=== PATIENT | female | born 1960 | race Caucasian/White ===

== ENCOUNTER 2024-01-23 10:56 | Outpatient (OUT) | payer MEDICARE, SELFPAY ==
--- NOTE | 2024-01-23 11:05 | ECG_ITS ---
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
--- NOTE | 2024-01-23 11:47 | P.GSHP_ITS ---
History of Present Illness History of Present Illness Chief complaint: left kidney stone Narrative: Patient presents for preadmission testing. Please see HPI from Dr. Smith dated January 20, 2024. Review of Systems ROS Narrative Please see ROS from Dr. Smith dated January 20, 2024. [facility] Medical History (Updated 01/23/24 @ 11:23 by Paulina Crowe NP) Back pain ?M54.9 - Dorsalgia, unspecified (ICD-10) Arthritis ?M19.90 - Unspecified osteoarthritis, unspecified site (ICD-10) Depression ?F32.A - Depression, unspecified (ICD-10) COVID-19 ?U07.1 - COVID-19 (ICD-10) Sleep apnea ?G47.30 - Sleep apnea, unspecified (ICD-10) Pneumonia ?J18.9 - Pneumonia, unspecified organism (ICD-10) Migraine ?G43.909 - Migraine, unspecified, not intractable, without status migrainosus (ICD-10) S/P extracorporeal shock wave therapy ?Z98.890 - Other specified postprocedural states (ICD-10) S/P extracorporeal shock wave therapy ?Z98.890 - Other specified postprocedural states (ICD-10) Kidney stones ?N20.0 - Calculus of kidney (ICD-10) Cataract ?H26.9 - Unspecified cataract (ICD-10) GERD (gastroesophageal reflux disease) ?K21.9 - Gastro-esophageal reflux disease without esophagitis (ICD-10) Elevated blood pressure reading in office without diagnosis of hypertension ?R03.0 - Elevated blood-pressure reading, without diagnosis of hypertension (ICD-10) Postoperative nausea and vomiting ?R11.2 - Nausea with vomiting, unspecified (ICD-10) ?Z98.890 - Other specified postprocedural states (ICD-10) Surgical History (Updated 01/23/24 @ 11:23 by Paulina Crowe NP) H/O hand surgery ?Z98.890 - Other specified postprocedural states (ICD-10) History of cholecystectomy ?Z90.49 - Acquired absence of other specified parts of digestive tract (ICD- 10) History of dilation and curettage ?Z98.890 - Other specified postprocedural states (ICD-10) History of dilation and curettage ?Z98.890 - Other specified postprocedural states (ICD-10) History of colonoscopy ?Z98.890 - Other specified postprocedural states (ICD-10) History of carpal tunnel release ?Z98.890 - Other specified postprocedural states (ICD-10) History of carpal tunnel release ?Z98.890 - Other specified postprocedural states (ICD-10) History of section ?Z98.891 - History of uterine scar from previous surgery (ICD-10) History of section ?Z98.891 - History of uterine scar from previous surgery (ICD-10) History of appendectomy ?Z90.49 - Acquired absence of other specified parts of digestive tract (ICD- 10) History of hysterectomy ?Z90.710 - Acquired absence of both cervix and uterus (ICD-10) Family History (Updated 01/23/24 @ 11:23 by Paulina Crowe NP) Other Family history of colon cancer Family history of hypertension Family history of prostate cancer Family history of stroke Social History (Updated 01/23/24 @ 11:16 by Paulina Crowe NP) Within the past year, how often did you have a drink containing alcohol: never Score interpretation: A score less than 3 is consistent with normal alcohol consumption. Smoking status: Never smoker Non-prescribed substance use: denies use Highest level of school completed/degree received: high school graduate Meds Home Medications and Allergies Home Medications ?Medication ?Instructions ?Recorded ?Confirmed ?Type sertraline 100 mg tablet 100 mg PO DAILY 01/23/24 01/23/24 History tamsulosin 0.4 mg capsule 0.4 mg PO Q24H 01/23/24 01/23/24 History Allergies Allergy/AdvReac Type Severity Reaction Status Date / Time No Known Drug Allergies Allergy Verified 01/23/24 11:14 Exam Narrative Exam Narrative: Constitutional: Awake, alert, comfortable, well-appearing, nontoxic, interactive, vital signs as charted Head: Normocephalic, atraumatic Neck: Supple, normal appearance, normal range of motion, no meningeal signs, no lymphadenopathy Respiratory: No respiratory distress, breath sounds clear Cardiovascular: Regular rate and rhythm, strong and regular heart tones Abdomen: Nontender, normal bowel sounds, soft, no CVA tenderness Musculoskeletal: Normal gait, no swelling or edema Skin: No rashes or induration, no lesions, only visible skin inspected Neuro: No neurological deficits, normal sensation Psychiatric: Oriented ?3, flat affect Assessment and Plan Assessment and Plan (1) Kidney stones: Plan Cystoscopy, left ureteroscopy, laser lithotripsy, left stent placement scheduled with Dr. Smith February 05, 2024. The patient admits to dyspnea when climbing stairs but denies chest pain. She states she has never been treated for hypertension but has had an elevated blood pressure reading recently since her kidney stone episode. She states her PCP is aware of the blood pressure and has elected to monitor the situation. The patient had an abnormal preliminary EKG today in preadmission testing which was reported to Dr. Smith's office.
[2024-01-23 12:54] LABS: Basophils Absolute Auto 0.1 10^3/uL (0.0-0.1); Basophils Percent Auto 0.6 % (0.2-2.0); Eosinophils Absolute Auto 0.5 10^3/uL (0.0-0.7); Eosinophils Percent Auto 5.5 % (0.9-7.0); Hematocrit 42.2 % (36.0-48.0); Hemoglobin 13.7 g/dL (12.0-16.0); Immature Granulocytes Abs Auto 0.02 10^3/uL (0.00-0.03); Immature Granulocytes Pct Auto 0.2 % (0.0-0.5); Lymphocytes Absolute Auto 2.9 10^3/uL (1.2-3.8); Lymphocytes Percent Auto 33.9 % (20.5-60.0); Mean Corpuscular HGB Conc 32.5 g/dL (29.9-35.2); Mean Corpuscular Hemoglobin 28.5 pg (26.7-34.0); Mean Corpuscular Volume 87.9 fL (81.0-99.0); Mean Platelet Volume 9.8 fL (9.5-13.5); Monocytes Absolute Auto 0.6 10^3/uL (0.3-0.8); Monocytes Percent Auto 6.8 % (1.7-12.0); Neutrophils Absolute Auto 4.6 10^3/uL (1.4-6.5); Platelet Count 309 10^3/uL (150-450); Red Cell Distribution Width 13.2 % (11.0-15.0); White Blood Count 8.7 10^3/uL (4.0-11.0)
[2024-01-23 13:03] LABS: Partial Thromboplastin Time 29.2 sec (22.3-36.2); Prothrombin Time 9.8 sec (9.0-11.6)
[2024-01-23 13:16] LABS: Anion Gap 7.3; BUN Creatinine Ratio 17.3; Calcium 9.7 mg/dL (8.5-10.1); Carbon Dioxide 30.7 mmol/L (21.0-32.0); Chloride 105 mmol/L (98-107); Estimated GFR (African America >60 (>=60); Estimated GFR (Non-African Ame 53 (>=60); Glucose 112 mg/dL (74-106); INR <0.93; Sodium 139 mmol/L (136-145)
== END 2024-01-23 10:57 | disposition home or self-care (01) ==
LOC: PST 11:00
PROVIDERS: PCP Family Medicine; Visit Provider Urology
DX: Z01.810 Encounter for preprocedural cardiovascular examination (principal); Z01.812 Encounter for preprocedural laboratory examination; Z01.818 Encounter for other preprocedural examination; N20.0 Calculus of kidney
CPT/HCPCS: 80048; 85025; 85610; 85730; 93005; G0463

== ENCOUNTER 2024-03-06 14:07 | Outpatient (OUT) | payer MEDICARE, SELFPAY ==
--- OUTSIDE RECORDS SUMMARY | 2024-03-06 14:13 | XMS_ITS | CCD ---
Author Organization [facility] Care Team Providers Care Production Painter Name Role Phone Soraya Hammer Primary Care Physician [phone] KAITLIN, DR MACIAS Admitting Unavailable MADRIGAL, DR MACIAS Attending Unavailable MISC, DR DIMAS Primary Care Unavailable MADRIGAL, DR MACIAS Consulting Unavailable ZIEBER, DR OUMOU Jose Consulting Unavailable AGUBOSIM, BELEM Consulting Unavailable DORKOSKIE, SORAYA Consulting Unavailable MADRIGAL, DR MACIAS Admitting Unavailable MADRIGAL, DR MACIAS Attending Unavailable MADRIGAL, DR MACIAS Consulting Unavailable WEST, DR REI Bernstein Consulting Unavailable VALDEZ, LUCHO Consulting Unavailable MCCORNACK, OUMOU Consulting Unavailable MADRIGAL, DR MACIAS Admitting Unavailable MADRIGAL, DR MACIAS Attending Unavailable MADRIGAL, DR MACIAS Admitting Unavailable MADRIGAL, DR MACIAS Attending Unavailable MADRIGAL, DR MACIAS Admitting Unavailable MADRIGAL, DR MACIAS Attending Unavailable REQUEST, DR TRONCOSO LISTED Primary Care Unavaila ble MADRIGAL, DR MACIAS Consulting Unavailable MADRIGAL, DR MACIAS Admitting Unavailable MADRIGAL, DR MACIAS Attending Unavailable MISC, DR DIMAS Primary Care Unavailable MADRIGAL, DR MACIAS Consulting Unavailable Self, Referral Attending Provider Unavailable FRED Smith Primary Care Provider FRED Smith Referring Provider [phone] CORA BRANHAM Primary Care Physician [phone] Marty Vargas Primary Care Physician Self, Referral Attending Provider Unavailable DO Marty Vargas Primary Care Provider Marty Vargas Primary Care Unavailable Self, Referral Attending Unavailable Self, Referral Admitting Unavailable Marlin Smith Attending Unavailable Marlin Smith Admitting Unavailable Marlin Smith Attending Unavailable Marlin Smith Admitting Unavailable Marlin Smith Attending Unavailable Parag Toscano Attending Unavailable Marlin Smith Attending Unavailable Sam, Marty Arndt Attending Unavailable MD Greg Soni Consulting Unavailable Link, Marty Arndt Admitting Unavailable Link, Marty Arndt Attending Unavailable Link, Marty Arndt Referring Unavailable Greg Soni Consulting Unavailable Greg Soni Consulting Unavailable Link, Marty Arndt Attending Unavailable LIZCORA COX Attending Unavailable Link, Marty Arndt Attending Unavailable Link, Marty Arndt Attending Unavailable Link, Marty Arndt Attending Unavailable ClarisaminYoung wiley Attending Unavaila ble Young Vasquez Referring Unavaila ble Gilberto MADRIGAL Attending Unavailable Bret, Nany A Referring Unavailable Bret, Nany A Admitting Unavailable Bret, Nany A Attending Unavailable Bret, Nany A Referring Unavailable LIZ, CORA A Admitting Unavailable LIZ, CORA A Attending Unavailable LIZ, CORA A Admitting Unavailable LIZ, CORA A Attending Unavailable Parag Toscano Attending Unavailable STEFANY BECKHAM Attending Unavailable Miguel Ag Attending Unavailable LIZ, CORA A Referring Unavailable Bret, Nany A Attending Unavailable Link, Marty Arndt Attending Unavailable Allergies Allergy Classification Reported Allergen(s) Allergy Type Date of Onset Reaction(s) Facility (20 sources) Adhesive Tape; Translations: [Tape] Drug allergy Blister [facility] (2 sources) Adhesive agent Drug allergy (disorder) [facility] (3 sources) Hypoallergenic paper tape; Translations: [Hypoallergenic paper tape] Propensity to adverse reactions (disorder) [facility] Repository Medications Current Medications Medication Drug Class(es) Dates Sig (Normalized) Sig (Original) acetaminophen 325 mg / HYDROcodone bitartrate 5 mg oral tablet (3 sources) Opioid Agonist Start: 10-20-2021 take 1 tablet by mouth every eight hours Mcintire 325 mg-5 mg oral tablet 1 tab(s), Oral, q8hr, 15 tab(s), Refill(s) 0, every 8 hours PRN for pain, [facility], 158, cm, 10/20/21 9:52:00 EDT, Height/Length Dosing, 94.9, kg, 10/20/21 9:52:00 EDT, Weight Dosing Start Date: 10/20/21 Status: Ordered acetaminophen 325 mg / oxyCODONE hydrochloride 5 mg oral tablet (1 source) Opioid Agonist Start: 12-27-2023 End: 12-30-2023 Percocet 5 mg-325 mg oral tablet 1 tab(s), Oral, q6hr as needed for pain for 3 day(s), 15 tab(s), Refill(s) 0, [facility], 159, cm, 12/27/23 10:55:00 EDT, Height/Length Dosing, 84, kg, 12/27/23 10:55:00 EDT, Weight Dosing Start Date: 12/27/23 Stop Date: 12/30/23 Status: Ordered amoxicillin 500 mg oral capsule (1 source) Penicillin-class Antibacterial Start: 08-14-2023 take 1 capsule by mouth every twelve hours amoxicillin 500 mg Cap 500 mg = 1 cap(s), Oral, q12hr, # 20 cap(s), Refills(s) 0, Pharmacy: [facility], 158, cm, 08/14/23 9:13:00 EDT, Height/Length Dosing, 87.5, kg, 08/14/23 9:13:00 EDT, Weight Dosing Start Date: 08/14/23 Status: Ordered amoxicillin 875 mg / clavulanate 125 mg oral tablet (3 sources) Penicillin-class Antibacterial Start: 02-13-2023 End: 02-23-2023 Augmentin 875 mg-125 mg Tab 1 tab(s), Oral, BID for 10 day(s), 20 tab(s), Refill(s) 0, [facility], 158, cm, 02/13/23 14:30:00 EDT, Height/Length Dosing, 86.1, kg, 02/13/23 14:30:00 EDT, Weight Dosing Start Date: 02/13/23 Stop Date: 02/23/23 Status: Ordered azithromycin 250 mg oral tablet (1 source) Macrolide Antimicrobial Start: 02-15-2022 End: 02-20-2022 Zithromax 250 mg Tab = 1 packet(s), Oral, As Directed, as directed on package labeling, X 5 day(s), # 6 tab(s), Refills(s) 0, Pharmacy: [facility], 158, cm, 02/15/22 16:53:00 EDT, Height/Length Dosing, 94.3, kg, 02/15/22 16:53:00 EDT, Weight Dosing Start Date: 02/15/22 Stop Date: 02/20/22 Status: Ordered brompheniramine maleate 0.4 mg/ml / dextromethorphan hydrobromide 2 mg/ml / pseudoephedrine hydrochloride 6 mg/ml oral solution (4 sources) alpha-Adrenergic Agonist, Uncompetitive H-unxlfx-W-aspartate Receptor Antagonist, Sigma-1 Agonist Start: 02-15-2022 take 10 mL by mouth four times daily for cough and congestion Bromfed DM oral syrup 10 mL, Oral, QID for cough and congestion, 200 mL, Refill(s) 0, [facility], 158, cm, 02/15/22 16:53:00 EDT, Height/Length Dosing, 94.3, kg, 02/15/22 16:53:00 EDT, Weight Dosing Start Date: 02/15/22 Status: Ordered cephalexin 500 mg oral capsule (2 sources) Cephalosporin Antibacterial Start: 10-18-2021 End: 10-25-2021 take 1 capsule by mouth every six hours Keflex 500 mg Cap 500 mg = 1 cap(s), Oral, q6hr, X 7 day(s), # 28 cap(s), Refills(s) 0, Pharmacy: [facility], 158, cm, 10/18/21 17:33:00 EDT, Height/Length Dosing, 82, kg, 10/18/21 17:33:00 EDT, Weight Dosing Start Date: 10/18/21 Stop Date: 10/25/21 Status: Ordered Clobetasol (10 sources) Corticosteroid Start: 11-10-2021 clobetasol topical 0.05% cream 1 rebeka, Topical, BID, 45 gram, Refill(s) 1, [facility], 158, cm, 11/10/21 11:48:00 EDT, Height/Length Dosing, 92.4, kg, 11/10/21 11:48:00 EDT, Weight Dosing Start Date: 11/10/21 Status: Ordered Start: 10-07-2020 clobetasol top ical 0.05% cream 1 rebeka, Topical, BID, 45 gram, Refill(s) 1, [facility], 157.2, cm, 03/31/20 5:29:00 EST, Height/Length Dosing, 80.2, kg, 03/31/20 5:29:00 EST, Weight Dosing Start Date: 10/07/20 Status: Ordered doxepin hydrochloride 10 mg oral capsule (5 sources) Tricyclic Antidepressant Start: 03-30-2020 take 2 capsules by mouth once daily at bedtime doxepin 10 mg Cap 20 mg = 2 cap(s), Oral, Once a day (at bedtime), Insomnia Start Date: 03/30/20 Status: Ordered Fish Oils (11 sources) Start: 04-16-2023 Fish Oil Refill(s) 0 Start Date: 04/16/23 Status: Ordered hyoscyamine sulfate 0.125 mg oral tablet (1 source) Start: 07-04-2023 take 1 tablet by mouth four times daily Levsin 0.125 mg SL Tab 0.125 mg = 1 tab(s), Oral, QID, # 40 tab(s), Refills(s) 0, Pharmacy: [facility], 158, cm, 07/04/23 9:24:00 EST, Height/Length Dosing, 87, kg, 07/04/23 9:24:00 EST, Weight Dosing Start Date: 07/04/23 Status: Ordered linaclotide 0.072 mg oral capsule (1 source) Guanylate Cyclase-C Agonist Start: 07-04-2023 take 1 capsule by mouth once daily Linzess 72 mcg oral capsule 72 mcg = 1 cap(s), Oral, Daily, # 30 cap(s), Refills(s) 3, Pharmacy: [facility], 158, cm, 07/04/23 9:24:00 EST, Height/Length Dosing, 87, kg, 07/04/23 9:24:00 EST, Weight Dosing Start Date: 07/04/23 Status: Ordered naproxen 500 mg delayed release oral tablet (19 sources) Nonsteroidal Anti-inflammatory Drug Start: 06-26-2021 take 1 tablet by mouth twice daily naproxen 500 mg oral enteric coated tablet 500 mg = 1 tab(s), Oral, BID, # 28 tab(s), Refills(s) 0, Pharmacy: [facility], 158, cm, 10/18/21 17:33:00 EDT, Height/Length Dosing, 82, kg, 10/18/21 17:33:00 EDT, Weight Dosing Start Date: 10/18/21 Status: Ordered Miralax (20 sources) Osmotic Laxative Start: 04-16-2023 MiraLax Refill(s) 0 Start Date: 04/16/23 Status: Ordered Start: 03-03-2020 take 1 g by mouth once daily M iraLax gm, Oral, Daily, Refill(s) 0 Start Date: 03/03/20 Status: Ordered rOPINIRole 0.5 mg oral tablet (10 sources) Nonergot Dopamine Agonist Start: 09-20-2015 take 0.5 mg by mouth once daily ropinirole 0.5 mg, Oral, Daily, Refills(s) 0, Spasm Start Date: 09/20/15 Status: Ordered sertraline 100 mg oral tablet (20 sources) Serotonin Reuptake Inhibitor Start: 08-02-2023 sertraline 100 mg Tab 50 mg = 0.5 tab(s), Oral, Daily, # 90 tab(s), Refills(s) 1, Pharmacy: [facility], 158, cm, 07/04/23 9:24:00 EST, Height/Length Dosing, 87, kg, 07/04/23 9:24:00 EST, Weight Dosing Start Date: 08/02/23 Status: Ordered Start: 08-02-2023 take 1 tablet by [facility] once daily sertraline 100 mg Tab 100 mg = 1 tab(s), Oral, Daily, # 90 tab(s), Refills(s) 1, Pharmacy: [facility], 158, cm, 07/04/23 9:24:00 EST, Height/Length Dosing, 87, kg, 07/04/23 9:24:00 EST, Weight Dosing Start Date: 08/02/23 Status: Ordered Start: 04-16-2023 sertraline 100 mg Tab Refills(s) 0 Start Date: 04/16/23 Status: Ordered Start: 11-10-2021 take 1 tablet by radha th once daily Zoloft 100 mg Tab 100 mg = 1 tab(s), Oral, Daily, # 90 tab(s), Refills(s) 3, Pharmacy: [facility], 158, cm, 11/10/21 11:48:00 EDT, Height/Length Dosing, 92.4, kg, 11/10/21 11:48:00 EDT, Weight Dosing Start Date: 11/10/21 Status: Ordered Start: 10-07-2020 take 1 tablet by [facility] once daily Zoloft 100 mg Tab 100 mg = 1 tab(s), Oral, Daily, # 90 tab(s), Refills(s) 3, Pharmacy: [facility], 157.2, cm, 03/31/20 5:29:00 EST, Height/Length Dosing, 80.2, kg, 03/31/20 5:29:00 EST, Weight Dosing Start Date: 10/07/20 Status: Ordered tamsulosin hydrochloride 0.4 mg oral capsule (18 sources) alpha-Adrenergic Ashley Start: 01-20-2024 take 1 capsule by mouth once daily Flomax 0.4 mg Cap 0.4 mg = 1 cap(s), Oral, Daily, # 30 cap(s), Refills(s) 1, Pharmacy: [facility], 159, cm, 01/20/24 13:18:00 EDT, Height/Length Dosing, 84, kg, 01/20/24 13:18:00 EDT, Weight Dosing Start Date: 01/20/24 Status: Ordered Start: 12-27-2023 take 1 capsule by [facility] once daily Flomax 0.4 mg Cap 0.4 mg = 1 cap(s), Oral, Daily, # 10 cap(s), Refills(s) 0, Pharmacy: [facility], 159, cm, 12/27/23 10:55:00 EDT, Height/Length Dosing, 84, kg, 12/27/23 10:55:00 EDT, Weight Dosing Start Date: 12/27/23 Status: Ordered Start: 10-18-2021 End: 10-22-2021 take 1 capsule by mouth once daily tamsulosin 0.4 mg Cap 0.4 mg = 1 cap(s), Oral, Daily, # 30 cap(s), Refills(s) 0, Pharmacy: [facility], 158, cm, 10/20/21 9:52:00 EDT, Height/Length Dosing, 94.9, kg, 10/20/21 9:52:00 EDT, Weight Dosing Start Date: 10/20/21 Status: Ordered Zofran ODT 4 mg Tab-Dis (8 sources) Start: 12-27-2023 take 1 tablet by mouth three times daily Zofran ODT 4 mg Tab-Dis 4 mg = 1 tab(s), Oral, TID, # 15 tab(s), Refills(s) 0, Pharmacy: [facility], 159, cm, 12/27/23 10:55:00 EDT, Height/Length Dosing, 84, kg, 12/27/23 10:55:00 EDT, Weight Dosing Start Date: 12/27/23 Status: Ordered Start: 06-26-2021 take 1 tablet by radha th every eight hours as needed for nausea Zofran ODT 4 mg Tab-Dis 4 mg = 1 tab(s), Oral, q8hr, PRN Nausea/Vomiting, # 20 tab(s), Refills(s) 0, Pharmacy: [facility], 157.5, cm, 06/26/21 2:38:00 EST, Height/Length Dosing, 85, kg, 06/26/21 2:38:00 EST, Weight Dosing Start Date: 06/26/21 Status: Ordered Completed/Discontinued Medications Medication Drug Class(es) Dates Sig (Normalized) Sig (Original) polyethylene glycol 3350 621183 mg / potassium chloride 1480 mg / sodium bicarbonate 5720 mg / sodium chloride 53353 mg powder for oral solution (3 sources) Osmotic Laxative Start: 04-16-2023 NuLYTELY Mills oral powder for reconstitution See Instructions, 1 EA, Refill(s) 0, Prior to colonoscopy., [facility], 160, cm, 04/16/23 8:45:00 EST, Height/Length Dosing, 85.9, kg, 04/16/23 8:45:00 EST, Weight Dosing Start Date: 04/16/23 Status: Ordered Problems Active Problems Problem Classification Problem Date Documented Da te Episodic/Chronic Abdominal pain (20 sources) Abdominal pain; Translations: [Unspecified abdominal pain] Onset: 10-18-2021 Episodic Bacterial infection; unspecified site (2 sources) Bacterial infectious disease; Translations: [Other specified bacterial agents as the cause of diseases classified elsewhere] Onset: 02-13-2023 Episodic Biliary tract disease (20 sources) Gallstone 07-10-2013 Episodic Calculus of urinary tract (20 sources) Kidney stone; Translations: [Calculus of kidney] Onset: 10-18-2021 07-05-2021 Episodic Diabetes mellitus without complication (20 sources) Impaired fasting glycemia; Translations: [Impaired fasting glucose] Onset: 02-25-2023 02-04-2020 Episodic Disorders of lipid metabolism (20 sources) Hyperlipidemia; Translations: [Hyperlipidemia, unspecified] Onset: 11-09-2021 02-04-2020 Chronic Diverticulosis and diverticulitis (20 sources) Diverticulitis 09-23-2017 Chronic Essential hypertension (1 source) Essential hypertension; Translations: [Essential (primary) hypertension] Onset: 08-09-2023 Chronic Genitourinary symptoms and ill-defined conditions (20 sources) Stress incontinence (female) (male); Translations: [Genuine stress incontinence] Onset: 11-01-2021 Chronic Genitourinary symptoms and ill-defined conditions (20 sources) Microscopic hematuria; Translations: [Other microscopic hematuria] Onset: 10-20-2021 Episodic Inflammatory diseases of female pelvic organs (20 sources) Vaginitis 02-04-2020 Episodic Mood disorders (20 sources) Chronic depression; Translations: [Major depressive disorder] Onset: 11-09-2021 09-14-2019 Chronic Nausea and vomiting (1 source) Nausea; Translations: [Nausea] Onset: 10-18-2021 Episodic Osteoarthritis (20 sources) Arthritis; Translations: [Unspecified osteoarthritis, unspecified site] Onset: 11-09-2021 07-05-2021 Chronic Other and unspecified benign neoplasm (17 sources) History of polyp of colon; Translations: [Personal history of colonic polyps] Onset: 04-16-2023 Episodic Other circulatory disease (3 sources) Elevated blood-pressure reading without diagnosis of hypertension; Translations: [Elevated blood-pressure reading, without diagnosis of hypertension] Onset: 02-13-2023 Episodic Other circulatory disease (20 sources) Elevated blood pressure 01-31-2023 Episodic Other connective tissue disease (20 sources) Achilles tendinitis 01-31-2023 Episodic Other connective tissue disease (11 sources) Heel pain 01-31-2023 Episodic Other diseases of kidney and ureters (6 sources) Obstruction of pelviureteric junction 01-20-2024 Episodic Other ear and sense organ disorders (1 source) Impacted cerumen; Translations: [Impacted cerumen, unspecified ear] Onset: 02-17-2023 Episodic Other ear and sense organ disorders (1 source) Impacted cerumen in right ear; Translations: [Impacted cerumen, right ear] Onset: 02-25-2023 Episodic Other gastrointestinal disorders (1 source) Constipation by outlet obstruction; Translations: [Outlet dysfunction constipation] Onset: 07-04-2023 Episodic Other hereditary and degenerative nervous system conditions (20 sources) Restless legs 02-04-2020 Chronic Other hereditary and degenerative nervous system conditions (1 source) Restless legs syndrome; Translations: [RESTLESS LEGS SYNDROME] Onset: 07-24-2021 Chronic Other nervous system disorders (20 sources) Carpal tunnel syndrome 02-01-2012 Chronic Other non-traumatic joint disorders (20 sources) Pain in wrist 09-14-2019 Episodic Other nutritional; endocrine; and metabolic disorders (20 sources) Body mass index 30+ - obesity 02-04-2020 Chronic Other nutritional; endocrine; and metabolic disorders (10 sources) Simple obesity 2020 Chronic Other nutritional; endocrine; and metabolic disorders (1 source) Obesity, unspecified; Translations: [OBESITY UNSPECIFIED] Onset: 11-09-2021 Chronic Other nutritional; endocrine; and metabolic disorders (1 source) Body mass index (BMI) 35.0-35.9, adult; Translations: [BODY MASS INDEX BMI 35.0-35.9 ADULT] Onset: 11-09-2021 Chronic Other nutritional; endocrine; and metabolic disorders (1 source) Body mass index (BMI) 38.0-38.9, adult; Translations: [BODY MASS INDEX BMI 38.0-38.9 ADULT] Onset: 07-24-2021 Chronic Other nutritional; endocrine; and metabolic disorders (3 sources) Obese class I; Translations: [Body mass index (BMI) 34.0-34.9, adult] Onset: 02-13-2023 Chronic Other nutritional; endocrine; and metabolic disorders (20 sources) Obesity; Translations: [Obesity, unspecified] Onset: 01-30-2024 01-31-2023 Chronic Other nutritional; endocrine; and metabolic disorders (1 source) Metabolic disease; Translations: [Other specified metabolic disorders] Onset: 07-04-2023 Chronic Other nutritional; endocrine; and metabolic disorders (3 sources) Obese class II; Translations: [Body mass index (BMI) 35.0-35.9, adult] Onset: 08-14-2023 Chronic Other nutritional; endocrine; and metabolic disorders (20 sources) Abnormal weight gain 02-04-2020 Episodic Other nutritional; endocrine; and metabolic disorders (2 sources) Abnormal weight loss; Translations: [Abnormal weight loss] Onset: 04-16-2023 Episodic Other nutritional; endocrine; and metabolic disorders (6 sources) Weight loss 04-16-2023 Episodic Other screening for suspected conditions (not mental disorders or infectious disease) (2 sources) Encounter for screening mammogram for malignant neoplasm of breast; Translations: [Electrocardiogram abnormal] Onset: 01-03-2024 Episodic Other skin disorders (12 sources) Dystrophia unguium; Translations: [Nail dystrophy] Onset: 08-09-2023 Episodic Other upper respiratory infections (17 sources) Acute upper respiratory infection; Translations: [Acute upper respiratory infection, unspecified] Onset: 02-15-2022 Episodic Otitis media and related conditions (16 sources) Otitis media; Translations: [Otitis media, unspecified, right ear] Onset: 02-15-2022 Episodic Residual codes; unclassified (20 sources) Obstructive sleep apnea of adult 02-04-2020 Chronic Residual codes; unclassified (1 source) Obstructive sleep apnea (adult) (pediatric); Translations: [OBSTRUCTIVE SLEEP APNEA] Onset: 11-09-2021 Chronic Residual codes; unclassified (1 source) Sleep apnea, unspecified; Translations: [SLEEP APNEA UNSPECIFIED] Onset: 11-09-2021 Chronic Residual codes; unclassified (1 source) Obstructive sleep apnea syndrome; Translations: [Obstructive sleep apnea (adult) (pediatric)] Onset: 01-30-2024 Chronic Residual codes; unclassified (2 sources) Family history of malignant neoplasm of digestive organ; Translations: [Family history of malignant neoplasm of digestive organs] Onset: 04-16-2023 Episodic Residual codes; unclassified (15 sources) Family history of cancer of colon 04-16-2023 Episodic Residual codes; unclassified (1 source) Acquired absence of organ; Translations: [Acquired absence of other specified parts of digestive tract] Onset: 07-04-2023 Episodic Residual codes; unclassified (1 source) Pelvic organ finding; Translations: [Acquired absence of both cervix and uterus] Onset: 07-04-2023 Episodic Residual codes; unclassified (3 sources) Patient encounter status; Translations: [Other specified health status] Onset: 08-09-2023 Episodic Unclassified (1 source) CONTACT W/AND (SUSP) EXPOS COVID-19; Translations: [CONTACT W/AND (SUSP) EXPOS COVID-19] Onset: 07-19-2021 Past or Other Problems Problem Classification Problem Date Documented Da te Episodic/Chronic Unclassified (20 sources) Patient encounter status 02-04-2020 Unclassified (1 source) Obese class I; Translations: [Obesity, class 1] Onset: 02-18-2024 Results Test Name Value Interpretation Reference Range Facil ity Ambulatory Visit Summaryon 1 Ambulatory Visit Summary Ambulatory Visit Summary SHEA PROCTOR :1960 Visit Date:02/18/2024 Ambulatory Visit Instructions Your Diagnosis Encounter for initial annual wellness visit (AWV) in Medicare patient MDD (major depressive disorder), recurrent episode, mild Kidney stones Adult BMI 34.0-34.9 kg/sq m Class 1 obesity due to excess calories in adult Your Care Team Attending Physician Marty Lozoya DO Primary Care Physician - Marty Vargas DO This Is Your Medications List polyethylene glycol 3350 (MiraLax) sertraline (sertraline 100 mg Tab) tamsulosin (Flomax 0.4 mg Cap) Procedures Performed Exercise stress ECG test (02/03/2024), Release of tendon (04/13/2020), Abdominal hysterectomy, Appendectomy, C SECTION X2, Carpal tunnel release, Colonoscopy, D&C - Dilatation and curettage, Laparoscopic cholecystectomy. Discharge Vitals Heart Rate (Peripheral) 94 Respiratory Rate 16 Blood Pressure 118/70 Height 158 cm Height 62 in Weight 85 kg Weight 187 lb BMI 34.05 What to do next Scheduled Follow-Up Appointments Saturday 11:00 AM EDT Where: [facility] [address] [place] [address]- Medications What How Much When Instructions Unchanged polyethylene glycol 3350 (MiraLax) Unchanged sertraline (sertraline 100 mg Tab) 0.5 Tablets By Mouth Every day Unchanged tamsulosin (Flomax 0.4 mg Cap) 1 Capsules By Mouth Every day Allergies Tape (Blister) Problems Ongoing - Any problem that you are currently receiving treatment for. Arthritis CTS - Carpal tunnel syndrome Dystrophic nail Elevated blood pressure reading Family history of colon cancer History of colon polyps History of nephrolithiasis Hyperlipidemia Impaired fasting glucose Kidney stones MDD (major depressive disorder), recurrent episode, mild Obesity Obstruction of left ureteropelvic junction (UPJ) due to stone Obstructive sleep apnea, adult Restless leg syndrome Stress incontinence Historical - Any problem that you are no longer receiving treatment for. Abnormal weight gain Achilles tendonitis Acute bacterial sinusitis Adult BMI 33.0-33.9 kg/sq m Adult BMI 35.0-35.9 kg/sq m BMI 35.0-35.9,adult Chronic depression Diverticulitis Flank pain Gallstones Screening for diabetes mellitus Screening, lipid Vaginitis Patient Survey You may receive a survey via text or e-mail asking about your office visit. Please share your experience with us by completing your survey. We appreciate your feedback and thank you for choosing us for your care. Education Materials Preventive Care 65 Years and Older, Female Preventive care refers to lifestyle choices and visits with your health care provider that can promote health and wellness. Preventive care visits are also called wellness exams. What can I expect for my preventive care visit? Counseling Your health care provider may ask you questions about your: ??? Medical history, including: ? Past medical problems. ? Family medical history. ? and menstrual history. ? History of falls. ??? Current health, including: ? Memory and ability to understand (cognition). ? Emotional well-being. ? Home life and relationship well-being. ? Sexual activity and sexual health. ??? Lifestyle, including: ? Alcohol, nicotine or tobacco, and drug use. ? Access to firearms. ? Diet, exercise, and sleep habits. ? Work and work environment. ? Sunscreen use. ? Safety issues such as seatbelt and bike helmet use. Physical exam Your health care provider will check your: ??? Height and weight. These may be used to calculate your BMI (body mass index). BMI is a measurement that tells if you are at a healthy weight. ??? Waist circumference. This measures the distance around your waistline. This measurement also tells if you are at a healthy weight and may help predict your risk of certain diseases, such as type 2 diabetes and high blood pressure. ??? Heart rate and blood pressure. ??? Body temperature. ??? Skin for abnormal spots. What immunizations do I need? Vaccines are usually given at various ages, according to a schedule. Your health care provider will recommend vaccines for you based on your age, medical history, and lifestyle or other factors, such as travel or where you work. What tests do I need? Screening Your health care provider may recommend screening tests for certain conditions. This may include: ??? Lipid and cholesterol levels. ??? Hepatitis C test. ??? Hepatitis B test. ??? HIV (human immunodeficiency virus) test. ??? STI (sexually transmitted infection) testing, if you are at risk. ??? Lung cancer screening. ??? Colorectal cancer screening. ??? Diabetes screening. This is done by checking your blood sugar (glucose) after you have not e (more content not included)... Normal [facility] Family Medicine Office/Clini c Noteon 02-20-2024 Family Medicine Office/Clinic Note Family Medicine Office/Clinic Note Chief Complaint Initial AWV History of Present Illness I was in the office and available for consultation and to provide direct supervision at the time of this visit. I have provided supervision of the care team and have reviewed this chart and office note and agree with the plan of care. Review of Systems PHQ Score Initial Depression Screen Score: 0 SCORE Physical Exam Vitals & Measurements HR: 94(Peripheral) RR: 16 BP: 118/70 SpO2: 95% HT: 158 cm HT: 62 in WT: 85 kg WT: 187 lb BMI: 34.05 Assessment/Plan 1. Encounter for initial annual wellness visit (AWV) in Medicare patient (Z00.00: Encounter for general adult medical examination without abnormal findings) The patient was given a customized and personalized print out of all the current AHRQ USPSTF???s recommendations for preventative services and all current CDC recommended immunizations, relevant risk recommendations and the following patient brochures were given. Reviewed What can I expect during my Medicare preventative care visit CDC-Falls Prevention and home safety screening reviewed. Patient denies any falls in last 12 months, voices no worry about falling, exhibits no problems with sitting and standing. Pt voices understanding with keeping walk way area free of clutter to prevent tripping and/or falling. Porter Advance Directives reviewed, printed packet given to pt. Pt to bring completed copy back to place on file in chart. Patient denies any problems with ADL???s and Instrumental ADL???s. Cognitive screening completed with memory and clock face drawing. No decline noted. Immunization Record reviewed with the patient. Discussed Flu vaccine with educational handout and availability. Pt declined the Flu vaccine today. COVID vaccines have been administered, immunization record is up to date. Allergies and medications reviewed and up to date. Patient denies concerns with taking medication as prescribed, reviewed OTC medications with patient with medication list up to date. Blood tests were reviewed: Discussed what tests need to be updated. Colonoscopy up to date, due for repeat 2028 DEXA scan and Mammogram were ordered. Reviewed concerns with bladder control over past 6 months with no concerns. Reviewed pain symptoms with patient: Reviewed all outside providers that patient follows. Last visit summary notes available in chart and/or have been requested. Follow up scheduled as directed. AWV has been scheduled 02/23/2025 Medicare provides yearly screening for alcohol and depression concerns. This is completed during our Medicare wellness visit for those who do not have a current diagnosis of depression or concerns with alcohol use. I spent a total of 15 minutes on this date of service which included preparing to see the patient, face to face patient care, completing clinical documentation, obtaining and/or reviewing separately obtained history, counseling and educating the patient with handouts. Explanations were provided with reviewing questionnaires. AUDIT risk assessment screening completed, risk score (0) with patient denying concerns with use. Completed PHQ-2 risk assessment for depression with risk score (0), negative findings. Patient has been reminded to notify the provider if there would be a change or concerns with symptoms with fear, unable to sleep, worrying too much or feeling down and/or sad with lost of interest with daily activities. Will continue to monitor with screening yearly during Medicare wellness visits. 2. MDD (major depressive disorder), recurrent episode, mild (F33.0: Major depressive disorder, recurrent, mild) Patient taking Sertraline daily, voices medication is effective. Follows up with PCP with medication management and symptom control. PHQ-9 risk assessment completed with negative findings. Total risk score is 02. Patient denies any suicidal ideations at this time. Reviewed additional signs/symptoms to monitor for and report to provider. 3. Kidney stones (N20.0: Calculus of kidney) Pt is currently seeing Urology and taking Tamsulosin daily as directed. Pt is waiting for Urology to call her back for Lithotripsy treament. Pt to follow up with Urology and PCP as directed. 4. Adult BMI 34.0-34.9 kg/sq m (Z68.34: Body mass index [BMI] 34.0-34.9, adult) The standard range for ages 18 and older is >=18.5 and < 25 kg/m2. Your BMI of 34.05 today was above this range, this falls in the obese category and there are medical benefits to weight loss. BMI monitoring is helpful with identifying a weight problem that may be related to a medical condition, or may increase the risk for medical problems. Your BMI and weight management will be followed at subsequent visits with your provider and monitored for progress. GOAL: promoting healthier lifestyle with diet changes in order to reach a healthy weight. 5. Class 1 obesity due to excess calories in adult (E66.811: Obesity, class 1) A combination of diet and exercise can hel (more content not included)... Normal [facility] Comment on above: Result Comment: Elec tronically Signed By: Marty Vargas DO\.br\Date and Time Signed: 02/20/24 10:46 EDT\.br\Electronically Co-Signed By: Maynor Kelly LPN\.br\Date and Time Co-Signed: 02/18/24 15:29 EDT Ambulatory Visit Summaryon 1 Ambulatory Visit Summary Ambulatory Visit Summary SHEA PROCTOR :1960 Visit Date:02/18/2024 Ambulatory Visit Instructions Your Care Team Attending Physician - Marty Vargas DO Primary Care Physician - Marty Vargas DO This Is Your Medications List polyethylene glycol 3350 (MiraLax) sertraline (sertraline 100 mg Tab) tamsulosin (Flomax 0.4 mg Cap) Procedures Performed Exercise stress ECG test (02/03/2024), Release of tendon (04/13/2020), Abdominal hysterectomy, Appendectomy, C SECTION X2, Carpal tunnel release, Colonoscopy, D&C - Dilatation and curettage, Laparoscopic cholecystectomy. Discharge Vitals Heart Rate (Peripheral) 94 Respiratory Rate 16 Blood Pressure 118/70 Height 158 cm Height 62 in Weight 85 kg Weight 187 lb BMI 34.05 What to do next Scheduled Follow-Up Appointments Saturday 11:00 AM EDT Where: [facility] [place] [address] [address] [place] [id number]- Medications What How Much When Instructions Unchanged polyethylene glycol 3350 (MiraLax) Unchanged sertraline (sertraline 100 mg Tab) 0.5 Tablets By Mouth Every day Unchanged tamsulosin (Flomax 0.4 mg Cap) 1 Capsules By Mouth Every day Allergies Tape (Blister) Problems Ongoing - Any problem that you are currently receiving treatment for. Arthritis CTS - Carpal tunnel syndrome Dystrophic nail Elevated blood pressure reading Family history of colon cancer History of colon polyps History of nephrolithiasis Hyperlipidemia Impaired fasting glucose Kidney stones MDD (major depressive disorder), recurrent episode, mild Obesity Obstruction of left ureteropelvic junction (UPJ) due to stone Obstructive sleep apnea, adult Restless leg syndrome Stress incontinence Historical - Any problem that you are no longer receiving treatment for. Abnormal weight gain Achilles tendonitis Acute bacterial sinusitis Adult BMI 33.0-33.9 kg/sq m Adult BMI 35.0-35.9 kg/sq m BMI 35.0-35.9,adult Chronic depression Diverticulitis Flank pain Gallstones Screening for diabetes mellitus Screening, lipid Vaginitis Patient Survey You may receive a survey via text or e-mail asking about your office visit. Please share your experience with us by completing your survey. We appreciate your feedback and thank you for choosing us for your care. Normal [facility] Ambulatory Visit Summaryon 1 Ambulatory Visit Summary Ambulatory Visit Summary SHEA PROCTOR :1960 Visit Date:01/30/2024 Ambulatory Visit Instructions Your Diagnosis Preprocedural examination Abnormal EKG Obstructive sleep apnea, adult Obesity Hyperlipidemia Impaired fasting glucose BMI 35.0-35.9,adult Non-smoker Your Care Team Attending Physician - Marty Vargas DO Primary Care Physician - Marty Vargas DO This Is Your Medications List polyethylene glycol 3350 (MiraLax) sertraline (sertraline 100 mg Tab) tamsulosin (Flomax 0.4 mg Cap) Procedures Performed Release of tendon (04/13/2020), Abdominal hysterectomy, Appendectomy, C SECTION X2, Carpal tunnel release, Colonoscopy, D&C - Dilatation and curettage, Laparoscopic cholecystectomy. Discharge Vitals Heart Rate (Peripheral) 70 Blood Pressure 138/84 Height 158 cm Height 62 in Weight 87.5 kg Weight 192.5 lb BMI 35.05 What to do next Scheduled Follow-Up Appointments Saturday 11:00 AM EDT Where: [place] [address] [place] [address]- You Need to Complete the Following ECG Stress Exercise, 01/30/24, Routine, Order for future visit, Transport Mode: Ambulatory, Reason: Abnormal EKG, Abnormal EKG, pp_set_radiology_sub specialty, Not Required, [facility] Medications What How Much When Instructions Unchanged polyethylene glycol 3350 (MiraLax) Unchanged sertraline (sertraline 100 mg Tab) 0.5 Tablets By Mouth Every day Unchanged tamsulosin (Flomax 0.4 mg Cap) 1 Capsules By Mouth Every day Medications and Immunizations Administered Not Given influenza virus vaccine, inactivated, Parent Or Guardian Refuses Allergies Tape (Blister) Problems Ongoing - Any problem that you are currently receiving treatment for. Arthritis CTS - Carpal tunnel syndrome Dystrophic nail Elevated blood pressure reading Family history of colon cancer History of colon polyps History of nephrolithiasis Hyperlipidemia Impaired fasting glucose Kidney stones MDD (major depressive disorder), recurrent episode, mild Obesity Obstruction of left ureteropelvic junction (UPJ) due to stone Obstructive sleep apnea, adult Restless leg syndrome Stress incontinence Historical - Any problem that you are no longer receiving treatment for. Abnormal weight gain Achilles tendonitis Acute bacterial sinusitis Adult BMI 33.0-33.9 kg/sq m Adult BMI 35.0-35.9 kg/sq m BMI 35.0-35.9,adult Chronic depression Diverticulitis Flank pain Gallstones Screening for diabetes mellitus Screening, lipid Vaginitis Patient Survey You may receive a survey via text or e-mail asking about your office visit. Please share your experience with us by completing your survey. We appreciate your feedback and thank you for choosing us for your care. Fiorella Garcia [facility] Medicine Office/Clini c Noteon 01-30-2024 Family Medicine Office/Clinic Note Family Medicine Office/Clinic Note Chief Complaint Surgical Clearance HPI Staff Patient here for Surgical Clearance Surgery: Cysto/Lt Ureteroscopy/Laser Lithotripsy/Stent Placement Date: 02/05/24 Provider: Dr. Smith Labs: 12/27/23 EK01/23/24, patient is needing surgical clearance from results, form printed and handed to provider. - Patient would like form faxed and to have a copy. Lynnette: per pt 01/08/23, NOMS Dexa: due [place]: 06/18/23, repeat in 5 years Flu: declines AMW: scheduled 02/18/24 History of Present Illness Patient presents today for preprocedural evaluation. Patient states that they are having a cystoscopy with ureteroscopy procedure done by Dr. Smith, and the surgeon wishes to have preprocedural evaluation prior to this. Patient has a cardiac history that shows elevated BP readings as well as HLD. She has known DIANA. Home readings in the past have confirmed she is not baseline hypertensive, she continues to monitor her BP as we have discussed previously. She has no reported history of NE, CVA, DVT, or PE. She is on no anticoagulating agents. Patient has a pulmonary history that shows known history of DIANA above. She has no history of asthma, smoking, or congenital lung anomalies. She has no significant family pulmonary history. Patient's anesthesia history shows that no prior reactions to anesthesia. Patient's metabolic history shows that history of calcium oxylate nephrolithiasis. She has known DIANA as above. Presurgical testing showed hypertension noted above in cardiac history. Patient had noted shortness of breath as per pulmonary history above. Patient had an abnormal EKG that they wished to have evaluated as well. Labs were not concerning other than for impaired fasting glucose. Review of Systems PHQ Score Initial Depression Screen Score: 0 SCORE ROS - Provider Constitutional: no fever, no chills Skin: no rash, no lesions, yes dystrophic nail ENMT: no ear pain, no sore throat, no congestion, no hoarseness. Respiratory: no shortness of breath, no cough, no wheezing. Cardiovascular: no chest pain, no palpitations, no edema. Gastrointestinal: no nausea, no vomiting, no diarrhea, Musculoskeletal: no back pain, no trauma. Neurologic: no headache, no dizziness, no numbness, no weakness. Psychiatric: no sleeping problems, no irritability, yes mood swings/depression. Physical Exam Vitals & Measurements HR: 70(Peripheral) BP: 138/84 SpO2: 99% HT: 62 in HT: 158 cm WT: 87.5 kg WT: 192.5 lb BMI: 35.05 General: Well developed, well nourished, in no acute distress Head: Normocephalic/atraum atic Eyes: Pupils equal, round, and reactive to light. Sclerae normal, and extraocular movements intact Lungs: Normal respiratory effort and clear to auscultation Cardio: Regular rate and rhythm, normal S1 and S2, no murmur, no rub Musculoskeletal: No deformity or scoliosis noted. Normal range of motion. Joints normal. No erythema, edema, effusion, or ecchymosis Extremity: No clubbing, cyanosis, edema, or deformity, with normal ROM in both upper and lower bilateral extremities Neurologic: Grossly normal Skin: No rash, petechiae, suspicious lesions, dysmorphic nail of the left thumb, no sign of onychomycosis or paronychia Mental Status: Alert and oriented x3. Normal mood and affect Assessment/Plan 1. Preprocedural examination (Z01.818: Encounter for other preprocedural examination) Due to the anomalies seen in the EKG, namely the evidence of incomplete RBBB as well as the evidence of prior old NE in the inferolateral leads, I would recommend a stress test prior to proceeding with surgery planned by Dr. Smith. Will order for her today, will let urology know to reschedule her procedure. 2. Abnormal EKG (R94.31: Abnormal electrocardiogram [ECG] [EKG]) iRBBB with QRS widening and inversion of T waves in leads V1/V2, as well as pronounced R waves in inferolateral leads are concerning for old NE in these leads. Recommend stress test, order today as above. Ordered: ECG Stress Exercise 3. Obstructive sleep apnea, adult (G47.33: Obstructive sleep apnea (adult) (pediatric)) Patient continues to use CPAP nightly, and continues to gain benefit from use. Recommended patient continue with nightly use to retain benefit. Recommend patient continue to receive all supplies necessary for patient's good functioning and maintenance of CPAP machine. 4. Obesity (E66.9: Obesity, unspecified) The standard range for ages 18 and older is >=18.5 and < 25 kg/m2. Your BMI today was above this range, this falls in the overweight to obese category and there are medical benefits to weight loss. We can offer counselling, referral, and/or medical support in addressing this problem. Your BMI and weight management will be followed at subsequent visits. 5. Hyperlipidemia (E78.5: Hyperlipidemia, unspecified) Due for lab recheck, discussed today. Not directly contributory to surgical risk. 6. Impaired fasting glucose (R73.01: Impaired f (more content not included)... Normal [facility] Comment on above: Result Comment: Elec tronically Signed By: Marty Vargas DO.br\Date and Time Signed: 01/30/24 12:23 EDT Calculus Analysison 01-29-20 24 Calcium oxalate dihydrate Infrared spectroscopy (Stone) [Mass fraction] 20 % Invalid Interpretation Code [facility] Comment on above: Performed By: #### 1 [id number] #### [facility] [address] [facility] [place] [address] Calcium oxalate monohydrate (Stone) [Mass fraction] 80 % Invalid Interpretation Code [facility] Comment on above: Performed By: #### 1 [id number] #### [facility] [address] [place] [address] Color (Stone) Brown Invalid Interpretation Code [facility] Comment on above: Performed By: #### 1 [id number] #### [facility] [address] [place] [address] Composition Comment Invalid Interpretation Code [facility] Comment on above: Result Comment: Perc entage (Represents the % composition) Performed By: #### 1 [id number] #### [facility] [address] [place] [address] Disclaimer: Comment Invalid Interpretation Code [facility] Comment on above: Result Comment: This test was developed and its performance characteristics determined by [facility]. It has not been cleared or approved by the Food and Drug Administration. Performed at: [address] [id number] PhD Ida Bernstein Performed By: #### 1 [id number] #### [facility] [address] [place] [address] Laboratory comment Lee (Report) Comment Invalid Interpretation Code [facility] Comment on above: Result Comment: Phys magdielan questions regarding Calculi Analysis [facility] at: [phone]. Performed By: #### 1 [id number] #### [facility] [address] [place] [id number] Please Note: Comment Invalid Interpretation Code [facility] Comment on above: Result Comment: Calc nestor report will follow via computer, mail or check embosser delivery. Performed By: #### 1 [id number] #### [facility] [address] [place] [address] Size (Stone) [Entitic vol] 2x2 Invalid Interpretation Code [facility] Comment on above: Result Comment: Mult iple pieces received. Dimensions of the largest piece reported. Performed By: #### 1 [id number] #### [facility] [address] [place] [address] Specimen source subject Nom Kidney Invalid Interpretation Code [facility] Comment on above: Performed By: #### 1 [id number] #### [facility] [address] [place] [address] Stone Photo Comment Invalid Interpretation Code [facility] Comment on above: Result Comment: Phot ograph will follow under a separate cover Performed By: #### 1 [id number] #### [facility] [address] [place] [address] Weight (Stone) 20 mg Invalid Interpretation Code [facility] Comment on above: Performed By: #### 1 [id number] #### [facility] [address] [place] [address] XR Abdomen 1 Viewon 01-21-20 24 XR Abdomen 1 View Exam Date/Time: 01/17/2024 12:06 EDT Reason for Exam: kidney stone;Kidney stone Report IMPRESSION: 6 MM LEFT RENAL CALCULUS. EXAMINATION: XR Abdomen 1 View HISTORY: Kidney stones TECHNIQUE: Frontal view of the abdomen and pelvis COMPARISON: CT 12/27/2023 FINDINGS: A 6 mm calcification projects over the inferior pole of the left kidney. No calcifications identified over the right renal shadow or expected course of the left ureter. Pelvic phleboliths are again identified. Nonobstructive bowel gas pattern. No evidence of free air. No acute osseous abnormality. Ordering Provider: Marlin Smith FINAL REPORT Dictated: 01/21/2024 3:05 pm Terry Khan DO Signed (Electronic Signature): 01/21/2024 3:05 pm Signed by: Terry Khan DO Transcribed by: EBEN Technologist: FARHEEN Technical Comments Radiation Dose: Ka,r in mGy = na DAP = na Normal [facility] Ambulatory Visit Summaryon 0 01-20-2024 Ambulatory Visit Summary Ambulatory Visit Summary SHEA PROCTOR :1960 Visit Date:01/20/2024 Ambulatory Visit Instructions Your Diagnosis Obstruction of left ureteropelvic junction (UPJ) due to stone Kidney stones Your Care Team Attending Physician - Marlin Smith MD Primary Care Physician - Marty Vargas DO This Is Your Medications List tamsulosin (Flomax 0.4 mg Cap) Contact prescribing physician if questions or concerns omega-3 polyunsaturated fatty acids (Fish Oil) ondansetron (Zofran ODT 4 mg Tab-Dis) polyethylene glycol 3350 (MiraLax) sertraline (sertraline 100 mg Tab) Procedures Performed Release of tendon (04/13/2020), Abdominal hysterectomy, Appendectomy, C SECTION X2, Carpal tunnel release, Colonoscopy, D&C - Dilatation and curettage, Laparoscopic cholecystectomy. Discharge Vitals Heart Rate (Peripheral) 90 Respiratory Rate 19 Blood Pressure 151/88 Height 159 cm Height 63 in Weight 84 kg Weight 184.8 lb BMI 33.23 What to do next Scheduled Follow-Up Appointments Saturday 11:00 AM EDT Where: [facility] [address] [place] [address]- You Need to Schedule the Following Appointments Follow Up with Luis DOLL, Marlin Ellison, MINNIE, [facility] When: Where: [phone] Follow Up with Marlin Smith MD, URL, [facility] When: Where: Medications What How Much When Instructions Unchanged tamsulosin (Flomax 0.4 mg Cap) 1 Capsules By Mouth Every day Pickup at [facility] Unchanged omega-3 polyunsaturated fatty acids (Fish Oil) Contact prescribing physician if questions or concerns Unchanged ondansetron (Zofran ODT 4 mg Tab-Dis) 1 Tablets By Mouth 3 times a day Contact prescribing physician if questions or concerns Unchanged polyethylene glycol 3350 (MiraLax) Contact prescribing physician if questions or concerns Unchanged sertraline (sertraline 100 mg Tab) 0.5 Tablets By Mouth Every day Contact prescribing physician if questions or concerns Pharmacy Information [facility]: [address] [place], [place] [id number] [phone] Allergies Tape (Blister) Problems Ongoing - Any problem that you are currently receiving treatment for. Arthritis CTS - Carpal tunnel syndrome Dystrophic nail Elevated blood pressure reading Family history of colon cancer History of colon polyps History of nephrolithiasis Hyperlipidemia Impaired fasting glucose Kidney stones MDD (major depressive disorder), recurrent episode, mild Obesity Obstruction of left ureteropelvic junction (UPJ) due to stone Obstructive sleep apnea, adult Restless leg syndrome Stress incontinence Historical - Any problem that you are no longer receiving treatment for. Abnormal weight gain Achilles tendonitis Acute bacterial sinusitis Adult BMI 33.0-33.9 kg/sq m Adult BMI 35.0-35.9 kg/sq m BMI 35.0-35.9,adult Chronic depression Diverticulitis Flank pain Gallstones Screening for diabetes mellitus Screening, lipid Vaginitis Patient Survey You may receive a survey via text or e-mail asking about your office visit. Please share your experience with us by completing your survey. We appreciate your feedback and thank you for choosing us for your care. Education Materials Kidney Stones Kidney stones are rock-like masses that form inside of the kidneys. Kidneys are organs that make pee (urine). A kidney stone may move into other parts of the urinary tract, including: ? The tubes that connect the kidneys to the bladder (ureters). ? The bladder. ? The tube that carries urine out of the body (urethra). Kidney stones can cause very bad pain and can block the flow of pee. The stone usually leaves your body through your pee. A doctor may need to take out the stone. What are the causes? Kidney stones may be caused by: ? Too much calcium in the body. This may be caused by too much parathyroid hormone in the blood. ? Uric acid crystals in the bladder. The body makes uric acid when you eat certain foods. ? Narrowing of one or both of the ureters. ? A kidney blockage that you were born with. ? Past surgery on the kidney or the ureters. What increases the risk? You are more likely to develop this condition if: ? You have had a kidney stone in the past. ? Other people in your family have had kidney stones. ? You do not drink enough water. ? You eat a diet that is high in protein, salt (sodium), or sugar. ? You are very overweight (obese). What are the signs or symptoms? Symptoms of a kidney stone may include: ? Pain in the side of the belly, right below the ribs. Pain usually spreads to the groin. ? Needing to pee often or right away. ? Pain when peeing. ? Blood in your pee. ? Feeling like you may vomit (nauseous). ? Vomiting. ? Fever and chills. How is this treated? Treatment depends on the size, (more content not included)... Normal [facility] Urology Office/Clinic Noteon 01-20-2024 Urology Office/Clinic Note Urology Office/Clinic Note Chief Complaint ER F/U HPI Staff 64 yo female here for [facility] ER f/up. Last seen by Alphonse Alas 06/14/22. Previous dx: kidney stone. CT AP w con 05/07/23 [facility] - 5 mm calculus LLP. No hydro. KUB 01/17/24 Pt presented to [facility] ER 12/27/[address] AP wo con 12/27/23. Labs ~Cr 0.9, eGFR 71 UA ~RBC >75 Dysuria: no Incomplete bladder emptying: no Hematuria: no Frequency: 1-2 hours Urgency: mild Nocturia: 2x's Stream: good stream Post void dripping: no Wearing pads/ Depends: no Urge incontinence: rarely Stress incontinence: occasionally Incontinence without Sensory Awareness: no Abdominal pain: yes Flank pain: no History of Present Illness Tests Reviewed: Reviewed UA, external records: CT, Labs, UA, ER records I have reviewed the previous health record information and history for this patient from Alphonse Alas, ER Notes I have reviewed and verified the staff HPI to be accurate for this encounter. There have been no associated fever, chills, flank pain, or blood in the urine. Denies any urinary infections since last encounter. Review of Systems PHQ Score Initial Depression Screen Score: 0 SCORE ROS - Provider Constitutional: denies weight loss, denies hot flashes. Eyes: denies eye problems. Gastrointestinal: denies nausea, denies vomiting. Cardiovascular: denies chest pain or angina. Integumentary: no dryness Musculoskeletal: denies musculoskeletal symptoms. ENMT: denies otolaryngeal symptoms. Respiratory: no shortness of breath. Heme/Lymph: denies easy bleeding tendency, denies easy bruising tendency. Psychiatric: no confusion, no anxiety. Genitourinary: See HPI. Physical Exam Vitals & Measurements HR: 90(Peripheral) RR: 19 BP: 151/88 HT: 63 in HT: 159 cm WT: 84 kg WT: 184.8 lb BMI: 33.23 General Appearance: alert , no acute distress, well nourished, well developed female. Genitourinary: bladder nonpalpable, moderate flank pain. Assessment/Plan 64 yo female with history of stones previously treated by Dr. Madrigal here for recent ER visit 5 mm L UPJ stone 1. Obstruction of left ureteropelvic junction (UPJ) due to stone (N20.1: Calculus of ureter) CT AP wo con 12/27/23 - mild-mod L pelvocaliectasis with 1.3 mm calculus lower pole, 5 mm calculus at left UPJ. Labs ~Cr 0.9, eGFR 71 UA ~RBC >75 KUB 01/17/24 [place] [facility] [place], on review stone still present Discussed management options including medical expulsive therapy x 4-6 week vs intervention including extracorporeal shockwave lithotripsy vs ureteroscopy with laser lithotripsy/stone basket extraction possible stent. Risks/benefits of each were discussed including but not limited to: MET- renal damage, pain or infection; ESWL- bleeding, hematoma, pain, infection, inability to break up the stone, ureteral obstruction, cardiac arrhythmias, damage to surrounding structures and need for additional procedures; ureteroscopy - bleeding, pain, infection, damage to surrounding structures, ureteral perforation, stricture, inability to treat the stone and need for additional procedures. If a stent is placed, pt understands this is not permanent and needs to be removed or exchanged within 3 months to prevent encrustation, infection, permanent renal damage and need for more invasive procedures. -Pt elected to proceed with scheduling Left ureteroscopy, Laser Litho/stone extraction, stent placement. The procedural risks, benefits, details, and treatment alternatives have been discussed with the patient. These include bleeding, infection, inability to break or retrieve all of the stone, injury to the ureter (the tube which connects the kidney to the bladder), injury to the kidney scarring of the ureter, and need for repeat procedures, among others. Full informed consent has been obtained. Will order General anesthesia. -Flomax sent to pharmacy today, pt with intermittent LLQ pain -Fluids, bowel regimen due to constipation which can be contributing to pain 2. Kidney stones (N20.0: Calculus of kidney) Patient does have a hx of kidney stones S/P left ESWL 11/09/21 Complaining today of intermittent lower left abdominal pain CT AP w con 05/07/23 [facility] - 5 mm calculus LLP. No hydro. Pt presented to [facility] ER 12/27/[address] AP wo con 12/27/23 - mild-mod L pelvocaliectasis with 1.3 mm calculus lower pole 5 mm calculus at left UPJ. Labs ~Cr 0.9, eGFR 71 UA ~RBC >75 KUB 01/17/24 [place] [facility] [place] stone unchanged from CT scan. We discussed the etiology of kidney stone formation, including genetic predisposition, dietary factors, and different metabolism in patients. We discussed management options moving forward including general dietary modifications, metabolic stone work-up including serum labs and 24-hour urine analysis. -Pt opted for dietary changes including increase fluids Ordered: Urnls Dip Stick Auto w/o Microscopy POC 12651 Urology Procedure Order Orders: tamsulosin, 0.4 (more content not included)... Normal [facility] Comment on above: Result Comment: Elec tronically Signed By: Luis DOLL, Marlin Ellison\.br\Date and Time Signed: 01/20/24 13:54 EDT\.br\Electronically Co-Signed By: Chelle Hester MA\.br\Date and Time Co-Signed: 01/20/24 13:43 EDT MM screening mammo BI w/CADo n 01-03-2024 MM screening mammo BI w/CAD [facility] [place] [address] Mammography Report Signed Patient: Shea Proctor MR#: [id number] : 1960 Acct:[id number] Age/Sex: 63 / F ADM Date: 01/03/24 Loc: [place] Room: Type: [facility] Attending Dr: Referral Self Copies to: Marty Vargas DO SELF,REFERRAL Ordering Provider: SELF,REFERRAL Date of Service: 01/03/24 MM/MM screening mammo BI w/CAD: SCREENING CLINICAL DATA: Screening for malignancy. SCREENING MAMMOGRAM - FULL FIELD DIGITAL WITH TOMOSYNTHESIS AND CAD COMPARISON:Mammogram s dating back to 2019 Tomosynthesis craniocaudal and mediolateral oblique views of both breasts were obtained using low- dose digital technique. This examination was reviewed with the aid of CAD. FINDINGS: The breast tissue is composed of scattered fibroglandular densities. There are no dominant masses, typically malignant calcifications or architectural distortion. There has been no significant interval change. MM/MM screening mammo BI w/CAD IMPRESSION: NO MAMMOGRAPHIC EVIDENCE OF MALIGNANCY. ROUTINE FOLLOW-UP IS RECOMMENDED IN ONE YEAR. RESULT CODE: 1 Negative DENSITY CODE: 2 (approximately 25-50% glandular) FOLLOW UP: 1YR The false-negative rate of mammography is approximately 10-percent. Management of a palpable abnormality must be based on clinical grounds. Patient was entered into a reminder system with a target due date for the next mammogram. Impression dictated by: Dusty Stacy Jr., D.OTrevor01/03/2024 3:03 PM Dictation Location: DW01 Transcribed By: ISA 01/03/24 1503 Dictated By: Dusty Stacy Jr, DO 01/03/24 1502 Signed By: 01/03/24 1503 Normal [facility] ED Note-Physicianon 12-28-19 ED Note-Physician ED Note-Physician Basic Information Time Seen: Silas PEARLSharif 12/27/2023 11:06 Chief Complaint L flank pain with frequency. hx kidney stones. denies hematuria. denies N/V, fevers. c/o chills. History of Present Illness 63-year-old female comes into the ED for evaluation of flank pain. She awoke with left-sided flank pain today. She has a history of kidney stones and is concerned for the same. She had some nausea but no vomiting. No fever or chills. No difficulty urinating or hematuria. Pain does radiate around to the left side of her abdomen. No prior treatments. Review of Systems A 10 point review of systems is negative except as noted above. Medical and Surgical History: Reviewed and noted Social history: Lives at home Tobacco: Denies Physical Exam Vitals & Measurements T: 36.6 ?C(Oral) HR: 75(Monitored) RR: 17 BP: 138/77 SpO2: 96% HT: 159 cm WT: 84 kg BMI: 33.23 Nurses notes and vital signs reviewed and patient is not hypoxic. General: Patient appears uncomfortable Skin: Warm, dry. Head: Atraumatic. Neck: No JVD. Eye: Normal conjunctiva. Ears, Nose, Mouth, and Throat: Moist mucous membranes. Cardiovascular: Strong distal pulses. Chest wall: Respiratory: Respirations are nonlabored. Back: Normal range of motion. Left CVA tenderness Musculoskeletal: Normal ROM with no gross deformity. Gastrointestinal: Soft and nontender Urological: Neurological: Awake and alert. No focal deficits. Follows commands. Psychiatric: Cooperative. Medical Decision Making Patient comes in for left flank tenderness with a history of kidney stones. Laboratory studies are reviewed and noted. No leukocytosis, renal function is preserved. Urinalysis does show hematuria without infection. CT scan reviewed by the radiologist. There is a 5 mm calculus. Results are discussed with patient. She feels much improved after IV fluids and pain medications. She is discharged home Percocet, Flomax, Zofran, provided with a urine strainer and given urology follow-up. Patient was encouraged to return to the ED if symptoms worsen or change. Assessment/Plan Kidney stones (N20.0: Calculus of kidney) Ordered: acetaminophen-oxycod one, 1 tab(s), Oral, q6hr as needed for pain for 3 day(s), 15 tab(s), Refill(s) 0, [facility], 159, cm, 12/27/23 10:55:00 EDT, Height/Length Dosing, 84, kg, 12/27/23 10:55:00 EDT, Weight Dosing Orders: morphine, 4 mg = 1 mL, Injection, IV Push, Once, Stop date 12/27/23 11:16:00 EDT, STAT, Start date 12/27/23 11:16:00 EDT, 12/27/23 11:16:00 EDT ondansetron, 4 mg = 2 mL, Injection, IV Push, Once, Stop date 12/27/23 11:16:00 EDT, STAT, Start date 12/27/23 11:16:00 EDT, 12/27/23 11:16:00 EDT ondansetron, 4 mg = 1 tab(s), Oral, TID, # 15 tab(s), Refills(s) 0, Pharmacy: [facility], 159, cm, 12/27/23 10:55:00 EDT, Height/Length Dosing, 84, kg, 12/27/23 10:55:00 EDT, Weight Dosing Sodium Chloride 0.9% intravenous solution, 1,000 mL, Soln-IV, IV, Once, Stop date 12/27/23 11:16:00 EDT, STAT, Start date 12/27/23 11:16:00 EDT, Infuse over 61, minute(s) tamsulosin, 0.4 mg = 1 cap(s), Oral, Daily, # 10 cap(s), Refills(s) 0, Pharmacy: [facility], 159, cm, 12/27/23 10:55:00 EDT, Height/Length Dosing, 84, kg, 12/27/23 10:55:00 EDT, Weight Dosing CT Abdomen/Pelvis w/o Contrast Urine Strainer to go Medications Administered Given morphine 4 mg/mL Inj, 4 mg, IV Push NS 1000 ml Bolus, 1000 mL, IV ondansetron 4 mg/2 mL Inj, 4 mg, IV Push Disposition Plan Patient Discharge Condition Disposition: Discharged home Condition: Improved and stable Counseled: Patient and/or family were counseled to workup, results, treatment plan and follow-up recommendations Discharge Prescription List Prescriptions Flomax 0.4 mg Cap, 0.4 mg= 1 cap(s), Oral, Daily Percocet 5 mg-325 mg oral tablet, 1 tab(s), Oral, q6hr, PRN Zofran ODT 4 mg Tab-Dis, 4 mg= 1 tab(s), Oral, TID Follow-up With When Contact Information Sohail RICHEY In 3 days 12/30/[address] [place] [phone] Business (1) Additional Instructions: Patient Education Kidney Stones Attestation I performed a substantive part of the MDM during the patient?s E/M visit. I personally made or approved the documented management plan and acknowledge its risk of complications. (Independent Interpretation) My (EKG/X-Ray/US/CT) interpretation as above. (Discussion) Management/test interpretation discussed with APC. This report was transcribed using voice recognition software. Every effort was made to ensure accuracy, however, inadvertently computerized can line examiner mistakes may be present. Appropriate healthcare PPE was used in evaluating this patient. Problem List/Past Medical History Ongoing Arthritis CTS - Carpal tunnel syndrome Dystrophic nail Elevated blood pressure reading Family history of colon cancer History of colon polyps History of nephrolithiasis (more content not included)... Normal [facility] Comment on above: Result Comment: Elec tronically Signed By: Sharif Rosen PA-C\.br\Date and Time Signed: 12/27/23 15:21 EDT\.br\Electronically Co-Signed By: Parag Toscano M.D.\.br\Date and Time Co-Signed: 12/28/23 07:15 EDT CHEMISTRYOrdered By: SYSTEM SYSTEM on 12-27-2023 Albumin [Mass/Vol] 4.3 g/dL Normal 3.3 - 5.0 gm/dL R emisol Chem Albumin/Globulin [Mass ratio] 1.5 {ratio} Normal 1.1 - 2.2 Remisol Chem ALP [Catalytic activity/Vol] 90 [iU]/d Normal 21 - 98 Int._Unit/L Remisol Chem ALT No additional P-5'-P [Catalytic activity/Vol] 17 [iU]/d Normal 6 - 46 Int._Unit/L Remisol Chem Anion gap [Moles/Vol] 12 mmol/L Normal 6 - 16 mEq/L Remisol Chem AST [Catalytic activity/Vol] 17 [iU]/d Normal 5 - 43 Int._Unit/L Remisol Chem Bilirubin [Mass/Vol] 0.4 mg/dL Normal 0.0 - 1.1 mg/dL Remisol Chem Bilirubin.direct [Mass/Vol] 0.1 mg/dL Normal 0.0 - 0.4 mg/dL Remisol Chem Bilirubin.indirect [Mass or moles/Vol] 0.3 mg/dL Normal 0.1 - 0.9 mg/dL Remisol Chem Calcium [Mass/Vol] 9.4 mg/dL Normal 8.9 - 11.1 mg/dL Remisol Chem Chloride [Moles/Vol] 105 mmol/L Normal 101 - 111 mmol/ L Remisol Chem CO2 [Moles/Vol] 28 mmol/L Normal 21 - 31 mmol/L Remis ol Chem Creatinine [Mass/Vol] 0.9 mg/dL Normal 0.5 - 1.3 mg/dL Remisol Chem eGFR 71 mL/min/1.73 m2 Normal >=59mL/min /1.73 m2 Remisol Chem Globulin (S) [Mass/Vol] 2.9 g/dL Normal 1.4 - 4.0 gm/dL Remisol Chem Glucose [Mass/Vol] 117 mg/dL Normal 55 - 199 mg/dL Re misol Chem Lipase [Catalytic activity/Vol] 11 U/L Low 13 - 58 unit/L Remisol Chem Potassium [Moles/Vol] 4.5 mmol/L Normal 3.5 - 5.3 mmol/L Remisol Chem Protein [Mass/Vol] 7.2 g/dL Normal 6.0 - 7.8 gm/dL R emisol Chem Sodium [Moles/Vol] 140 mmol/L Normal 135 - 145 mmol/L Remisol Chem Urea nitrogen [Mass/Vol] 13 mg/dL Normal 5 - 21 mg/dL Remisol Chem Urea nitrogen/Creatinine [Mass ratio] 14 mg/mg Normal 10 - 20 Remisol Chem ED Clinical Summaryon 08-30- 2024 ED Clinical Summary ED Clinical Summary [address] [address] ED Clinical Summary Person Information Name: SHEA PROCTOR/[facility]_Patricio Age: 63 Years : 1960 Sex: Female Language: Marshallese PCP: Marty Vargas DO Marital Status: Phone: [phone] Visit Id: Visit Reason: Chills; Flank pain; POSS KIDNEY STONE / FLANK/BACK PAIN Speciality: Acuity: 3 Enc Type: Emergency Med Service: Emergency Arrival: 12/27/2023 10:44:01 Discharge: 12/27/2023 14:16:37 LOS: 000 03:32 Checkin: 12/27/2023 10:44:01 Checkout: 12/27/2023 14:16:37 Dispo Type: Home (Routine DC) EVENTS: Event Name Event Status Request Date/Time Start Date/Time Complete Date/Time Arrive Complete 12/27/2023 10:44:01 12/27/2023 10:44:01 12/27/2023 10:44:01 Document Home Meds Request 12/27/2023 10:44:01 Triage Complete 12/27/2023 10:44:01 12/27/2023 10:55:16 12/27/2023 10:55:16 Registration Complete 12/27/2023 10:46:34 12/27/2023 10:46:34 12/27/2023 10:46:34 Reg Complete Request 12/27/2023 10:46:34 Reg Bed Request Complete 12/27/2023 10:46:34 12/27/2023 10:46:34 12/27/2023 10:46:34 Pending Labs Complete 12/27/2023 10:56:05 12/27/2023 11:14:32 12/27/2023 12:14:12 Lab Complete 12/27/2023 10:56:05 12/27/2023 12:14:12 Bed Assign Complete 12/27/2023 11:04:16 12/27/2023 11:04:16 12/27/2023 11:04:16 Dr Exam Complete 12/27/2023 11:04:16 12/27/2023 11:06:35 12/27/2023 11:06:35 RN Exam Complete 12/27/2023 11:04:16 12/27/2023 11:37:40 12/27/2023 11:37:40 Registration Request 12/27/2023 11:06:35 Dr Exam Complete 12/27/2023 11:08:27 12/27/2023 11:08:27 12/27/2023 11:08:27 CT Complete 12/27/2023 11:16:50 12/27/2023 11:40:10 12/27/2023 11:54:31 Meds Admin Complete 12/27/2023 11:16:50 12/27/2023 11:31:49 Pending Labs Complete 12/27/2023 11:45:58 12/27/2023 11:45:58 12/27/2023 12:14:12 Lab Complete 12/27/2023 11:45:58 12/27/2023 11:45:58 12/27/2023 12:14:12 Discharge Complete 12/27/2023 13:29:18 12/27/2023 14:16:44 12/27/2023 14:16:44 Patient Care Complete 12/27/2023 13:32:34 12/27/2023 13:52:35 Transfer Complete 12/27/2023 14:16:44 12/27/2023 14:16:44 12/27/2023 14:16:44 ADDRESS: [facility] [phone] PHYS DOC NOTES: MEDICAL INFORMATION: Prescriptions Given: New Medications [facility], [address] [place] [place], [place] [phone], [phone] acetaminophen-oxycod one (Percocet 5 mg-325 mg oral tablet) 1 Tablets By Mouth every 6 hours as needed as needed for pain for 3 Days. Refills: 0. ondansetron (Zofran ODT 4 mg Tab-Dis) 1 Tablets By Mouth 3 times a day. Refills: 0. tamsulosin (Flomax 0.4 mg Cap) 1 Capsules By Mouth every day. Refills: 0. Medications to Continue with No Changes Other Medications omega-3 polyunsaturated fatty acids (Fish Oil) polyethylene glycol 3350 (MiraLax) sertraline (sertraline 100 mg Tab) 0.5 Tablets By Mouth every day. Refills: 1. PATIENT EDUCATION INFORMATION: Instructions: Kidney Stones Follow up: With: Address: When: [address], [address], [address] [address] Business (1) In 3 days 12/30/2023 DIAGNOSIS: Kidney stones Normal [facility] ED Patient Summaryon 024 ED Patient Summary ED Patient Summary [address] [address] Patient Discharge Instructions Person Information Name: SHEA PROCTOR Age: 63 Years Arrival Date: 12/27/2023 10:44:01 Discharge Diagnosis: Kidney stones Primary Care Physician: Marty Vargas DO Provider Information Primary Provider: Parag Toscano M.D. Advanced Shrimp Picker:Sharif Rosen PA-C The exam and treatment you received in the Emergency Department were for an urgent problem and are not intended as complete care. It is important that you follow up with a doctor, nurse practitioner, or physician?s hotel assistant manager for ongoing care. If your symptoms become worse or you do not improve as expected and you are unable to reach your usual health care provider, you should return to the Emergency Department. We are available 24 hours a day. SHEA PROCTOR has been given the following list of patient education materials, prescriptions and follow-up instructions: Follow-up Instructions: With: Address: When: [address] [employer] [employer], [address], [address] [address] [employer] (1) In 3 days 12/30/2023 In the event that this physician does not participate in your insurance network, please consult with your insurance company to find a nearby participating provider. Patient Education Materials: Kidney Stones A MESSAGE TO ALL PATIENTS REGARDING OPIOIDS PRESCRIPTION OPIOIDS: WHAT YOU NEED TO KNOW Prescription opioids can be used to help relieve bqkrrbkx-ha-vuuguc pain and are often prescribed following a surgery or injury, or for certain health conditions. These medications can be an important part of the treatment but also come with serious risks. It is important to work with your healthcare provider to make sure you are getting the safest, most effective care. WHAT ARE THE RISKS AND SIDE EFFECTS OF OPIOID USE? Prescription opioids carry serious risks of addiction and overdose, especially with prolonged use. An opioid overdose, often marked by slowed breathing, can cause sudden . The use of prescription opioids can have a number of side effects as well, even when taken as directed: ? Tolerance?meaning you might need to take more of the medication for the same pain relief ? Physical dependence?meaning you have symptoms of withdrawal when a medication is stopped ? Increased sensitivity to pain ? Constipation ? Nausea, vomiting, and dry mouth ? Sleepiness and dizziness ? Confusion ? Depression ? Low levels of testosterone that can result in lower sex drive, energy, and strength ? Itching and sweating RISKS ARE GREATER WITH: ? History of drug misuse, substance use disorder, or overdose ? Mental health conditions (such as depression or anxiety) ? Sleep apnea ? Older age (65 years and older) ? Avoid alcohol while taking prescription opioids. Also, unless specifically advised by your health care provider, medications to avoid include: ? Benzodiazepines (such as Xanax or Valium) ? Muscle relaxants (such as Soma or Flexeril) ? Hypnotics (such as Ambien or Lunesta) ? Other prescription opioids KNOW YOUR OPTIONS Talk to your health care provider about ways to manage your pain that don?t involve prescription opioids. Some of these options may actually work better and have fewer risks and side effects. Options may include: ? Pain relievers such as acetaminophen, ibuprofen, and naproxen ? Some medication that are also used for depression or seizures ? Physical therapy and exercise ? Cognitive behavioral therapy, a psychological, goal-directed approach, in which patients learn how to modify physical, behavioral, and emotional triggers of pain and stress. IF YOU ARE PRESCRIBED OPIOIDS FOR PAIN: ? Never take opioids in greater amounts or more often than prescribed. ? Follow up with your primary health care provider. o Work together to create a plan on how to manage your pain. o Talk about ways to help manage your pain that don?t involve prescription opioids. o Talk about any and all concerns and side effects. ? Help prevent misuse and abuse o Never sell or share prescription opioids. o Never use another person?s prescription opioids. ? Store prescription opioids in a secure place and out of reach of others (this may include visitors, children, friends, and family). ? Safely dispose of unused prescription opioids: Find your community drug take-back program or your pharmacy mail-back program, or flush them down the toilet, following guidance from the Food and Drug Administration (www.fda.gov/Drugs/R esourcesForYou). ? Visit www.cdc.gov/drugover dose to learn about the risks of opioids abuse and overdose. ? If you believe you may be struggling with addiction, tell your health aged or disabled care worker and ask for guidance or call [facility]S National Helpline at 1-80 (more content not included)... Normal [facility] HEMATOLOGYOrdered By: SYSTEM SYSTEM on 12-27-2023 Basophils/100 WBC (Bld) 0.4 % Normal 0.0 - 2.0 % Remisol Heme Basophils/Leukocytes Auto (Bld) [Pure # fraction] 0.0 E9/L Normal 0.0 - 0.2 E9/L Remisol Heme Eosinophils (Bld) [#/Vol] 0.5 E9/L Normal 0.0 - 0.5 E9/L Remisol Heme Eosinophils/100 WBC (Bld) 5.2 % Normal 0.0 - 8.0 % Remisol Heme Erythrocyte distribution width (RBC) [Ratio] 14.4 % High 10.9 - 14.2 % Remisol Heme Hematocrit (Bld) [Volume fraction] 41.1 % Normal 34.0 - 46.0 % Remisol Heme Hemoglobin (Bld) [Mass/Vol] 13.6 g/dL Normal 12.0 - 16.0 gm/dL Remisol Heme Lymphocytes (Bld) [#/Vol] 3.2 E9/L Normal 1.0 - 4.0 E9/L Remisol Heme Lymphocytes/100 WBC (Bld) 33.7 % Normal 14.0 - 50.0 % Remisol Heme MCH (RBC) [Entitic mass] 28.5 pg Normal 27.0 - 34.0 pg Remisol Heme MCHC (RBC) [Mass/Vol] 33.0 g/dL Normal 31.4 - 36.0 gm/dL Remisol Heme MCV (RBC) [Entitic vol] 86.3 fL Normal 80.0 - 100.0 fL Remisol Heme Monocytes (Bld) [#/Vol] 0.7 E9/L Normal 0.2 - 1.0 E9/L Remisol Heme Monocytes/100 WBC (Bld) 7.2 % Normal 4.0 - 14.0 % Remisol Heme Neutrophils (Bld) [#/Vol] 5.1 E9/L Normal 2.0 - 7.5 E9/L Remisol Heme Neutrophils/100 WBC (Bld) 53.5 % Normal 36.0 - 75.0 % Remisol Heme Platelet mean volume (Bld) [Entitic vol] 7.7 fL Normal 6.4 - 10.8 fL Remisol Heme Platelets (Bld) [#/Vol] 313.0 E9/L Normal 150.0 - 500.0 E9/L Remisol Heme RBC (Bld) [#/Vol] 4.8 E12/L Normal 4.3 - 5.9 E12/L Re misol Heme WBC corrected for nucl RBC Auto (Bld) [#/Vol] 9.5 E9/L Normal 4.0 - 11.0 E9/L Remisol Heme URINALYSISOrdered By: SYSTEM SYSTEM on 12-27-2023 Bacteria Auto Ql (U) Trace /HPF Normal Trace/HPF [facility] UA Auto SS Bilirubin Ql (U) Negative Normal Negativemg/dL [facility] UA Auto SS Clarity (U) Clear (12/27/23 10:58 AM) Normal Clear [facility] UA Auto SS Color (U) Light-Yellow 1 (12/27/23 10:58 AM) Normal Yellow [facility] UA Auto SS Comment on above: Interpretive Data: M icroscopic readings are only performed on those samples that meet specific criteria set forth by [facility]. Epithelial cells.squamous Auto (Urine sed) [#/Area] 0-2 graded/HPF Invalid Interpretation Code [facility] UA Auto SS Glucose Ql (U) Negative Normal Negativemg/dL [facility] Auto SS Hemoglobin Auto test strip (U) [Mass/Vol] 3+ mg/dL Invalid Interpretation Code Negativemg/dL [facility]A Auto SS Ketones Auto test strip Ql (U) Negative Normal Negativemg/dL [facility] UA Auto SS Leukocyte esterase Auto test strip Ql (U) Negative Normal NegativeLeu/uL [facility] UA Auto SS Mucus Auto Ql (U) Trace graded/LPF Normal Negati vegraded/LP F [facility] Auto SS Nitrite Auto test strip Ql (U) Negative Normal Negativemg/dL [facility] UA Auto SS pH (U) 6.0 *NA* (12/27/23 10:58 AM) Invalid Interpretation Code 5.0 - 9.0 [facility] UA Auto SS Protein Ql (U) Trace mg/dL Invalid Interpretation Code Negativemg/dL [facility] UA Auto SS RBC Ql (U) >75 graded/HPF Invalid Interpretation Code 0-3graded/HPF [facility] UA Auto SS Specific gravity (U) [Rel density] 1.016 *NA* (12/27/23 10:58 AM) Invalid Interpretation Code 1.005 - 1.030 [facility] UA Auto SS Urobilinogen (U) [Mass/Vol] Negative Normal Negativemg/dL [facility] UA Auto SS WBC Auto (Urine sed) [#/Area] 0-5 graded/HPF Normal 0-5graded/HPF [facility] UA Auto SS URINALYSISOrdered By: Kristi Dean on 12-27-2023 UA Spec Desc Clean Catch (12/27/23 10:58 AM) Normal [facility] UA Auto SS eGFRon 12-27-2023 eGFR 71 mL/min/1.73 m2 Normal >=59 [facility] Comment on above: Order Comment: Order added by Discern Expert. Performed By: #### [id number] #### [facility] [address] [place] [address] Ambulatory Visit Summaryon 0 09-10-2023 Ambulatory Visit Summary SHEA PROCTOR :1960 Visit Date:09/10/2023 Ambulatory Visit Instructions Your Diagnosis MDD (major depressive disorder), recurrent episode, mild Elevated blood pressure reading BMI 35.0-35.9,adult Non-smoker Your Care Team Attending Physician - Marty Vargas DO Primary Care Physician - Marty Vargas DO This Is Your Medications List omega-3 polyunsaturated fatty acids (Fish Oil) polyethylene glycol 3350 (MiraLax) sertraline (sertraline 100 mg Tab) Procedures Performed Release of tendon (04/13/2020), Abdominal hysterectomy, Appendectomy, C SECTION X2, Carpal tunnel release, Colonoscopy, D&C - Dilatation and curettage, Laparoscopic cholecystectomy. Discharge Vitals Heart Rate (Peripheral) 68 Blood Pressure 132/86 Height 158 cm Height 62 in Weight 87.6 kg Weight 192.72 lb BMI 35.09 What to do next Scheduled Follow-Up Appointments Saturday 11:40 AM EDT With: Marty Vargas DO Where: [facility] [address] [place] [address]-\.br\ You Need to Schedule the Following Appointments\.br\ Follow Up with Marty Vargas DO, TABITHA When: Within 4 weeks\.br\ Comments:\.br\ 4 WEEKS FOLLOWUP\.br\ Where:\.br\ [address]\.br\ [place] [address]-\.br\ \.br\ Medications\.br\ What How Much When Instructions\.br\ Unchanged omega-3 polyunsaturated fatty acids (Fish Oil)\.br\ Unchanged polyethylene glycol 3350 (MiraLax)\.br\ Unchanged sertraline (sertraline 100 mg Tab) 0.5 Tablets By Mouth Every day\.br\ Medications and Immunizations Administered\.br\ Not Given\.br\ influenza virus vaccine, inactivated, Postpone due to refusal\.br\ Allergies\.br\ Tape (Blister)\.br\ Problems\.br\ Ongoing - Any problem that you are currently receiving treatment for.\.br\ Arthritis\.br\ CTS - Carpal tunnel syndrome\.br\ Dystrophic nail\.br\ Elevated blood pressure reading\.br\ Family history of colon cancer\.br\ History of colon polyps\.br\ History of nephrolithiasis\. br\ Hyperlipidemia\.b r\ Impaired fasting glucose\.br\ MDD (major depressive disorder), recurrent episode, mild\.br\ Obesity\.br\ Obstructive sleep apnea, adult\.br\ Restless leg syndrome\.br\ Stress incontinence\.br\ Historical - Any problem that you are no longer receiving treatment for.\.br\ Abnormal weight gain\.br\ Achilles tendonitis\.br\ Acute bacterial sinusitis\.br\ Adult BMI 33.0-33.9 kg/sq m\.br\ Adult BMI 35.0-35.9 kg/sq m\.br\ BMI 35.0-35.9,adult\. br\ Chronic depression\.br\ Diverticulitis\.b r\ Flank pain\.br\ Gallstones\.br\ Screening for diabetes mellitus\.br\ Screening, lipid\.br\ Vaginitis\.br\ Patient Survey\.br\ You may receive a survey via text or e-mail asking about your office visit. Please share your experience with us by completing your survey. We appreciate your feedback and thank you for choosing us for your care.\.br\ \.br\ [facility] Family Medicine Office/Clini c Noteon 09-10-2023 Family Medicine Office/Clinic Note Chief Complaint 4 week f/u HPI Staff Patient here for 4 week f/u Follow up for Mental Status: At last visit patient inquired about trialing off medication. Sertraline decreased from 100mg to 50mg. Patient notes she is not sure how she is doing. She is having trouble with concentration, she forgot to shut her car off and how to turn the water off. Her appetite has increased as well. noting you've been saying so weird stuff . Suicidal thoughts-Not at this time Most recent SHOAIB: 7 Most recent PHQ9: 4 Follow up for Hyperlipidemia - At last visit noted to recheck lipid panel in 8 weeks, please order. Chol: 279 mg/dL High (02/25/23 08:11:00) HDL: 78 mg/dL (02/25/23 08:11:00) LDL Direct: 187 mg/dL High (02/25/23 08:11:00) Tri mg/dL (02/25/23 08:11:00) VLDL: 28 mg/dL (02/25/23 08:11:00) - Patient is borderline hypertensive. At last visit provider suggested keeping a bp log and bring it to today's appointment. Completed as directed, handed log to provider. Lynnette: 01/08/23 per pt NOMs Dexa: DUE [place]: 06/18/23, due in 2028 Flu: declines AMW: 02/18/24 History of Present Illness Patient presents today for medication followup on changes from last visit. - Reduced sertraline to 50mg after discussion with patient. - Increased fish oil supplement to 2g daily. - Recommended BP logs be done, should bring in today. Today, patient states that she has been talking abnormally to her family. She has been wandering in conversation and has been forgetting basic actions at home. She is unsure if this is related to the reduction in the Zoloft, but began around that time she did reduce the medication. She has BP logs today, and is taking the fish oil supplement 2g daily now. Review of Systems PHQ Score Initial Depression Screen Score: 1 SCORE ROS - Provider Constitutional: no fever, no chills Skin: no rash, no lesions, yes dystrophic nail ENMT: no ear pain, no sore throat, no congestion, no hoarseness. Respiratory: no shortness of breath, no cough, no wheezing. Cardiovascular: no chest pain, no palpitations, no edema. Gastrointestinal: no nausea, no vomiting, no diarrhea, Musculoskeletal: no back pain, no trauma. Neurologic: no headache, no dizziness, no numbness, no weakness. Psychiatric: no sleeping problems, no irritability, yes mood swings/depression. Physical Exam Vitals & Measurements HR: 68(Peripheral) BP: 132/86 SpO2: 98% HT: 62 in HT: 158 cm WT: 87.6 kg WT: 192.72 lb BMI: 35.09 General: Well developed, well nourished, in no acute distress Head: Normocephalic/atraum atic Eyes: Pupils equal, round, and reactive to light. Sclerae normal, and extraocular movements intact Lungs: Normal respiratory effort and clear to auscultation Cardio: Regular rate and rhythm, normal S1 and S2, no murmur, no rub Musculoskeletal: No deformity or scoliosis noted. Normal range of motion. Joints normal. No erythema, edema, effusion, or ecchymosis Extremity: No clubbing, cyanosis, edema, or deformity, with normal ROM in both upper and lower bilateral extremities Neurologic: Grossly normal Skin: No rash, petechiae, suspicious lesions, dysmorphic nail of the left thumb, no sign of onychomycosis or paronychia Mental Status: Alert and oriented x3. Normal mood and affect Assessment/Plan 1. MDD (major depressive disorder), recurrent episode, mild (F33.0: Major depressive disorder, recurrent, mild) Patient has had significant personality and speech changes since reduction in Zoloft. While she has a family history of dementia, this is the most likely variable. As such, I recommended we resume back to 100mg to take this variable out of the evaluation. We will recheck her in 3 weeks, and if this change remains, we will consider further evaluation of personality change. Patient to call with any changes or concerns. 2. Elevated blood pressure reading (R03.0: Elevated blood-pressure reading, without diagnosis of hypertension) BP is controlled on logs, no changes in management. 3. BMI 35.0-35.9,adult (Z68.35: Body mass index [BMI] 35.0-35.9, adult) The standard range for ages 18 and older is >=18.5 and < 25 kg/m2. Your BMI today was above this range, this falls in the overweight to obese category and there are medical benefits to weight loss. We can offer counselling, referral, and/or medical support in addressing this problem. Your BMI and weight management will be followed at subsequent visits. Ordered: Body Mass Index (BMI) documented 3008F Current tobacco non-user 1036F Depression Screening Negative 3352F Influenza immunization status assessed 1030F Most recent diastolic blood pressure 80-89 mm Hg 3079F Patient screen for fall risk: no falls in last year or 1 fall with no injury in last year 1101F Systolic BP 130-139 mm Hg (Most Recent) 3075F 4. Non-smoker (Z78.9: Other specified health status) Stable. Orders: sertraline, 50 mg = 0.5 tab(s), Oral, Daily, # 90 tab(s), Refills(s) 1, Pharmacy: [facility] (more content not included)... Normal [facility] Comment on above: Result Comment: Elec tronically Signed By: Marty Vargas DO\.br\Date and Time Signed: 09/10/23 11:26 EDT Ambulatory Visit Summaryon 0 08-14-2023 Ambulatory Visit Summary SHEA PROCTOR :1960 Visit Date:08/14/2023 Ambulatory Visit Instructions Your Diagnosis Acute bacterial sinusitis BMI 35.0-35.9,adult Other specified bacterial agents as the cause of diseases classified elsewhere Your Care Team Attending Physician - BHAVANI PEARL, TACOMA Primary Care Physician - Link DO, Marty C This Is Your Medications List amoxicillin (amoxicillin 500 mg Cap) Contact prescribing physician if questions or concerns omega-3 polyunsaturated fatty acids (Fish Oil) polyethylene glycol 3350 (MiraLax) sertraline (sertraline 100 mg Tab) Procedures Performed Release of tendon (04/13/2020), Abdominal hysterectomy, Appendectomy, C SECTION X2, Carpal tunnel release, Colonoscopy, D&C - Dilatation and curettage, Laparoscopic cholecystectomy. Discharge Vitals Temperature (Oral) 36.4 ?C Heart Rate (Peripheral) 87 Respiratory Rate 16 Blood Pressure 132/86 Height 158 cm Height 62 in Weight 87.5 kg Weight 192.5 lb BMI 35.05 What to do next Scheduled Follow-Up Appointments Saturday 11:15 AM EDT With: KAITLIN DOLL, Gilberto Jose Where: [facility] Invalid Interpretation Code [address] [place] [address]-\.br\ Saturday 11:00 AM EDT \.br\ With:\.br\ Where: [facility] Family Medicine Office/Clini c Noteon 08-14-2023 Family Medicine Office/Clinic Note Chief Complaint Sinus Congestion, Pressure, Left ear pain HPI Staff Patient is here with C/O Sinus Headache, pressure into teeth, sinus drainage yellow in color Started on Saturday Has tried Mucinex with no relief History of Present Illness Reviewed and agree with above documented HPI by biomedical photographer. Portions of this record may have been created with voice recognition artificial intelligence software, specifically Unbound, Augmate and or popchips. Substitutions may have occurred due to the inherent limitations of voice recognition and artificial intelligence software. Patient is a 63-year-old female presented to [facility], for frontal sinus headache, facial pressure, postnasal drip, left ear pain, and a nonproductive cough. Patient states sinus congestion started a little over 2 weeks ago, has been treated self with gdwc-eth-nodaiop Mucinex without any relief, about 3 days ago when she woke up on Saturday she had increased pressure, states that the sinus congestion radiated from the frontal sinuses to maxillary more in the left and right feels like her teeth are falling on the left and sinus pressure in her left ear worsening in the right, but states her hearing is intact. Patient has been eating and drinking, has her sense of taste and smell intact, not concerned about exposure to COVID-19 or influenza. Patient denies any worsening headache, dizziness, visual changes, nausea or vomiting, pharyngitis, productive cough, worsening cough, chest pain, shortness of breath, or weakness. Physical Exam Vitals & Measurements T: 36.4 ?C(Oral) HR: 87(Peripheral) RR: 16 BP: 132/86 SpO2: 96% HT: 62 in HT: 158 cm WT: 87.5 kg WT: 192.5 lb BMI: 35.05 General: Well developed, well nourished, in no acute distress. Patient does peers ill but not septic. No respiratory distress. Patient answers questions appropriately and in complete sentences, and follows commands appropriately. Head: Normocephalic/atraum atic. Positive bilateral frontal and positive bilateral maxillary sinus tenderness and pressure with palpation, left side greater than right side. No facial swelling cellulitis. Eyes: Pupils equal, round, and reactive to light. Conjunctivae and sclerae normal, Ears: Bilateral TMs are bulging, right greater than left, no signs otitis media or otitis externa. Hearing is intact. Nose: No deformity, discharge, inflammation, or lesions Mouth: Mucous membranes moist. Normal oropharynx, and posterior pharynx with erythremia with postnasal drip without lesions, exudates, or enlarged tonsils. No difficulty swallowing. Neck: Neck supple. No masses or palpable cervical nodes. No mastoid tenderness. Lungs: Normal respiratory effort and clear to auscultation throughout, no wheezing, rales, crackles, or decreased breath sounds. Cardio: regular rate and rhythm, no murmur no chest wall tenderness. Abdomen: soft, nondistended, BS normal and active x4. Denies tenderness with palpation. No guarding, rebound, left or right CVA tenderness, suprapubic pressure, or lumbar back pain. Neurologic: Grossly normal Skin: No rashes, ulcerations, or suspicious lesions Lymph Nodes: no lad Mental Status: alert, active Assessment/Plan Patient prefers no swabs at this time. No breathing treatment or chest imaging are indicated at this time. 63-year-old female presented to [facility], for acute bacterial sinusitis, symptoms over 2 weeks ago, ongoing symptoms past 3 days, did appear ill but not septic, no respiratory distress, difficulty swallowing, productive cough, worsening cough, chest pain, shortness of breath, or weakness. 1. Acute bacterial sinusitis (J01.90: Acute sinusitis, unspecified) See above Ordered: amoxicillin, 500 mg = 1 cap(s), Oral, q12hr, # 20 cap(s), Refills(s) 0, Pharmacy: [facility], 158, cm, 08/14/23 9:13:00 EDT, Height/Length Dosing, 87.5, kg, 08/14/23 9:13:00 EDT, Weight Dosing 2. BMI 35.0-35.9,adult (Z68.35: Body mass index [BMI] 35.0-35.9, adult) The standard range for ages 18 and older is >=18.5 and < 25 kg/m2. Your BMI today was above this range, this falls in the overweight to obese category and there are medical benefits to weight loss. We can offer counselling, referral, and/or medical support in addressing this problem. Your BMI and weight management will be followed at subsequent visits. Ordered: amoxicillin, 500 mg = 1 cap(s), Oral, q12hr, # 20 cap(s), Refills(s) 0, Pharmacy: [facility], 158, cm, 08/14/23 9:13:00 EDT, Height/Length Dosing, 87.5, kg, 08/14/23 9:13:00 EDT, Weight Dosing Other specified bacterial agents as the cause of diseases classified elsewhere (B96.89: Other specified bacterial agents as the cause of diseases classified elsewhere) Follow-up With When Contact Information Link Marty CORTES, TABITHA [address] [place] [address]- Additional Instructions: Patient Education BMI for Adults Sinus Infection, Adult, Cwex-bq-Odtc (more content not included)... Normal [facility] Comment on above: Result Comment: Elec tronically Signed By: BHAVANI PEARL, STEFANY\.br\Date and Time Signed: 08/14/23 09:41 EDT Patient Educationon 08-14-19 Patient Education Infectious Disease Sinus Infection, Adult A sinus infection is soreness and swelling (inflammation) of your sinuses. Sinuses are hollow spaces in the bones around your face. They are located: ? Around your eyes. ? In the middle of your forehead. ? Behind your nose. ? In your cheekbones. Your sinuses and nasal passages are lined with a fluid called mucus. Mucus drains out of your sinuses. Swelling can trap mucus in your sinuses. This lets germs (bacteria, virus, or fungus) grow, which leads to infection. Most of the time, this condition is caused by a virus. What are the causes? ? Allergies. ? Asthma. ? Germs. ? Things that block your nose or sinuses. ? Growths in the nose (nasal polyps). ? Chemicals or irritants in the air. ? A fungus. This is rare. What increases the risk? ? Having a weak body defense system (immune system). ? Doing a lot of swimming or diving. ? Using nasal sprays too much. ? Smoking. What are the signs or symptoms? The main symptoms of this condition are pain and a feeling of pressure around the sinuses. Other symptoms include: ? Stuffy nose (congestion). This may make it hard to breathe through your nose. ? Runny nose (drainage). ? Soreness, swelling, and warmth in the sinuses. ? A cough that may get worse at night. ? Being unable to smell and taste. ? Mucus that collects in the throat or the back of the nose (postnasal drip). This may cause a sore throat or bad breath. ? Being very tired (fatigued). ? A fever. How is this diagnosed? ? Your symptoms. ? Your medical history. ? A physical exam. ? Tests to find out if your condition is short-term (acute) or long-term (chronic). Your doctor may: ? Check your nose for growths (polyps). ? Check your sinuses using a tool that has a light on one end (endoscope). ? Check for allergies or germs. ? Do imaging tests, such as an MRI or CT scan. How is this treated? Treatment for this condition depends on the cause and whether it is short-term or long-term. ? If caused by a virus, your symptoms should go away on their own within 10 days. You may be given medicines to relieve symptoms. They include: ? Medicines that shrink swollen tissue in the nose. ? A spray that treats swelling of the nostrils. ? Rinses that help get rid of thick mucus in your nose (nasal saline washes). ? Medicines that treat allergies (antihistamines). ? Rvta-nrx-gprmfqt pain relievers. ? If caused by bacteria, your doctor may wait to see if you will get better without treatment. You may be given antibiotic medicine if you have: ? A very bad infection. ? A weak body defense system. ? If caused by growths in the nose, surgery may be needed. Follow these instructions at home: Medicines ? Take, use, or apply btey-njr-kfhtpep and prescription medicines only as told by your doctor. These may include nasal sprays. ? If you were prescribed an antibiotic medicine, take it as told by your doctor. Do not stop taking it even if you start to feel better. Hydrate and humidify ? Drink enough water to keep your pee (urine) pale yellow. ? Use a cool mist humidifier to keep the humidity level in your home above 50%. ? Breathe in steam for 10?15 minutes, 3?4 times a day, or as told by your doctor. You can do this in the bathroom while a hot shower is running. ? Try not to spend time in cool or dry air. Rest ? Rest as much as you can. ? Sleep with your head raised (elevated). ? Make sure you get enough sleep each night. General instructions ? Put a warm, moist washcloth on your face 3?4 times a day, or as often as told by your doctor. ? Use nasal saline washes as often as told by your doctor. ? Wash your hands often with soap and water. If you cannot use soap and water, use hand pneumatic systems operator. ? Do not smoke. Avoid being around people who are smoking (secondhand smoke). ? Keep all follow-up visits. Contact a doctor if: ? You have a fever. ? Your symptoms get worse. ? Your symptoms do not get better within 10 days. Get help right away if: ? You have a very bad headache. ? You cannot stop vomiting. ? You have very bad pain or swelling around your face or eyes. ? You have trouble seeing. ? You feel confused. ? Your neck is stiff. ? You have trouble breathing. These symptoms may be an emergency. Get help right away. Call 911. ? Do not wait to see if the symptoms will go away. ? Do not drive yourself to the hospital. Summary ? A sinus infection is swelling of your sinuses. Sinuses are hollow spaces in the bones around your face. ? This condition is caused by tissues in your nose that become inflamed or swollen. This traps germs. These can lead to infection. ? If you were prescribed an antibiotic medicine, take it as told by your doctor. Do not stop taking it even if you start to feel better. ? Keep all follow-up visits (more content not included)... Normal [facility] Ambulatory Visit Summaryon 0 08-09-2023 Ambulatory Visit Summary SHEA PROCTOR :1960 Visit Date:08/09/2023 Ambulatory Visit Instructions Your Diagnosis MDD (major depressive disorder), recurrent episode, mild Hyperlipidemia Dystrophic nail Essential hypertension BMI 34.0-34.9,adult Non-smoker Your Care Team Attending Physician - Marty Vargas DO Primary Care Physician - Marty Vargas DO This Is Your Medications List omega-3 polyunsaturated fatty acids (Fish Oil) polyethylene glycol 3350 (MiraLax) sertraline (sertraline 100 mg Tab) Procedures Performed Release of tendon (04/13/2020), Abdominal hysterectomy, Appendectomy, C SECTION X2, Carpal tunnel release, Colonoscopy, D&C - Dilatation and curettage, Laparoscopic cholecystectomy. Discharge Vitals Heart Rate (Peripheral) 62 Blood Pressure 142/88 Height 62 in Height 158 cm Weight 190.96 lb Weight 86.8 kg BMI 34.77 What to do next Scheduled Follow-Up Appointments Saturday 11:15 AM EDT With: Gilberto MADRIGAL MD Where: [facility] Invalid Interpretation Code [address] [place] [address]-\.br\ Saturday 11:00 AM EDT \.br\ With:\.br\ Where: [facility] Ambulatory Visit Summary SHEA PROCTOR :1960 Visit Date:08/09/2023 Ambulatory Visit Instructions Your Diagnosis MDD (major depressive disorder), recurrent episode, mild BMI 34.0-34.9,adult Non-smoker Hyperlipidemia Your Care Team Attending Physician - Marty Vargas DO Primary Care Physician - CORA BRANHAM CNP This Is Your Medications List omega-3 polyunsaturated fatty acids (Fish Oil) polyethylene glycol 3350 (MiraLax) sertraline (sertraline 100 mg Tab) Procedures Performed Release of tendon (04/13/2020), Abdominal hysterectomy, Appendectomy, C SECTION X2, Carpal tunnel release, Colonoscopy, D&C - Dilatation and curettage, Laparoscopic cholecystectomy. Discharge Vitals Heart Rate (Peripheral) 62 Blood Pressure 142/88 Height 62 in Height 158 cm Weight 190.96 lb Weight 86.8 kg BMI 34.77 What to do next Scheduled Follow-Up Appointments Saturday 11:15 AM EDT With: KAITLIN DOLL, Gilberto Jose Where: [facility] Invalid Interpretation Code [address] [place] [address]-\.br\ Saturday 11:00 AM EDT \.br\ With:\.br\ Where: [facility] Office/Clini c Noteon 08-09-2023 Family Medicine Office/Clinic Note Chief Complaint Chronic condition f/u HPI Staff Patient here for chronic condition f/u - New to Me Patient has hx of elevated bp, hyperlipidemia, and impaired fasting glucose. BUN: 18 mg/dL (02/25/23 08:11:00) Calcium Lvl: 9.6 mg/dL (02/25/23 08:11:00) Chloride: 108 mmol/L (02/25/23 08:11:00) CO2: 26 mmol/L (02/25/23 08:11:00) Creatinine: 1 mg/dL (04/19/23 11:52:00) eGFR: >60 (04/19/23 11:52:00) Glucose Lvl: 106 mg/dL (02/25/23 08:11:00) Potassium Lvl: 4.4 mmol/L (02/25/23 08:11:00) Sodium Lvl: 138 mmol/L (02/25/23 08:11:00) Chol: 279 mg/dL High (02/25/23 08:11:00) HDL: 78 mg/dL (02/25/23 08:11:00) LDL Direct: 187 mg/dL High (02/25/23 08:11:00) Tri mg/dL (02/25/23 08:11:00) VLDL: 28 mg/dL (02/25/23 08:11:00) Follow up for Mental Status: Medication adherence- Yes, takes medication as prescribed Medication refill needed: yes Suicidal thoughts-Not at this time Most recent SHOAIB: 5 Most recent PHQ9: 2 - Patient would like Left thumb nail assessed. Last time patient was seen ATB given, no improvement. Lynnette: 01/08/23 per pt NOMs Dexa: DUE [place]: 06/18/23, repeat in 5 year Flu: declines AMW: 02/18/24 History of Present Illness Care History Patient last PCP was: Cora Branham CNP, Dr. Lozano, Soraya Hammer CNP Patient is on Zoloft for >20 years. She states she was put on following the of her son in an accident. She has also had a lot of work stress when she was placed on it. She has reached a good baseline, and wishes to know if she needs to continue the medication today. She is concerned about her blood pressure at home. She has been close to the borderline and this bothers her. She does monitor her BP at home with an arm cuff. 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 She would like to check on this today and see if she has any problems with this nail. Social Patient is a 63-year-old female Patient is currently Patient has no smoking history. Patient has no use of marijuana. Patient has never abused drugs or prescriptions. Patient has social alcohol use without abuse. Preventative Care Last physical - 2022 Last Labs - 2022 Last Pap - aged out Last Mammogram - 11/2021 Last Colonoscopy - 05/2023 - due 2028 Review of Systems PHQ Score Initial Depression Screen Score: 1 SCORE ROS - Provider Constitutional: no fever, no chills Skin: no rash, no lesions, yes dystrophic nail ENMT: no ear pain, no sore throat, no congestion, no hoarseness. Respiratory: no shortness of breath, no cough, no wheezing. Cardiovascular: no chest pain, no palpitations, no edema. Gastrointestinal: no nausea, no vomiting, no diarrhea, Musculoskeletal: no back pain, no trauma. Neurologic: no headache, no dizziness, no numbness, no weakness. Psychiatric: no sleeping problems, no irritability, no mood swings/depression. Physical Exam Vitals & Measurements HR: 62(Peripheral) BP: 142/88 SpO2: 98% HT: 62 in HT: 158 cm WT: 86.8 kg WT: 190.96 lb BMI: 34.77 General: Well developed, well nourished, in no acute distress Head: Normocephalic/atraum atic Eyes: Pupils equal, round, and reactive to light. Sclerae normal, and extraocular movements intact Lungs: Normal respiratory effort and clear to auscultation Cardio: Regular rate and rhythm, normal S1 and S2, no murmur, no rub Musculoskeletal: No deformity or scoliosis noted. Normal range of motion. Joints normal. No erythema, edema, effusion, or ecchymosis Extremity: No clubbing, cyanosis, edema, or deformity, with normal ROM in both upper and lower bilateral extremities Neurologic: Grossly normal Skin: No rash, petechiae, suspicious lesions, dysmorphic nail of the left thumb, no sign of onychomycosis or paronychia Mental Status: Alert and oriented x3. Normal mood and affect Assessment/Plan 1. MDD (major depressive disorder), recurrent episode, mild (F33.0: Major depressive disorder, recurrent, mild) Patient placed on Sertraline >20 years ago, wishes to trial off the medication. This is reasonable, her findings are stable today. Recommended she reduce to 50mg with her 100mg in half. She will return in 4 weeks, and we will reassess her mental status. Consider further taper to removal based on her response to the reduced dose. Patient to call with any concerns. 2. Hyperlipidemia (E78.5: Hyperlipidemia, unspecified) Patient currently taking 1g fish oil for hyperlipidemia supplement, recommended she increase to 2g daily. Recommended we recheck lipids in 8 weeks, and if still elevated, consider Statin as her ASCVD risk is raised. 3. 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 Advised her that this is not likely to change from here, and she can file the nail to a more cosmetic shape. Worst case scenario we could remove the nail if desired, but she does not desire this. Will recheck as needed. 4. Essential hypertension (I10: Essential (primary) hypertension) Patient borderline hyp (more content not included)... Normal [facility] Comment on above: Result Comment: Elec margaretally Signed By: Marty Vargas DO\Date and Time Signed: 08/09/23 13:36 EDT Physician Referralon 024 Physician Referral [id number] #1.00TIFF Normal [facility] Gastroenterology Office/Clin ic Noteon 07-04-2023 Gastroenterology Office/Clinic Note Chief Complaint follow up to colon HPI Staff This is a 63 year old female who presents today for a follow up to Colonoscopy. Last visit w/ Nany Assessment/Plan 1. LLQ pain (R10.32: Left lower quadrant pain) Sharp pain in LLQ- started 2 months ago. Improved with miralax- possibly related to constipation and/or diverticulitis. Previous labs 02/25/2023 revealed normal H&H, normal BUN, normal creatinine, normal LFTs. Ordered CT A/P to evaluate for diverticulitis. Educated to start fiber supplementation daily- metamucil 2 caps daily- separate 2 hours from other medications. 2. Weight loss (R63.4: Abnormal weight loss) Reportedly stopped sleeping pill and medication for RLS and had lost 10-12 pounds unintentionally. Previous colonoscopy 08/2015 revealed hemorrhoids, diverticulosis, tubular adenoma removed from sigmoid colon, ascending colon and rectal biopsy was normal. 3. History of colon polyps (Z86.010: Personal history of colonic polyps) see #2 Ordered Colonoscopy. Denies anticoagulation therapy. 4. Family history of colon cancer (Z80.0: Family history of malignant neoplasm of digestive organs) see #2 Family history of colon cancer: Patient's sister, maternal grandfather, and maternal uncle. Colon 06/18/23 ENDOSCOPIC DIAGNOSIS 1. small internal hemorrhoids 2. moderate sigmoid diverticulosis 3. Normal examined TI repeat colon [address] 05/07/23 IMPRESSION: HEPATIC STEATOSIS. CHOLECYSTECTOMY. NONOBSTRUCTING LEFT LOWER POLE RENAL CALCULUS. History of Present Illness pain in the left lower abd worse since colonoscopy pt not moving bowels not as it was before trying to use coffee and miralax feels gassy straining incomplete evacuation pt tried gas-X hx of 2 sections and hysterectomy several years ago I have reviewed HPI staff note, most recent labs and imaging, more than 30 minutes spent reviewing the chart, during encounter, placing orders and counseling the patient. Review of Systems PHQ Score Initial Depression Screen Score: 0 SCORE All systems reviewed, negative except as mentioned above Physical Exam Vitals & Measurements HR: 84(Peripheral) RR: 16 BP: 137/81 HT: 62 in HT: 158 cm WT: 87 kg WT: 191.4 lb BMI: 34.85 General: alert, no acute distress HEENT: atraumatic normocephalic Cardiovascular: regular rate and rhythm, normal peripheral perfusion Respiratory: Lungs CTA, respirations non labored Extremities: no deformity, no trauma Abdomen: Benign, soft, nontender nondistended Assessment/Plan 1. LLQ pain (R10.32: Left lower quadrant pain) Ordered: hyoscyamine, 0.125 mg = 1 tab(s), Oral, QID, # 40 tab(s), Refills(s) 0, Pharmacy: [facility], 158, cm, 07/04/23 9:24:00 EST, Height/Length Dosing, 87, kg, 07/04/23 9:24:00 EST, Weight Dosing Rectal Manometry (Hospital Procedure) Rectal Manometry (Hospital Procedure) 2. Weight loss (R63.4: Abnormal weight loss) Ordered: hyoscyamine, 0.125 mg = 1 tab(s), Oral, QID, # 40 tab(s), Refills(s) 0, Pharmacy: [facility], 158, cm, 07/04/23 9:24:00 EST, Height/Length Dosing, 87, kg, 07/04/23 9:24:00 EST, Weight Dosing Rectal Manometry (Hospital Procedure) 3. Family history of colon cancer (Z80.0: Family history of malignant neoplasm of digestive organs) Ordered: hyoscyamine, 0.125 mg = 1 tab(s), Oral, QID, # 40 tab(s), Refills(s) 0, Pharmacy: [facility], 158, cm, 07/04/23 9:24:00 EST, Height/Length Dosing, 87, kg, 07/04/23 9:24:00 EST, Weight Dosing 4. History of colon polyps (Z86.010: Personal history of colonic polyps) Ordered: hyoscyamine, 0.125 mg = 1 tab(s), Oral, QID, # 40 tab(s), Refills(s) 0, Pharmacy: [facility], 158, cm, 07/04/23 9:24:00 EST, Height/Length Dosing, 87, kg, 07/04/23 9:24:00 EST, Weight Dosing 5. 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 S/P cholecystectomy (Z90.49: Acquired absence of other specified parts of digestive tract) Ordered: hyoscyamine, 0.125 mg = 1 tab(s), Oral, QID, # 40 tab(s), Refills(s) 0, Pharmacy: [facility], 158, cm, 07/04/23 9:24:00 EST, Height/Length Dosing, 87, kg, 07/04/23 9:24:00 EST, Weight Dosing 7. H/O: hysterectomy (Z90.710: Acquired absence of both cervix and uterus) Ordered: hyoscyamine, 0.125 mg = 1 tab(s), Oral, QID, # 40 tab(s), Refills(s) 0, Pharmacy: [facility], 158, cm, 07/04/23 9:24:00 EST, Height/Length Dosing, 87, kg, 07/04/23 9:24:00 EST, Weight Dosing [facility] External Ambulatory Referral 8. Constipation, outlet dysfunction (K59.02: Outlet dysfunction constipation) Ordered: hyoscyamine, 0.125 mg = 1 tab(s), Oral, QID, # 40 tab(s), Refills(s) 0, Pharmacy: [facility], 158, cm, 07/04/23 9:24:00 EST, Height/ (more content not included)... [facility] Comment on above: Result Comment: Elec giovany Signed By: Ancelmo DOLL, Miguel Hitchcock.annel\Date and Time Signed: 07/04/23 09:58 EST Reminderson 07-02-2023 Reminders - From: Flaco Cisneros To: [facility] - Reminders/Recalls; Sent: 07/02/2023 11:52:49 EST Show up: 05/30/2028 11:52:00 EST Subject: Ambulatory Reminder Due Date/Time: 06/18/2028 11:52:00 EST Reminder/Recall Repeat colonoscopy in 5 years(2028) due to family hx of colon ca [facility] Outside Colonoscopyon 2023 Outside Colonoscopy [id number]#2.00TIFF [facility] Consent for Procedure/Surger yon 05-15-2023 Consent for Procedure/Surgery [id number]# 1.00TIFF [facility] Patient Educationon 05-09-19 24 Patient Education Gastroenterology Obesity, Adult Obesity is the condition of having too much total body fat. Being overweight or obese means that your weight is greater than what is considered healthy for your body size. Obesity is determined by a measurement called BMI (body mass index). BMI is an estimate of body fat and is calculated from height and weight. For adults, a BMI of 30 or higher is considered obese. Obesity can lead to other health concerns and major illnesses, including: ? Stroke. ? Coronary artery disease (CAD). ? Type 2 diabetes. ? Some types of cancer, including cancers of the colon, breast, uterus, and gallbladder. ? High blood pressure (hypertension). ? High cholesterol. ? Gallbladder stones. Obesity can also contribute to: ? Osteoarthritis. ? Sleep apnea. ? Infertility problems. What are the causes? Common causes of this condition include: ? Eating daily meals that are high in calories, sugar, and fat. ? Drinking high amounts of sugar-sweetened beverages, such as soft drinks. ? Being born with genes that may make you more likely to become obese. ? Having a medical condition that causes obesity, including: ? Hypothyroidism. ? Polycystic ovarian syndrome (PCOS). ? Binge-eating disorder. ? Boissevain syndrome. ? Taking certain medicines, such as steroids, antidepressants, and seizure medicines. ? Not being physically active (sedentary lifestyle). ? Not getting enough sleep. What increases the risk? The following factors may make you more likely to develop this condition: ? Having a family history of obesity. ? Living in an area with limited access to: ? [place], recreation centers, or sidewalks. ? Healthy food choices, such as grocery stores and drchrono. What are the signs or symptoms? The main sign of this condition is having too much body fat. How is this diagnosed? This condition is diagnosed based on: ? Your BMI. If you are an adult with a BMI of 30 or higher, you are considered obese. ? Your waist circumference. This measures the distance around your waistline. ? Your skinfold thickness. Your health care provider may gently pinch a fold of your skin and measure it. You may have other tests to check for underlying conditions. How is this treated? Treatment for this condition often includes changing your lifestyle. Treatment may include some or all of the following: ? Dietary changes. This may include developing a healthy meal plan. ? Regular physical activity. This may include activity that causes your heart to beat faster (aerobic exercise) and strength training. Work with your health care provider to design an exercise program that works for you. ? Medicine to help you lose weight if you are unable to lose one pound a week after six weeks of healthy eating and more physical activity. ? Treating conditions that cause the obesity (underlying conditions). ? Surgery. Surgical options may include gastric banding and gastric bypass. Surgery may be done if: ? Other treatments have not helped to improve your condition. ? You have a BMI of 40 or higher. ? You have life-threatening health problems related to obesity. Follow these instructions at home: Eating and drinking ? Follow recommendations from your health care provider about what you eat and drink. Your health care provider may advise you to: ? Limit fast food, sweets, and processed snack foods. ? Choose low-fat options, such as low-fat milk instead of whole milk. ? Eat five or more servings of fruits or vegetables every day. ? Choose healthy foods when you eat out. ? Keep low-fat snacks available. ? Limit sugary drinks, such as soda, fruit juice, sweetened iced tea, and flavored milk. ? Drink enough water to keep your urine pale yellow. ? Do not follow a fad diet. Fad diets can be unhealthy and even dangerous. ? Other healthful choices include: ? Eat at home more often. This gives you more control over what you eat. ? Learn to read food labels. This will help you understand how much food is considered one serving. ? Learn what a healthy serving size is. Physical activity ? Exercise regularly, as told by your health care provider. ? Most adults should get up to 150 minutes of moderate-intensity exercise every week. ? Ask your health care provider what types of exercise are safe for you and how often you should exercise. ? Warm up and stretch before being active. ? Cool down and stretch after being active. ? Rest between periods of activity. Lifestyle ? Work with your health care provider and a dietitian to set a weight-loss goal that is healthy and reasonable for you. ? Limit your screen time. ? Find ways to reward yourself that do not involve food. ? Do not drink alcohol if: ? Your health care provider tells you not to drink. ? You are , may be , or are planning to become . ? If you drink alcohol: ? Limit how much you have to (more content not included)... Normal [facility] CT Abdomen/Pelvis w/ Contras ton 05-08-2023 CT Abdomen/Pelvis w/ Contrast Exam Date/Time: 05/07/2023 12:32 EST Reason for Exam: LLQ pain;Other (please specify) Report IMPRESSION: HEPATIC STEATOSIS. CHOLECYSTECTOMY. NONOBSTRUCTING LEFT LOWER POLE RENAL CALCULUS. CT OF THE ABDOMEN AND PELVIS WITHOUT INTRAVENOUS CONTRAST MEDIUM. History: LLQ pain. Intermittent diarrhea and constipation. Hyperactive bowel sounds. Findings present for one month, getting worse. Technical Factors: CT imaging of the abdomen and pelvis were obtained and formatted as 5 mm contiguous axial images from the domes of the diaphragm to the symphysis pubis. Sagittal and coronal reconstructions were also obtained. Oral contrast medium: Barium sulfate, 900 mL. Intravenous contrast medium: Isovue-300, 100 mL Comparison: CT abdomen pelvis, October 18, 2021. Findings: Lungs: Lung bases are clear. Liver: Normal in size, shape, and diffusely decreased in attenuation. Bile Ducts: Normal in caliber. Gallbladder: Surgically absent. Pancreas: Normal without masses, cysts, ductal dilatation or calcification. Spleen: Normal in size without masses or calcifications. No splenules. Kidneys: Normal in size and enhancement. No hydronephrosis, masses. 5 mm calculus, lower pole left kidney.. Adrenals: Normal. Small bowel: Normal in caliber. Appendix: Not visualized. Colon: Normal in caliber. Peritoneum: No ascites, free air, or fluid collections. Report Vessels: Aorta normal in course and caliber. Portal vein, splenic vein, superior mesenteric vein are patent. Lymph nodes: Retroperitoneal: No enlarged retroperitoneal lymph nodes. Mesenteric: No enlarged mesenteric lymph nodes. Pelvic: No enlarged pelvic lymph nodes. Ureters: Normal in course and caliber. No calcifications. Bladder: Decompressed. Abdominal Wall: 7.5 mm fat-containing periumbilical anterior abdominal wall defect. No diastasis of rectus musculature. No edema or masses. Bones: No bone lesions. No degenerative changes. No post operative changes. All CT scans at this facility use dose modulation, iterative reconstruction, and/or weight based dosing when appropriate to reduce radiation dose to as low as reasonably achievable. Ordering Provider: , FINAL REPORT Dictated: 05/08/2023 3:17 pm Jorge Romero MD Signed (Electronic Signature): 05/08/2023 3:17 pm Signed by: Jorge Romero MD Transcribed by: DP Technologist: SB Technical Comments GFR (mL/min/1/73m2) >60 Contrast: Isovue 300 Contrast amount in ml's: 100 Rectal Contrast Given? No Oral contrast amount in ml's: 900 Normal [facility] Consent for Treatmenton Consent for Treatment [id number] #1.00TIFF Normal [facility] CHEMISTRYOrdered By: SYSTEM SYSTEM on 04-19-2023 Creatinine [Mass/Vol] 1.0 mg/dL Normal 0.5 - 1.3 mg/dL Remisol Chem eGFR mL/min/1.73 m2 Normal >=59mL/min/1. 73 m2 Remisol Chem Consent for Treatmenton 03-30 Consent for Treatment [id number] #1.00TIFF Normal [facility] Creatinineon 04-19-2023 Creatinine [Mass/Vol] 1.0 mg/dL Normal 0.5-1.3 [facility] Comment on above: Performed By: #### 1 [id number] ####[facility] [address] [place] [address] Physician Orderon 04-19-2023 Physician Order [id number] #1.00TIFF Normal [facility] eGFRon 04-19-2023 GFR/1.73 sq M.predicted among non-blacks MDRD (S/P/Bld) [Vol rate/Area] mL/min/{1.73_m2} Normal >=59 [facility] Comment on above: Order Comment: Order added by Discern Expert. Performed By: #### 1 [id number] ####[facility] [address] [place] [address] Ambulatory Visit Summaryon 06-17-2022 Ambulatory Visit Summary SHEA PROCTOR :1960 Visit Date:04/16/2023 Ambulatory Visit Instructions Your Diagnosis LLQ pain Weight loss History of colon polyps Family history of colon cancer Your Care Team Attending Physician - Nany Queen CNP Primary Care Physician - CORA BRANHAM CNP Referring Physician - CORA BRANHAM CNP This Is Your Medications List polyethylene glycol 3350 with electrolytes (NuLYTELY [place] oral powder for reconstitution) Contact prescribing physician if questions or concerns omega-3 polyunsaturated fatty acids (Fish Oil) polyethylene glycol 3350 (MiraLax) sertraline (sertraline 100 mg Tab) Procedures Performed Release of tendon (04/13/2020), Abdominal hysterectomy, Appendectomy, C SECTION X2, Carpal tunnel release, Colonoscopy, D&C - Dilatation and curettage, Laparoscopic cholecystectomy. Discharge Vitals Temperature (Temporal Artery) 36.4 ?C Heart Rate (Peripheral) 77 Blood Pressure 146/88 Height 63 in Height 160 cm Weight 188.98 lb Weight 85.9 kg BMI 33.55 What to do next Scheduled Follow-Up Appointments Saturday 11:00 AM EDT Where: [facility] [place] Normal Weight loss, pp_set_radiology_ subspecialty, Not Required, [facility]\.br\ Medications\.br\ What How Much When Instructions\.br\ New polyethylene glycol 3350 with electrolytes (NuLYTELY [place] oral powder for reconstitution) See instructions Prior to colonoscopy. Pickup at [facility]\.br\ Unchanged omega-3 polyunsaturated fatty acids (Fish Oil) Contact prescribing physician if questions or concerns \.br\ Unchanged polyethylene glycol 3350 (MiraLax) Contact prescribing physician if questions or concerns \.br\ Unchanged sertraline (sertraline 100 mg Tab) Contact prescribing physician if questions or concerns \.br\ Pharmacy Information\.br\ [facility]: [address] [place], [place] [id number] [phone]\.br\ Medications and Immunizations Administered\.br\ Not Given\.br\ influenza virus vaccine, inactivated, Patient Refuses\.br\ Allergies\.br\ Tape (Blister)\.br\ Problems\.br\ Ongoing - Any problem that you are currently receiving treatment for.\.br\ Achilles tendonitis\.br\ Adult BMI 33.0-33.9 kg/sq m\.br\ Arthritis\.br\ CTS - Carpal tunnel syndrome\.br\ Elevated blood pressure reading\.br\ Family history of colon cancer\.br\ Flank pain\.br\ History of colon polyps\.br\ Hyperlipidemia\.b r\ Impaired fasting glucose\.br\ Kidney stone\.br\ LLQ pain\.br\ MDD (major depressive disorder), recurrent episode, mild\.br\ Microscopic hematuria\.br\ Obesity\.br\ Obstructive sleep apnea, adult\.br\ Pain of left heel\.br\ Restless leg syndrome\.br\ Right otitis media\.br\ Right wrist pain\.br\ Stress incontinence\.br\ Ureteral calculus\.br\ Urine stream spraying\.br\ Weight loss\.br\ Historical - Any problem that you are no longer receiving treatment for.\.br\ Abnormal weight gain\.br\ Adult BMI 35.0-35.9 kg/sq m\.br\ Chronic depression\.br\ Diverticulitis\.b r\ Gallstones\.br\ Screening for diabetes mellitus\.br\ Screening, lipid\.br\ Vaginitis\.br\ Patient Survey\.br\ You may receive a survey via text or e-mail asking about your office visit. Please share your experience with us by completing your survey. We appreciate your feedback and thank you for choosing us for your care.\.br\ Education Materials\.br\ Colonoscopy, Adult\.br\ A colonoscopy is a procedure to look at the entire large intestine. This procedure is done using a long, thin, flexible tube that has a camera on the end.\.br\ You may have a colonoscopy:\.br\ ? \.br\ As a part of normal colorectal screening.\.br\ ? \.br\ If you have certain symptoms, such as:\.br\ ? \.br\ A low number of red blood cells in your blood (anemia).\.br\ ? \.br\ Diarrhea that does not go away.\.br\ ? \.br\ Pain in your abdomen.\.br\ ? \.br\ Blood in your stool.\.br\ A colonoscopy can help screen for and diagnose medical problems, including:\.br\ ? \.br\ An abnormal growth of cells or tissue (tumor).\.br\ ? \.br\ Abnormal growths within the lining of your intestine (polyps).\.br\ ? \.br\ Inflammation.\.br \ ? \.br\ Areas of bleeding.\.br\ Tell your health care provider about:\.br\ ? \.br\ Any allergies you have.\.br\ ? \.br\ All medicines you are taking, including vitamins, herbs, eye drops, creams, and glla-pwv-wxsymgz medicines.\.br\ ? \.br\ Any problems you or family members have had with anesthetic medicines.\.br\ ? \.br\ Any bleeding problems you have.\.br\ ? \.br\ Any surgeries you have had.\.br\ ? \.br\ Any medical conditions you have.\.br\ ? \.br\ Any problems you have had with having bowel movements.\.br\ ? \.br\ Whether you are or may be .\.br\ What are the risks?\.br\ Generally, this is a safe procedure. However, problems may occur, including:\.br\ ? \.br\ Bleeding.\.br\ ? \.br\ Damage to your intestine.\.br\ ? \.br\ Allergic reactions to medicines given during the procedure.\.br\ ? \.br\ Infection. This is rare.\.br\ What happens before the procedure?\.br\ Eating and drinking restrictions\.br\ Follow instructions from your health care provider about eating or drinking restrictions, which may include:\.br\ ? \.br\ A few days before the procedure:\.br\ ? \.br\ Follow a low-fiber diet.\.br\ ? \.br\ Avoid nuts, seeds, dried fruit, raw fruits, and vegetables.\.br\ ? \.br\ 1?3 days before the procedure:\.br\ ? \.br\ Eat only gelatin dessert or ice pops.\.br\ ? \.br\ Drink only clear liquids, such as water, clear juice, clear broth or bouillon, black coffee or tea, or clear soft drinks or sports drinks.\.br\ ? \.br\ Avoid liquids that contain red or purple dye.\.br\ ? \.br\ The day of the procedure:\.br\ ? \.br\ Do not eat solid foods. You may continue to drink clear liquids until up to 2 hours before the procedure.\.br\ ? \.br\ Do not eat or drink anything starting 2 hours before the procedure, or within the time period that your health care provider recommends.\.br\ Bowel prep\.br\ If you were prescribed a bowel prep to take by mouth (orally) to clean out your colon:\.br\ ? \.br\ Take it as told by your health care provider. Starting the day before your procedure, you will need to drink a large amount of liquid medicine. The liquid will cause you to have many bowel movements of loose stool until your stool becomes almost clear or light green.\.br\ ? \.br\ If your skin or the opening between the buttocks (anus) gets irritated from diarrhea, you may relieve the irritation using:\.br\ ? \.br\ Wipes with medicine in them, such as adult wet wipes with aloe and vitamin E.\.br\ ? \.br\ A product to soothe skin, such as petroleum jelly.\.br\ ? \.br\ If you vomit while drinking the bowel prep:\.br\ ? \.br\ Take a break for up to 60 minutes.\.br\ ? \.br\ Begin the bowel prep again.\.br\ ? \.br\ Call your health care provider if you keep vomiting or you cannot take the bowel prep without vomiting.\.br\ ? \.br\ To clean out your colon, you may also be given:\.br\ ? \.br\ Laxative medicines. These help you have a bowel movement.\.br\ ? \.br\ Instructions for enema use. An enema is liquid medicine injected into your rectum.\.br\ Medicines\.br\ Ask your health care provider about:\.br\ ? \.br\ Changing or stopping your regular medicines or supplements. This is especially important if you are taking iron supplements, diabetes medicines, or blood thinners.\.br\ ? \.br\ Taking medicines such as aspirin and ibuprofen. These medicines can thin your blood. Do not take these medicines unless your health care provider tells you to take them.\.br\ ? \.br\ Taking bpuo-tmv-adfnzjf medicines, vitamins, herbs, and supplements.\.br\ General instructions\.br\ ? \.br\ Ask your health care provider what steps will be taken to help prevent infection. These may include washing skin with a germ-killing soap.\.br\ ? \.br\ If you will be going home right after the procedure, plan to have a responsible adult:\.br\ ? \.br\ Take you home from the hospital or clinic. You will not be allowed to drive.\.br\ ? \.br\ Care for you for the time you are told.\.br\ What happens during the procedure?\.br\ \.br\ ? \.br\ An IV will be inserted into one of your veins.\.br\ ? \.br\ You will be given a medicine to make you fall asleep (general anesthetic).\.br\ ? \.br\ You will lie on your side with your shin [facility] Gastroenterology Office/Clin ic Noteon 04-16-2023 Gastroenterology Office/Clinic Note Chief Complaint Lower left side abdominal pain. HPI Staff This is a 63 year old female who presents today to schedule a colonoscopy. Patient was referred by Marcus Branham CNP and last colonoscopy was 09/21/2015. Patients 10/05/2015 follow up was printed from [employer]. Patient c/o sharp intermittent left lower abdominal pain and states that MIralax has helped. History of Present Illness Patient is a 63-year-old female who presents for colonoscopy- referred by her PCP: Cora Branham CNP. Patient had previous colonoscopy 08/[address] Capone that revealed hemorrhoids, diverticulosis, tubular adenoma removed from sigmoid colon, ascending colon and rectal biopsy was normal. Patient had previous EGD 09/[address] Sinclair that revealed an inlet patch in esophagus, multiple gastric polyps suggestive of fundic gland polyps, normal duodenum, biopsy of polyp revealed fundic gland polyp, stomach biopsy revealed chronic gastritis, negative for H. pylori. Patient had previous labs 02/25/2023 that revealed normal H&H, normal BUN, normal creatinine, normal LFTs. Family history of colon cancer: Patient's sister, maternal grandfather, and maternal uncle. Family history of colon polyps: Denies. Personal history of colon cancer: Denies. Personal history of colon polyps: Yes, see above. Anticoagulation therapy: Denies. Antiplatelet therapy: Denies. During today's visit, patient reports she started having LLQ pain described as sharp 2 months ago that was previously occurring daily. She reports she was having hard, small, flat stools during time of LLQ pain. Was having 3-4 BMs a week and had to push/strain to have a BM. She started miralax 3 weeks ago and is having improved LLQ pain that is occurring 1 time a week. With miralax, she is currently having 1 formed BM daily that are soft in consistency. She explains she stopped sleeping pill and medication for RLS and had lost 10-12 pounds unintentionally. Denies black/bloody stool, fevers/chills, nausea/vomiting. Review of Systems PHQ Score Initial Depression Screen Score: 2 SCORE ROS - Provider Constitutional: no fever, no chills. Skin: no Jaundice. ENMT: Denies dysphagia and heartburn. Respiratory: no shortness of breath. Cardiovascular: no chest pain. Gastrointestinal: no nausea, no vomiting, no diarrhea, no GI bleeding. Physical Exam Vitals & Measurements T: 36.4 ?C(Temporal Artery) HR: 77(Peripheral) BP: 146/88 HT: 63 in HT: 160 cm WT: 85.9 kg WT: 188.98 lb BMI: 33.55 General: Well developed, well nourished, in no acute distress Head: Normocephalic/atraum atic Lungs: Normal respiratory effort and clear to auscultation Cardio: Regular rate and rhythm, normal S1 and S2, no murmur, no rub Abdomen: Soft, non-distended, mildly tender in LLQ, otherwise non-tender in all other abdominal quadrants, bilaterally. Normoactive bowel sounds present in all 4 abdominal quadrants, bilaterally. Mental Status: Alert and oriented x3. Normal mood and affect Assessment/Plan BP elevated today at 146/88- BP managed by patient's PCP. Patient to follow-up with PCP for BP management. 1. LLQ pain (R10.32: Left lower quadrant pain) Sharp pain in LLQ- started 2 months ago. Improved with miralax- possibly related to constipation and/or diverticulitis. Previous labs 02/25/2023 revealed normal H&H, normal BUN, normal creatinine, normal LFTs. Previous colonoscopy 08/2015 revealed hemorrhoids, diverticulosis, tubular adenoma removed from sigmoid colon, ascending colon and rectal biopsy was normal. Ordered CT A/P to evaluate for diverticulitis. Ordered Colonoscopy- patient to have CT prior to colonoscopy. Denies anticoagulation therapy. Educated to start fiber supplementation daily- metamucil 2 caps daily- separate 2 hours from other medications. Ordered: Colonoscopy (Hospital Procedure) CT Abdomen/Pelvis w/ Contrast 2. Weight loss (R63.4: Abnormal weight loss) Reportedly stopped sleeping pill and medication for RLS and had lost 10-12 pounds unintentionally. Previous colonoscopy 08/2015 revealed hemorrhoids, diverticulosis, tubular adenoma removed from sigmoid colon, ascending colon and rectal biopsy was normal. Ordered Colonoscopy. Denies anticoagulation therapy. Ordered: Colonoscopy (Hospital Procedure) CT Abdomen/Pelvis w/ Contrast 3. History of colon polyps (Z86.010: Personal history of colonic polyps) Previous colonoscopy 08/2015 revealed hemorrhoids, diverticulosis, tubular adenoma removed from sigmoid colon, ascending colon and rectal biopsy was normal. Ordered Colonoscopy. Denies anticoagulation therapy. Ordered: Colonoscopy (Hospital Procedure) 4. Family history of colon cancer (Z80.0: Family history of malignant neoplasm of digestive organs) Family history of colon cancer: Patient's sister, maternal grandfather, and maternal uncle. Previous colonoscopy 08/2015 revealed hemorrhoids, diverticulosis, tubular adenoma removed from sigmoid colon, ascending colon and rectal biopsy (more content not included)... Normal [facility] Comment on above: Result Comment: Elec tronically Signed By: Nany Queen CNP\.br\Date and Time Signed: 04/16/23 09:08 EST Auto Diffon 02-25-2023 Basophils/100 WBC (Bld) 0.4 % Normal 0.0-2.0 [facility] Comment on above: Order Comment: Order Added by Discern Expert. Performed By: #### 2 569535, 8121366, 2326282, 2837940, [id number] ####[facility] [address] [place] [address] Basophils/Leukocytes Auto (Bld) [Pure # fraction] 0.0 E9/L Normal 0.0-0.2 [facility] Comment on above: Order Comment: Order Added by Discern Expert. Performed By: #### 2 086228, 8169957, 6398363, 9123359, [id number] ####[facility] [address] [place] [address] Eosinophils/100 WBC (Bld) 4.7 % Normal 0.0-8.0 [facility] Comment on above: Order Comment: Order Added by Discern Expert. Performed By: #### 2 518389, 4460777, 6582202, 6679266, 55517840 ####[facility] [address] [place] [address] Eosinophils/Leukocyt es Auto (Bld) [Pure # fraction] 0.5 E9/L Normal 0.0-0.5 [facility] Comment on above: Order Comment: Order Added by Discern Expert. Performed By: #### 2 027883, 4949382, 1494877, 9689748, 38081347 ####[facility] [address] [place] [address] Lymphocytes/100 WBC (Bld) 41.3 % Normal 14.0-50.0 [facility] Comment on above: Order Comment: Order Added by Discern Expert. Performed By: #### 2 094333, 9086035, 5911857, 0934816, 80267140 ####[facility] [address] [place] [address] Lymphocytes/Leukocyt es Auto (Bld) [Pure # fraction] 4.4 E9/L High 1.0-4.0 [facility] Comment on above: Order Comment: Order Added by Paddy Expert. Performed By: #### 2 541912, 8213310, 1409736, 3762455, 29506865 ####[address] [address] Monocytes/100 WBC (Bld) 6.3 % Normal 4.0-14.0 [facility] Comment on above: Order Comment: Order Added by Paddy Expert. Performed By: #### 2 677322, 6689653, 6510247, 4398550, 26502417 ####[address] [address] Monocytes/Leukocytes Auto (Bld) [Pure # fraction] 0.7 E9/L Normal 0.2-1.0 [facility] Comment on above: Order Comment: Order Added by Paddy Expert. Performed By: #### 2 572396, 1891924, 1180615, 3133313, 38129702 ####[address] [place] [address] Neutrophils/100 WBC (Bld) 47.3 % Normal 36.0-75.0 [facility] Comment on above: Order Comment: Order Added by Paddy Expert. Performed By: #### 2 010994, 7236301, 3335442, 3564625, 53118383 ####[facility] [address] [place] [address] Neutrophils/Leukocyt es Auto (Bld) [Pure # fraction] 5.0 E9/L Normal 2.0-7.5 [facility] Comment on above: Order Comment: Order Added by Discern Expert. Performed By: #### 2 035701, 8901401, 6515142, 2413410, 45235959 ####[facility] [address] [place] [address] CBC w/ Auto Diffon Erythrocyte distribution width (RBC) [Ratio] 14.2 % Normal 10.9-14.2 [facility] Comment on above: Order Comment: [facility]; waiting to receive specimen, [id number] 02/25/2023 09:48:05 EDT Performed By: #### 2 730187, 9699166, 4794873, 1479197, 88870822 ####[facility] [address] [place] [address] Hematocrit (Bld) [Volume fraction] 41.8 % Normal 34.0-46.0 [facility] Comment on above: Order Comment: [facility]; waiting to receive specimen, [id number] 02/25/2023 09:48:05 EDT Performed By: #### 2 574543, 2452064, 5123107, 1695362, 03716423 ####[facility] [address] [place] [address] Hemoglobin (Bld) [Mass/Vol] 13.6 g/dL Normal 12.0-16.0 [facility] Comment on above: Order Comment: [facility]; waiting to receive specimen, [id number] 02/25/2023 09:48:05 EDT Performed By: #### 2 533000, 9173881, 1403600, 1290846, 26426935 ####[facility] [address] [place] [address] MCH (RBC) [Entitic mass] 27.8 pg Normal 27.0-34.0 [facility] Comment on above: Order Comment: [facility]; waiting to receive specimen, [id number] 02/25/2023 09:48:05 EDT Performed By: #### 2 536519, 0515388, 0514240, 6043075, 79610105 ####[facility] [address] [place] [address] MCHC (RBC) [Mass/Vol] 32.6 g/dL Normal 31.4-36.0 [facility] Comment on above: Order Comment: [facility]; waiting to receive specimen, [id number] 02/25/2023 09:48:05 EDT Performed By: #### 2 459126, 5451985, 9322279, 0577883, 22759798 ####[facility] [address] [place] [address] MCV (RBC) [Entitic vol] 85.1 fL Normal 80.0-100.0 [facility] Comment on above: Order Comment: [facility]; waiting to receive specimen, [id number] 02/25/2023 09:48:05 EDT Performed By: #### 2 704459, 2631045, 0911478, 4574493, 08264269 ####[facility] [address] [place] [address] Platelet mean volume (Bld) [Entitic vol] 7.8 fL Normal 6.4-10.8 [facility] Comment on above: Order Comment: [facility]; waiting to receive specimen, [id number] 02/25/2023 09:48:05 EDT Performed By: #### 2 037640, 6723369, 3760503, 0216759, 57267473 ####[facility] [address] [place] [address] Platelets (Bld) [#/Vol] 389.0 E9/L Normal 150.0-500.0 [facility] Comment on above: Order Comment: [facility]; waiting to receive specimen, [id number] 02/25/2023 09:48:05 EDT Performed By: #### 2 571277, 6809259, 4981243, 6561212, 62851972 ####[facility] [address] [place] [address] RBC (Bld) [#/Vol] 4.9 E12/L Normal 4.3-5.9 [facility] Comment on above: Order Comment: [facility]; waiting to receive specimen, [id number] 02/25/2023 09:48:05 EDT Performed By: #### 2 920649, 1817540, 6781547, 5691072, 93475836 ####[facility] [address] [place] [address] WBC corrected for nucl RBC Auto (Bld) [#/Vol] 10.6 E9/L Normal 4.0-11.0 [facility] Comment on above: Order Comment: [facility]; waiting to receive specimen, [id number] 02/25/2023 09:48:05 EDT Performed By: #### 2 662667, 6649383, 8288762, 9105572, 94688195 ####[facility] [address] [place] [address] CHEMISTRYOrdered By: SYSTEM SYSTEM on 02-25-2023 Albumin [Mass/Vol] 4.1 g/dL Normal 3.3 - 5.0 gm/dL [facility] Albumin/Globulin [Mass ratio] 1.2 {ratio} Normal 1.1 - 2.2 [facility] ALP [Catalytic activity/Vol] 78 [iU]/d Normal 21 - 98 Int._Unit/L [facility] ALT No additional P-5'-P [Catalytic activity/Vol] 18 [iU]/d Normal 6 - 46 Int._Unit/L [facility] Anion gap [Moles/Vol] 8 mmol/L Normal 6 - 16 mEq/L [facility] AST [Catalytic activity/Vol] 20 [iU]/d Normal 5 - 43 Int._Unit/L [facility] Bilirubin [Mass/Vol] 0.1 mg/dL Normal 0.0 - 1.1 mg/dL [facility] Calcium [Mass/Vol] 9.6 mg/dL Normal 8.9 - 11.1 mg/dL [facility] Chloride [Moles/Vol] 108 mmol/L Normal 101 - 111 mmol/ L [facility] Cholesterol [Mass/Vol] 279 mg/dL High 120 - 200 mg/dL [facility] Cholesterol in HDL [Mass/Vol] 78 mg/dL Invalid Interpretation Code [facility] Comment on above: Interpretive Data: H DL > or equal to 60 mg/dL: Low cardiovascular risk HDL < 40 mg/dL : High cardiovascular risk Cholesterol in LDL [Mass/Vol] 187 mg/dL High <=129mg/dL [facility] Cholesterol in VLDL [Mass/Vol] 28 mg/dL Normal 7 - 40 mg/dL [facility] CO2 [Moles/Vol] 26 mmol/L Normal 21 - 31 mmol/L [facility] Creatinine [Mass/Vol] 1.1 mg/dL Normal 0.5 - 1.3 mg/dL [facility] GFR/1.73 sq M.predicted among non-blacks MDRD (S/P/Bld) [Vol rate/Area] 56 mL/min/1.73 m2 Low >=59mL/min/1.73 m2 [facility] Chem S Comment on above: Interpretive Data: C hronic kidney disease could be indicated at eGFR's of less than 60 mL/min/1.73m2. Kidney failure is indicated at less than 15 mL/min/1.73m2. Globulin (S) [Mass/Vol] 3.5 g/dL Normal 1.4 - 4.0 gm/dL [facility] Remisol Glucose [Mass/Vol] 106 mg/dL Normal 55 - 199 mg/dL [facility] Comment on above: Interpretive Data: I f this glucose result represents a fasting glucose, interpretation should refer to the following reference range: 55-99 mg/dL Potassium [Moles/Vol] 4.4 mmol/L Normal 3.5 - 5.3 mmol/L [facility] Protein [Mass/Vol] 7.6 g/dL Normal 6.0 - 7.8 gm/dL [facility] Sodium [Moles/Vol] 138 mmol/L Normal 135 - 145 mmol/L [facility] Triglyceride [Mass/Vol] 139 mg/dL Normal <=149mg/dL [facility] Urea nitrogen [Mass/Vol] 18 mg/dL Normal 5 - 21 mg/dL [facility] Urea nitrogen/Creatinine [Mass ratio] 16 mg/mg Normal - [facility] Remisol CMPon 02-25-2023 Albumin [Mass/Vol] 4.1 g/dL Normal 3.3-5.0 [facility] Comment on above: Performed By: #### 2 733132, 7190112, 4395751, 2389871, 45645608 ####[facility] [address] [place] [address] Albumin/Globulin (S) [Mass conc ratio] 1.2 Normal 1.1-2.2 [facility] Comment on above: Performed By: #### 2 002265, 2791892, 1800934, 9285497, 98368585 ####[facility] [address] [place] [address] ALP [Catalytic activity/Vol] 78 Int._Unit/L Normal 21-98 [facility] Comment on above: Performed By: #### 2 717199, 9868229, 3056430, 0289122, 01251919 ####[facility] [address] [place] [address] ALT No additional P-5'-P [Catalytic activity/Vol] 18 Int._Unit/L Normal 6-46 [facility] Comment on above: Performed By: #### 2 789578, 8598194, 8494279, 8562482, 11886547 ####[facility] [address] [place] [address] Anion gap [Moles/Vol] 8 mmol/L Normal 6-16 [facility] Comment on above: Performed By: #### 2 197802, 5672262, 1118505, 4506914, 50169508 ####[facility] [address] [place] [address] AST [Catalytic activity/Vol] 20 Int._Unit/L Normal 5-43 [facility] Comment on above: Performed By: #### 2 437508, 7725056, 0131138, 9908871, 73199949 ####[facility] [address] [place] [address] Bilirubin [Mass/Vol] 0.1 mg/dL Normal 0.0-1.1 [facility] Comment on above: Performed By: #### 2 233861, 9148125, 0109330, 3061343, 58452510 ####[facility] [address] [place] [address] Calcium [Mass/Vol] 9.6 mg/dL Normal 8.9-11.1 [facility] Comment on above: Performed By: #### 2 472998, 7525884, 0887745, 1334516, 69860874 ####[facility] [address] [place] [address] Chloride [Moles/Vol] 108 mmol/L Normal 101-111 [facility] Comment on above: Performed By: #### 2 959996, 7467759, 1467241, 3288492, 19379781 ####[facility] [address] [place] [address] CO2 [Moles/Vol] 26 mmol/L Normal 21-31 [facility] Comment on above: Performed By: #### 2 040688, 8808539, 8566738, 6582042, 45011145 ####[facility] [address] [place] [address] Creatinine [Mass/Vol] 1.1 mg/dL Normal 0.5-1.3 [facility] Comment on above: Performed By: #### 2 687363, 2915431, 2405218, 9736173, 81971504 ####[facility] [address] [place] [address] Globulin (S) [Mass/Vol] 3.5 g/dL Normal 1.4-4.0 [facility] Comment on above: Performed By: #### 2 253240, 2758290, 2877073, 9940560, 48604233 ####[facility] [address] [place] [address] Glucose [Mass/Vol] 106 mg/dL Normal 55-199 [facility] Comment on above: Result Comment: If t his glucose result represents a fasting glucose, interpretation should refer to the following reference range: 55-99 mg/dL Performed By: #### 2 671390, 3098636, 7689131, 0403664, 89830715 ####[facility] [address] [place] [address] Potassium [Moles/Vol] 4.4 mmol/L Normal 3.5-5.3 [facility] Comment on above: Performed By: #### 2 230561, 9868363, 2239400, 6287723, 72311535 ####[facility] [address] [place] [address] Protein [Mass/Vol] 7.6 g/dL Normal 6.0-7.8 [facility] Comment on above: Performed By: #### 2 857184, 5552656, 5076869, 0881952, 79838333 ####[facility] [address] [place] [address] Sodium [Moles/Vol] 138 mmol/L Normal 135-145 [facility] Comment on above: Performed By: #### 2 172804, 8387694, 8337925, 1038827, 05008178 ####[facility] [address] [place] [address] Urea nitrogen [Mass/Vol] 18 mg/dL Normal 5-21 [facility] Comment on above: Performed By: #### 2 363007, 5016603, 6919440, 3137394, 78331780 ####[facility] [address] [place] [address] Urea nitrogen/Creatinine [Mass ratio] 16 No Units Normal 10-20 [facility] Comment on above: Performed By: #### 2 757279, 1673923, 5770611, 6609491, 31380641 ####[facility] [address] [place] [address] HEMATOLOGYOrdered By: SYSTEM SYSTEM on 02-25-2023 Basophils/100 WBC (Bld) 0.4 % Normal 0.0 - 2.0 % [facility] HemeAutoSS Basophils/Leukocytes Auto (Bld) [Pure # fraction] 0.0 E9/L Normal 0.0 - 0.2 E9/L [facility] HemeAutoSS Eosinophils/100 WBC (Bld) 4.7 % Normal 0.0 - 8.0 % [facility] HemeAutoSS Eosinophils/Leukocyt es Auto (Bld) [Pure # fraction] 0.5 E9/L Normal 0.0 - 0.5 E9/L [facility] HemeAutoSS Lymphocytes/100 WBC (Bld) 41.3 % Normal 14.0 - 50.0 % [facility] HemeAutoSS Lymphocytes/Leukocyt es Auto (Bld) [Pure # fraction] 4.4 E9/L High 1.0 - 4.0 E9/L [facility] HemeAutoSS Monocytes/100 WBC (Bld) 6.3 % Normal 4.0 - 14.0 % [facility] HemeAutoSS Monocytes/Leukocytes Auto (Bld) [Pure # fraction] 0.7 E9/L Normal 0.2 - 1.0 E9/L [facility]eAutoSS Neutrophils/100 WBC (Bld) 47.3 % Normal 36.0 - 75.0 % [facility] HemeAutoSS Neutrophils/Leukocyt es Auto (Bld) [Pure # fraction] 5.0 E9/L Normal 2.0 - 7.5 E9/L [facility] HemeAutoSS HEMATOLOGYOrdered By: Josefina Abdullahi on 02-25-2023 Erythrocyte distribution width (RBC) [Ratio] 14.2 % Normal 10.9 - 14.2 % [facility] HemeAutoSS Hematocrit (Bld) [Volume fraction] 41.8 % Normal 34.0 - 46.0 % [facility] HemeAutoSS Hemoglobin (Bld) [Mass/Vol] 13.6 g/dL Normal 12.0 - 16.0 gm/dL [facility] HemeAutoSS MCH (RBC) [Entitic mass] 27.8 pg Normal 27.0 - 34.0 pg [facility] HemeAutoSS MCHC (RBC) [Mass/Vol] 32.6 g/dL Normal 31.4 - 36.0 gm/dL [facility] HemeAutoSS MCV (RBC) [Entitic vol] 85.1 fL Normal 80.0 - 100.0 fL [facility] HemeAutoSS Platelet mean volume (Bld) [Entitic vol] 7.8 fL Normal 6.4 - 10.8 fL [facility] HemeAutoSS Platelets (Bld) [#/Vol] 389.0 E9/L Normal 150.0 - 500.0 E9/L [facility] HemeAutoSS RBC (Bld) [#/Vol] 4.9 E12/L Normal 4.3 - 5.9 E12/L [facility] HemeAutoSS WBC corrected for nucl RBC Auto (Bld) [#/Vol] 10.6 E9/L Normal 4.0 - 11.0 E9/L [facility] HemeAutoSS Lipid Panelon 02-25-2023 Cholesterol [Mass/Vol] 279 mg/dL High 120-200 [facility] Comment on above: Performed By: #### 2 162563, 1254168, 6815598, 7940389, 02329614 ####[facility] [address] [place] [address] Cholesterol in HDL [Mass/Vol] 78 mg/dL Invalid Interpretation Code [facility] Comment on above: Result Comment: HDL > or equal to 60 mg/dL: Low cardiovascular risk HDL < 40 mg/dL : High cardiovascular risk Performed By: #### 2 133770, 7402446, 1991906, 6965193, 01515027 ####[facility] [address] [place] [address] Cholesterol in LDL [Mass/Vol] 187 mg/dL High <=129 [facility] Comment on above: Performed By: #### 2 355856, 1251956, 3977846, 4077210, 94822381 ####[facility] [address] [place] [address] Cholesterol in VLDL [Mass/Vol] 28 mg/dL Normal 7-40 [facility] Comment on above: Performed By: #### 2 [id number] ####[facility] [address] [place] [address] Triglyceride [Mass/Vol] 139 mg/dL Normal <=149 [facility] Comment on above: Performed By: #### 2 [id number] ####[facility] [address] [place] [address] Nurse Consultation Noteon Nurse Consultation Note Reason for Visit Pt presents for labs, BP check and to flush right ear. Cora Branham CNP looked in pt right ear and states ok to flush it out. Assessment/Plan 1. Hyperlipidemia (E78.5: Hyperlipidemia, unspecified) 2. Impaired fasting glucose (R73.01: Impaired fasting glucose) Medications No active medications Allergies Tape (Blister) Immunizations Vaccine Date Status Comments influenza virus vaccine, inactivated - Not Given Postpone due to refusal influenza virus vaccine, inactivated - Not Given Patient Refuses pt is getting this at a later date SARS-CoV-2 (COVID-19) mRNA-1273 vaccine 08/06/2020 Recorded SARS-CoV-2 (COVID-19) mRNA-1273 vaccine 07/09/2020 Recorded influenza virus vaccine, inactivated 03/03/2020 Given zoster vaccine, inactivated 03/10/2019 Recorded influenza virus vaccine, inactivated 01/26/2019 Recorded zoster vaccine, inactivated 12/16/2018 Recorded influenza virus vaccine, inactivated 03/16/2018 Recorded influenza virus vaccine, inactivated 12/11/2016 Recorded influenza virus vaccine, inactivated 02/10/2015 Recorded diphtheria/pertussis , acel/tetanus adult 04/04/2014 Recorded influenza virus vaccine, inactivated 04/04/2014 Recorded Normal [facility] eGFRon 02-25-2023 GFR/1.73 sq M.predicted among non-blacks MDRD (S/P/Bld) [Vol rate/Area] 56 mL/min/1.73 m2 Low >=59 [facility] Comment on above: Order Comment: Order added by Discern Expert. Result Comment: Director Of Assessment jaja kidney disease could be indicated at eGFR's of less than 60 mL/min/1.73m2. Kidney failure is indicated at less than 15 mL/min/1.73m2. Performed By: #### 2 [id number] ####[facility] [address] [place] [address] XR KUB 1 VIEWon 11-09-2021 XR KUB 1 VIEW EXAMINATION: XR KUB 1 VIEW HISTORY: Urolithiasis COMPARISON: 07/20/2021 FINDINGS: KIDNEY/URETER - RIGHT: No visible renal or ureteral calcifications. KIDNEY/URETER - LEFT: Stable 6 mm nephrolith PELVIS: No visible ureteral calcifications. Any visible calcifications favor phleboliths. BOWEL: No abnormal dilation or deviation. Moderate stool in the right colon BONES: No acute abnormality. OTHER: Negative. No abnormal gaseous collections. IMPRESSION: Stable left nephrolithiasis Electronically authenticated by: REI CLARK Date: 2021-11-09 07:09 Normal [facility] PROTIMEon 11-06-2021 INR Coag (PPP) [Relative time] {INR} Normal [facility] Comment on above: Performed By: #### P TT, PT #### [facility] [address] [place] [address] Dr. Mayco Feldman INR GUIDELINES SEE BELOW Normal [facility] Comment on above: Result Comment: KEISHA RED INR: 2.0 - 3.0 CONDITIONS NOT LISTED BELOW 2.5 - 3.5 FOR PROSTHETIC HEART VALVE REPLACEMENT 2.5 - 3.5 RECURRENT THROMBOSIS Performed By: #### P TT, PT #### [facility] [address] [place] [address] Dr. Mayco Feldman PT Coag (PPP) [Time] 10.0 s Normal 9.0-11.6 [facility] Comment on above: Performed By: #### P TT, PT #### [facility] [address] [place] [address] Dr. Mayco Feldman PTTon 11-06-2021 aPTT Coag (Bld) [Time] 26.5 s Normal 22.3-36.2 [facility] Comment on above: Performed By: #### P TT, PT #### [facility] [address] [place] [address] Dr. Mayco Feldman CHEMISTRYOrdered By: SYSTEM SYSTEM on 10-18-2021 Albumin [Mass/Vol] 4.4 g/dL Normal 3.3 - 5.0 gm/dL [facility] Albumin/Globulin [Mass ratio] 1.2 {ratio} Normal 1.1 - 2.2 [facility] ALP [Catalytic activity/Vol] 87 [iU]/d Normal 21 - 98 Int._Unit/L [facility] ALT No additional P-5'-P [Catalytic activity/Vol] 33 [iU]/d Normal 6 - 46 Int._Unit/L [facility] Anion gap [Moles/Vol] 15 mmol/L Normal 6 - 16 mEq/L [facility] AST [Catalytic activity/Vol] 29 [iU]/d Normal 5 - 43 Int._Unit/L [facility] Bilirubin [Mass/Vol] 0.6 mg/dL Normal 0.0 - 1.1 mg/dL [facility] Bilirubin.direct [Mass/Vol] 0.1 mg/dL Normal 0.1 - 0.4 mg/dL [facility] Bilirubin.indirect [Mass or moles/Vol] 0.5 mg/dL Normal 0.1 - 0.9 mg/dL [facility] Calcium [Mass/Vol] 9.4 mg/dL Normal 8.9 - 11.1 mg/dL [facility] Chloride [Moles/Vol] 100 mmol/L Low 101 - 111 mmol/ L [facility] CO2 [Moles/Vol] 26 mmol/L Normal 21 - 31 mmol/L [facility] Creatinine [Mass/Vol] 1.2 mg/dL Normal 0.5 - 1.3 mg/dL [facility] GFR/1.73 sq M.predicted among blacks MDRD (S/P/Bld) [Vol rate/Area] 55 mL/min/1.73 m2 Low >=59mL/min/1.73 m2 FT Chem S GFR/1.73 sq M.predicted among non-blacks MDRD (S/P/Bld) [Vol rate/Area] 45 mL/min/1.73 m2 Low >=59mL/min/1.73 m2 [facility] Chem S Globulin (S) [Mass/Vol] 3.7 g/dL Normal 1.4 - 4.0 gm/dL [facility] Glucose [Mass/Vol] 125 mg/dL Normal 55 - 199 mg/dL [facility] Lipase [Catalytic activity/Vol] 25 U/L Normal 13 - 58 unit/L [facility] Potassium [Moles/Vol] 4.5 mmol/L Normal 3.5 - 5.3 mmol/L [facility] Protein [Mass/Vol] 8.1 g/dL High 6.0 - 7.8 gm/dL [facility] Rem[facility] Sodium [Moles/Vol] 136 mmol/L Normal 135 - 145 mmol/L [facility] Urea nitrogen [Mass/Vol] 16 mg/dL Normal 5 - 21 mg/dL [facility] Urea nitrogen/Creatinine [Mass ratio] 13 mg/mg Normal 10 - 20 [facility] HEMATOLOGYOrdered By: SYSTEM SYSTEM on 10-18-2021 Basophils/100 WBC (Bld) 0.4 % Normal 0.0 - 2.0 % [facility] HemeAutoSS Basophils/Leukocytes Auto (Bld) [Pure # fraction] 0.1 E9/L Normal 0.0 - 0.2 E9/L [facility]Auto[facility] Eosinophils/100 WBC (Bld) 2.0 % Normal 0.0 - 8.0 % [facility]eAuto[facility] Eosinophils/Leukocyt es Auto (Bld) [Pure # fraction] 0.3 E9/L Normal 0.0 - 0.5 E9/L [facility]eAutoSS Lymphocytes/100 WBC (Bld) 17.0 % Normal 14.0 - 50.0 % [facility]eAutoSS Lymphocytes/Leukocyt es Auto (Bld) [Pure # fraction] 2.4 E9/L Normal 1.0 - 4.0 E9/L [facility]eAutoSS Monocytes/100 WBC (Bld) 6.2 % Normal 4.0 - 14.0 % [facility]eAutoSS Monocytes/Leukocytes Auto (Bld) [Pure # fraction] 0.9 E9/L Normal 0.2 - 1.0 E9/L [facility]eAutoSS Neutrophils/100 WBC (Bld) 74.4 % Normal 36.0 - 75.0 % [facility]eAutoSS Neutrophils/Leukocyt es Auto (Bld) [Pure # fraction] 10.4 E9/L High 2.0 - 7.5 E9/L [facility] HEMATOLOGYOrdered By: Gardenia Gamboa on 10-18-2021 Erythrocyte distribution width (RBC) [Ratio] 14.2 % Normal 10.9 - 14.2 % [facility] Hematocrit (Bld) [Volume fraction] 41.5 % Normal 34.0 - 46.0 % [facility] Hemoglobin (Bld) [Mass/Vol] 13.8 g/dL Normal 12.0 - 16.0 gm/dL [facility] MCH (RBC) [Entitic mass] 27.7 pg Normal 27.0 - 34.0 pg [facility] MCHC (RBC) [Mass/Vol] 33.3 g/dL Normal 31.4 - 36.0 gm/dL [facility] MCV (RBC) [Entitic vol] 83.4 fL Normal 80.0 - 100.0 fL [facility] Platelet mean volume (Bld) [Entitic vol] 7.5 fL Normal 6.4 - 10.8 fL [facility] Platelets (Bld) [#/Vol] 318.0 E9/L Normal 150.0 - 500.0 E9/L [facility]AutoSS RBC (Bld) [#/Vol] 5.0 E12/L Normal 4.3 - 5.9 E12/L [facility]Auto[facility] WBC corrected for nucl RBC Auto (Bld) [#/Vol] 13.9 E9/L High 4.0 - 11.0 E9/L [facility] URINALYSISOrdered By: Malcolm daniel on 10-18-2021 Bacteria LM Ql (Urine sed) 2+ /HPF Invalid Interpretation Code Trace/HPF [facility] UA Auto SS Bilirubin Ql (U) Negative (10/18/21 7:30 PM) Normal Negative [facility] UA Auto SS Clarity (U) Clear (10/18/21 7:30 PM) Normal Clear [facility] UA Auto SS Color (U) Yellow (10/18/21 7:30 PM) Normal Yellow [facility] UA Auto SS Crystals LM Ql (Urine sed) Present (10/18/21 7:30 PM) Normal [facility] UA Auto SS Epithelial cells.squamous LM.HPF (Urine sed) [#/Area] 3-4 /HPF Normal 0-2/HPF [facility] UA Auto SS Glucose Test strip (U) [Mass/Vol] Negative (10/18/21 7:30 PM) Normal Negative [facility] UA Auto SS Hemoglobin Ql (U) Trace *ABN* (10/18/21 7:30 PM) Invalid Interpretation Code Negative [facility]A Auto SS Ketones (U) [Mass/Vol] Negative (10/18/21 7:30 PM) Normal Negative [facility] UA Auto SS [place].plasma/Lithi um.RBC (Bld) [Mass ratio] 0-3 /HPF Normal 0-3/HPF [facility] UA Auto SS Mucus Ql (Urine sed) Trace (10/18/21 7:30 PM) Normal [facility] UA Auto SS Nitrite Ql (U) Negative (10/18/21 7:30 PM) Normal Negative [facility] UA Auto SS pH (U) 7.0 *NA* (10/18/21 7:30 PM) Invalid Interpretation Code 5.0 - 9.0 [facility] UA Auto SS Protein (U) [Mass/Vol] Negative (10/18/21 7:30 PM) Normal Negative [facility] UA Auto SS Specific gravity (U) [Rel density] 1.015 *NA* (10/18/21 7:30 PM) Invalid Interpretation Code 1.005 - 1.030 [facility] UA Auto SS UA Spec Desc Clean Catch (10/18/21 7:30 PM) Normal [facility] UA Auto SS Urobilinogen Qn (U) [id number] {Rachel'U}/dL Normal 0.0 - 1.0 EU/dL [facility] UA Auto SS WBC Auto Ql (U) Trace *ABN* (10/18/21 7:30 PM) Invalid Interpretation Code Negative [facility] UA Auto SS WBC LM.HPF (Urine sed) [#/Area] 6-15 /HPF Invalid Interpretation Code 0-5/HPF [facility] UA Auto SS XR KUB 1 VIEWon 07-20-2021 XR KUB 1 VIEW EXAMINATION: XR KUB 1 VIEW HISTORY: Urolithiasis COMPARISON: No relevant comparison available. FINDINGS: KIDNEY/URETER - RIGHT: No visible renal or ureteral calcifications. KIDNEY/URETER - LEFT: 6 mm stone within inferior pole of kidney. PELVIS: No convincing ureteral stones. Round pelvic calcifications favor phleboliths. BOWEL: No abnormal dilation or deviation. BONES: No acute abnormality. OTHER: Negative. No abnormal gaseous collections. IMPRESSION: 1. Left nephrolithiasis. 2. Evaluation of kidneys is limited by dense overlying bowel content. Electronically authenticated by: OUMOU URIBE Date: 2021-07-20 11:07 Normal [facility] SARS-CoV-2 (COVID-19) RNA SUJATA+probe Ql (Unsp spec) Not detected Normal NOT DETECTED [facility] Comment on above: Result Comment: This test is not yet approved or cleared by the [place] FDA. When there are no FDA-approved or cleared tests available, and other criteria are met, FDA can make tests available under an emergency access mechanism called an Emergency Use Authorization (EUA). The EUA for this test is supported by the [place] of Health and Human Service's (HHS's) declaration that circumstances exist to justify the emergency use of in vitro diagnostics for the detection and/or diagnosis of the virus that causes COVID-19. This EUA will remain in effect (meaning this test can be used) for the duration of the COVID-19 declaration justifying emergency of IVDs, unless it is terminated or revoked by FDA (after which the test may no longer be used). When diagnostic testing is negative, the possibility of a false negative should be considered in the context of a patient's recent exposures and the presence of clinical signs and symptoms consistent with SARS-CoV-2. Performed By: #### C VDTBH #### [facility] [address] [place] [address] Dr. Mayco Feldman PROTIMEon 07-14-2021 INR Coag (PPP) [Relative time] 0.95 {INR} Normal [facility] Comment on above: Performed By: #### P T, PTT #### [facility] [address] [place] [address] Dr. Mayco Feldman INR GUIDELINES SEE BELOW Normal [facility] Comment on above: Result Comment: KEISHA RED INR: 2.0 - 3.0 CONDITIONS NOT LISTED BELOW 2.5 - 3.5 FOR PROSTHETIC HEART VALVE REPLACEMENT 2.5 - 3.5 RECURRENT THROMBOSIS Performed By: #### P T, PTT #### [facility] [address] [place] [address] Dr. Mayco Feldman PT Coag (PPP) [Time] 10.3 s Normal 9.0-11.6 [facility] Comment on above: Performed By: #### P T, PTT #### [facility] [address] [place] [address] Dr. Mayco Feldman PTTon 07-14-2021 aPTT Coag (Bld) [Time] 26.4 s Normal 22.3-36.2 [facility] Comment on above: Performed By: #### P T, PTT #### [facility] [address] [place] [address] Dr. Mayco Feldman Vital Signs Date Time Vital Sign Value Performing Clinician Facility 02-18-2024 11:06-0400 Blood Pressure Location Marty Link [facility] 02-18-2024 11:06-0400 Diastolic blood pressure 70 mm[Hg] Marty Link [facility] 02-18-2024 11:06-0400 Heart rate 94 /min Marty Link [facility] 02-18-2024 11:06-0400 Respiratory rate 16 /min Marty Link [facility] 02-18-2024 11:06-0400 SaO2% (BldA) [Mass fraction] 95 % Marty Link [facility] 02-18-2024 11:06-0400 Systolic blood pressure 118 mm[Hg] Marty Link [facility] 01-30-2024 11:42-0400 Blood Pressure Location Marty Link [facility] 01-30-2024 11:42-0400 Diastolic blood pressure 84 mm[Hg] Marty Link [facility] 01-30-2024 11:42-0400 Heart rate 70 /min Marty Link [facility] 01-30-2024 11:42-0400 SaO2% (BldA) [Mass fraction] 99 % Marty Link [facility] 01-30-2024 11:42-0400 Systolic blood pressure 138 mm[Hg] Marty Link [facility] 01-20-2024 13:00-0400 Blood Pressure Location Marlin Lue [facility] 01-20-2024 13:00-0400 Diastolic blood pressure 88 mm[Hg] Marlin Lue [facility] 01-20-2024 13:00-0400 Heart rate 90 /min Marlin Lue [facility] 01-20-2024 13:00-0400 Respiratory rate 19 /min Marlin Lue [facility] 01-20-2024 13:00-0400 Systolic blood pressure 151 mm[Hg] Marlin Lue [facility] 12-27-2023 14:00-0400 Diastolic blood pressure 77 mm[Hg] [facility] 12-27-2023 14:00-0400 Mean blood pressure 97 mm[Hg] [facility] 12-27-2023 14:00-0400 SaO2% (BldA) [Mass fraction] 96 % [facility] 12-27-2023 14:00-0400 Systolic blood pressure 138 mm[Hg] [facility] 12-27-2023 13:00-0400 Diastolic blood pressure 70 mm[Hg] [facility] 12-27-2023 13:00-0400 Heart rate 76 /min [facility] 12-27-2023 13:00-0400 Mean blood pressure 91 mm[Hg] [facility] 12-27-2023 13:00-0400 Respiratory rate 16 /min [facility] 12-27-2023 13:00-0400 Systolic blood pressure 133 mm[Hg] [facility] 12-27-2023 12:30-0400 Diastolic blood pressure 73 mm[Hg] [facility] 12-27-2023 12:30-0400 Heart rate 75 /min [facility] 12-27-2023 12:30-0400 Mean blood pressure 96 mm[Hg] [facility] 12-27-2023 12:30-0400 Respiratory rate 17 /min [facility] 12-27-2023 12:30-0400 SaO2% (BldA) [Mass fraction] 94 % [facility] 12-27-2023 12:30-0400 Systolic blood pressure 143 mm[Hg] [facility] 12-27-2023 10:52-0400 Body temperature 97.88 [degF] [facility] 12-27-2023 10:52-0400 Heart rate 88 /min [facility] 09-10-2023 10:46-0400 Blood Pressure Location Marty Link [facility] 09-10-2023 10:46-0400 Diastolic blood pressure 86 mm[Hg] Marty Link [facility] 09-10-2023 10:46-0400 Heart rate 68 /min Marty Link [facility] 09-10-2023 10:46-0400 SaO2% (BldA) [Mass fraction] 98 % Marty Link [facility] 09-10-2023 10:46-0400 Systolic blood pressure 132 mm[Hg] Marty Link [facility] 08-14-2023 09:07-0400 Body temperature 97.52 [degF] STEFANY BECKHAM [facility] 08-14-2023 09:07-0400 Diastolic blood pressure 86 mm[Hg] STEFANY BECKHAM [facility] 08-14-2023 09:07-0400 Heart rate 87 /min STEFANY BECKHAM [facility] 08-14-2023 09:07-0400 Respiratory rate 16 /min TACOMA BECKHAM [facility] 08-14-2023 09:07-0400 SaO2% (BldA) [Mass fraction] 96 % TACOMA BECKHAM [facility] 08-14-2023 09:07-0400 Systolic blood pressure 132 mm[Hg] STEFANY LÓPEZTIZ [facility] 08-09-2023 13:26-0400 Diastolic blood pressure 88 mm[Hg] Marty Link [facility] 08-09-2023 13:26-0400 Mean blood pressure 106 mm[Hg] Marty Link [facility] 08-09-2023 13:26-0400 Systolic blood pressure 142 mm[Hg] Marty Link [facility] 08-09-2023 12:51-0400 Blood Pressure Location Marty Link [facility] 08-09-2023 12:51-0400 Diastolic blood pressure 94 mm[Hg] Marty Link [facility] 08-09-2023 12:51-0400 Heart rate 62 /min Marty Link [facility] 08-09-2023 12:51-0400 SaO2% (BldA) [Mass fraction] 98 % Marty Link [facility] 08-09-2023 12:51-0400 Systolic blood pressure 152 mm[Hg] Marty Link [facility] 07-04-2023 09:22-0500 Blood Pressure Location Mohadrianad Sukhdeepuchli [facility] 07-04-2023 09:22-0500 Diastolic blood pressure 81 mm[Hg] Mohamad Mouchli [facility] 07-04-2023 09:22-0500 Heart rate 84 /min Mohamad Mouchli [facility] 07-04-2023 09:22-0500 Respiratory rate 16 /min Mohamad Mouchli [facility] 07-04-2023 09:22-0500 Systolic blood pressure 137 mm[Hg] Mohamad Mouchli [facility] 04-16-2023 08:45-0500 Diastolic blood pressure 88 mm[Hg] Nany Bret [facility] 04-16-2023 08:45-0500 Mean blood pressure 107 mm[Hg] Nany Bret [facility] 04-16-2023 08:45-0500 Systolic blood pressure 146 mm[Hg] Nany Bret [facility] 04-16-2023 08:37-0500 Blood Pressure Location Nany Bret [facility] 04-16-2023 08:37-0500 Body temperature 97.52 [degF] Nany Bret [facility] 04-16-2023 08:37-0500 Diastolic blood pressure 86 mm[Hg] Nany Bret [facility] 04-16-2023 08:37-0500 Heart rate 77 /min Nany Queen [facility] 04-16-2023 08:37-0500 Systolic blood pressure 151 mm[Hg] Nany Queen [facility] 02-25-2023 09:02-0400 Diastolic blood pressure 82 mm[Hg] CORA BRANHAM [facility] 02-25-2023 09:02-0400 Mean blood pressure 98 mm[Hg] CORA LIZ [facility] 02-25-2023 09:02-0400 Systolic blood pressure 130 mm[Hg] CORA ARORAANN [facility] 02-17-2023 15:10-0400 Body temperature 98.24 [degF] Joseph Henry [facility] 02-17-2023 15:10-0400 Diastolic blood pressure 95 mm[Hg] Joseph Henry [facility] 02-17-2023 15:10-0400 Heart rate 78 /min Joseph Henry [facility] 02-17-2023 15:10-0400 Respiratory rate 16 /min Joseph Henry [facility] 02-17-2023 15:10-0400 SaO2% (BldA) [Mass fraction] 98 % Joseph Henry [facility] 02-17-2023 15:10-0400 Systolic blood pressure 162 mm[Hg] Joseph Henry [facility] 02-13-2023 14:24-0400 Blood Pressure Location CORARaisa BRANHAM [facility] 02-13-2023 14:24-0400 Body temperature 98.78 [degF] CORA LIZ [facility] 02-13-2023 14:24-0400 Diastolic blood pressure 70 mm[Hg] CORA LIZ [facility] 02-13-2023 14:24-0400 Heart rate 94 /min CROARaisa BRANHAM [facility] 02-13-2023 14:24-0400 SaO2% (BldA) [Mass fraction] 97 % CORA ARORAANN [facility] 02-13-2023 14:24-0400 Systolic blood pressure 138 mm[Hg] CORA LIZ [facility] 06-14-2022 09:23-0500 Blood Pressure Location Alphonse Alas [facility] 06-14-2022 09:23-0500 Diastolic blood pressure 88 mm[Hg] Alphonse Alas [facility] 06-14-2022 09:23-0500 Heart rate 92 /min Alphonse Floress [facility] 06-14-2022 09:23-0500 Systolic blood pressure 149 mm[Hg] Alphonse Floress [facility] 02-15-2022 16:52-0400 Blood Pressure Location Soraya Klonk [facility] 02-15-2022 16:52-0400 Diastolic blood pressure 80 mm[Hg] Soraya Klonk [facility] 02-15-2022 16:52-0400 Heart rate 92 /min Soraya Klonk [facility] 02-15-2022 16:52-0400 SaO2% (BldA) [Mass fraction] 96 % Soraya Klonk [facility] 02-15-2022 16:52-0400 Systolic blood pressure 132 mm[Hg] Soraya Klonk [facility] 11-10-2021 11:44-0400 Blood Pressure Location Soraya Klonk [facility] 11-10-2021 11:44-0400 Body temperature 97.88 [degF] Soraya Klonk [facility] 11-10-2021 11:44-0400 Diastolic blood pressure 96 mm[Hg] Soraya Klonk [facility] 11-10-2021 11:44-0400 Heart rate 105 /min Soraya Gurpreetonk [facility] 11-10-2021 11:44-0400 SaO2% (BldA) [Mass fraction] 96 % Soraya Klonk [facility] 11-10-2021 11:44-0400 Systolic blood pressure 164 mm[Hg] Soraya Klonk [facility] 11-01-2021 12:10-0400 Blood Pressure Location Gilberto MADRIGAL [facility] [place] 11-01-2021 12:10-0400 Diastolic blood pressure 74 mm[Hg] Gilberto MADRIGAL [facility] [place] 11-01-2021 12:10-0400 Heart rate 82 /min Gilberto MADRIGAL [facility] 11-01-2021 12:10-0400 Respiratory rate 16 /min Gilberto MADRIGAL [facility] 11-01-2021 12:10-0400 Systolic blood pressure 129 mm[Hg] Gilberto MADRIGAL [facility] 10-20-2021 09:43-0400 Blood Pressure Location Gilbert[facility]ary [facility]IGAL [facility] 10-20-2021 09:43-0400 Diastolic blood pressure 67 mm[Hg] Gilberto [facility]IGAL [facility] 10-20-2021 09:43-0400 Heart rate 93 /min [facility]IG[facility] 10-20-2021 09:43-0400 Respiratory rate 16 /min Gilberto [facility]ADRIGAL [facility] 10-20-2021 09:43-0400 Systolic blood pressure 122 mm[Hg] Gilberto MADRIGAL [facility] 10-18-2021 19:00-0400 Diastolic blood pressure 85 mm[Hg] Jovan Butterfielde [facility] 10-18-2021 19:00-0400 Mean blood pressure 108 mm[Hg] Joavn Deann [facility] 10-18-2021 19:00-0400 SaO2% (BldA) [Mass fraction] 95 % Jovan Deann [facility] 10-18-2021 18:00-0400 Diastolic blood pressure 94 mm[Hg] Jovan Butterfielde [facility] 10-18-2021 18:00-0400 Heart rate 73 /min Jovan Deann [facility] 10-18-2021 18:00-0400 Mean blood pressure 111 mm[Hg] Jovan Deann [facility] 10-18-2021 18:00-0400 Systolic blood pressure 146 mm[Hg] Jovan Butterfielde [facility] 10-18-2021 17:30-0400 Body temperature 98.06 [degF] Jovan Butterfielde [facility] 10-18-2021 17:30-0400 Diastolic blood pressure 92 mm[Hg] Jovan Deann [facility] 10-18-2021 17:30-0400 Heart rate 89 /min Jovan Butterfielde [facility] 10-18-2021 17:30-0400 Respiratory rate 16 /min Jovan Deann [facility] 10-18-2021 17:30-0400 SaO2% (BldA) [Mass fraction] 96 % Jovan Deann [facility] 10-18-2021 17:30-0400 Systolic blood pressure 153 mm[Hg] Jovan Deann [facility] Encounters Encounter Date Encounter Type Care Provider Facility Start: 02-23-2025 ambulatory Marty C Link Facility:[facility] Start: 02-18-2024 End: 02-18-2024 ambulatory Marty C Link Facility:[facility] Start: 02-18-2024 End: 02-18-2024 Patient encounter procedure Marty C Link [facility] Start: 02-18-2024 End: 02-18-2024 Well adult monitoring check done Marty C Link [facility] Start: 02-05-2024 End: 02-05-2024 ambulatory Marlin Smith Facility:[facility] Start: 02-05-2024 End: 02-05-2024 Off-Site Marlin Smith [facility] Start: 02-03-2024 End: 02-03-2024 ambulatory MD Greg Soni Facility:[facility] Start: 02-03-2024 End: 02-03-2024 Patient encounter procedure Marty C Link [facility] Start: 01-30-2024 End: 01-30-2024 ambulatory Marty C Link Facility:[facility] Start: 01-30-2024 End: 01-30-2024 Patient encounter procedure Marty C Link [facility] Start: 01-30-2024 End: 01-30-2024 Preprocedural examination done Marty C Link [facility] Start: 01-20-2024 End: 01-20-2024 ambulatory Marlin Smith Facility:[facility] Start: 01-20-2024 End: 01-20-2024 Lab Drop off Marlin Smith [facility] Start: 01-20-2024 End: 01-20-2024 ambulatory Marlin Smith Facility:[facility] Start: 01-20-2024 End: 01-20-2024 Patient encounter procedure Marlin Smith [facility] Start: 01-17-2024 End: 01-17-2024 ambulatory Marlin Smith Facility:[facility] Start: 01-17-2024 End: 01-17-2024 Patient encounter procedure Marlin Smith [facility] Start: 01-03-2024 End: 01-03-2024 Patient encounter procedure DO Marty Link Work Phone: [facility] Work Phone: Start: 01-03-2024 End: 01-03-2024 ambulatory DO Marty C Link Work Phone: [facility] Work Phone: Start: 12-27-2023 End: 12-27-2023 Emergency department patient visit Parag Camejoolvin [facility] Start: 10-11-2023 ambulatory Marty C Link Facility:[facility] Start: 09-10-2023 End: 09-10-2023 ambulatory Marty C Link Facility:[facility] Start: 09-10-2023 End: 09-10-2023 Patient encounter procedure Marty C Link [facility] Start: 08-26-2023 ambulatory Gilberto Holcomb ty:[facility] Start: 08-19-2023 ambulatory CORA BRANHAM Facility :[facility] Start: 08-14-2023 End: 08-14-2023 ambulatory STEFANY BECKHAM Facility:[facility] Start: 08-14-2023 End: 08-14-2023 Patient encounter procedure STEFANY BECKHAM [facility] Start: 08-09-2023 End: 08-09-2023 ambulatory Marty C Link Facility:[facility] Start: 08-09-2023 End: 08-09-2023 Patient encounter procedure Marty C Link [facility] Start: 07-04-2023 End: 07-04-2023 [facility]ulatory [facility] Start: 07-04-2023 End: 07-04-2023 Patient encounter procedure Miguel Ag [facility] Start: 06-18-2023 End: 06-18-2023 ambulatory Young Marcus Clarisanayeli Facility:CD:[id number] Start: 05-07-2023 End: 05-07-2023 ambulatory Nany Queen Facility:[facility] Start: 04-19-2023 End: 04-19-2023 ambulatory CORA BRANHAM Facility:[facility] Start: 04-19-2023 End: 04-19-2023 Patient encounter procedure CORA BRANHAM [facility] Start: 04-16-2023 End: 04-27-2023 Pre-admission assessment Nany Queen [facility] Start: 04-16-2023 End: 04-16-2023 ambulatory CORA BRANHAM Facility:[facility] Start: 04-16-2023 End: 04-16-2023 Patient encounter procedure Nany Queen [facility] Start: 02-25-2023 End: 02-25-2023 Lab Drop off CORA BRANHAM [facility] Start: 02-25-2023 End: 02-25-2023 ambulatory CORA BRANHAM Facility:[facility] Start: 02-25-2023 End: 02-25-2023 Patient encounter procedure CORA BRANHAM [facility] Start: 02-17-2023 End: 02-17-2023 Emergency department patient visit Joseph Henry [facility] Start: 02-13-2023 End: 02-13-2023 Well adult monitoring check done CORA Ruiz LIZ [facility] Start: 02-13-2023 End: 02-13-2023 Patient encounter procedure CORA BRANHAM [facility] Start: 01-01-2023 End: 01-01-2023 ambulatory PARK WORKER[employer]C Cornell Smith Work Phone: [facility] Work Phone: Start: 01-01-2023 End: 01-01-2023 Patient encounter procedure PARK WORKER-C Cornell Laredo Work Phone: [facility] Work Phone: Start: 12-03-2022 End: 12-03-2022 Patient encounter procedure Gilberto MADRIGAL [facility] Start: 06-14-2022 End: 06-14-2022 Patient encounter procedure Alphonse Alas [facility] [place] Start: 06-12-2022 End: 06-12-2022 Patient encounter procedure Gilberto MADRIGAL [facility] Start: 02-15-2022 End: 02-15-2022 Patient encounter procedure Soraya Hammer [facility] Start: 11-30-[address] GILBERTO MADRIGAL [facility] Start: 11-10-2021 End: 11-10-2021 Patient encounter procedure Soraya Hammer [facility] Start: 11-09-2021 Encounter for preprocedural laboratory examination DR GILBERTO MADIRGAL [facility] Start: 11-09-2021 End: 11-09-[address] GILBERTO MADRIGAL Facility:[facility] Start: 11-06-2021 End: 11-07-[address] GILBERTO MADRIGAL Facility:[facility] Start: 11-06-2021 End: 11-07-2021 Encounter for preprocedural laboratory examination DR GILBERTO MADRIGAL Facility:[facility] Start: 11-01-2021 End: 11-01-2021 Patient encounter procedure Gilberto MADRIGAL [facility] Start: 10-31-2021 End: 10-31-2021 Patient encounter procedure Gilberto MADRIGAL [facility] Start: 10-20-2021 End: 10-20-2021 Patient encounter procedure Gilberto MADRIGAL [facility] Start: 10-18-2021 End: 10-18-2021 Emergency department patient visit Jovan Zacarias [facility] Start: 08-02-2021 End: 08-02-2021 Patient encounter procedure Gilberto MADRIGAL [facility] Start: 07-20-2021 End: 07-20-[address] GILBERTO MADRIGAL Facility:[facility] Start: 07-19-2021 Encounter for preprocedural cardiovascular examination DR GILBERTO MADRIGAL [facility] Start: 07-19-2021 Encounter for preprocedural laboratory examination DR GILBERTO MADRIGAL [facility] Start: 07-17-[address] GILBERTO MADRIGAL [facility] Start: 07-14-2021 End: 07-15-[address] GILBERTO MADRIGAL Facility:[facility] Start: 07-14-2021 End: 07-15-2021 Encounter for preprocedural cardiovascular examination DR GILBERTO MADRIGAL Facility:[facility] Procedures Date Procedure Procedure Detail Performing Clinician Start: 02-03-2024 Electrocardiogram wi th exercise test [employer] Start: 01-03-2024 Screening mammograph y of bilateral breasts DO Marty [employer] Work Phone: Start: 01-01-2023 Screening mammograph y of bilateral breasts PARK WORKER[employer]C Cornell Smith Work Phone: Start: 04-13-2020 Release of tendon Rowdy villafuerte MADRIGAL Abdominal hysterectomy Polinari noy MADRIGAL Appendectomy Gilbertodary MADRIGAL C SECTION X2 Gilbertodary MADRIGAL Colonoscopy Gilbertodary MADRIGAL Comment on above: X2 Decompression of median nerve Gilberto KAITLIN Comment on above: LEFT Dilation and curetta ge of uterus Gilberto KAITLIN Laparoscopic cholecystectomy Gilberto KAITLIN Immunizations Immunization Date Immunization Notes Care Provider Aguilar wright 08-06-2020 SARS-CoV-2 (COVID-19 ) mRNA-1273 vaccine [facility] 07-09-2020 SARS-CoV-2 (COVID-19 ) mRNA-1273 vaccine [facility] 03-03-2020 influenza, injectabl e, quadrivalent, contains preservative Gilberto MADRIGAL [facility] 03-10-2019 zoster vaccine recombinant [facility] 01-26-2019 influenza virus vaccine, unspecified formulation [facility] 12-16-2018 zoster vaccine recombinant [facility] 03-16-2018 influenza virus vaccine, unspecified formulation [facility] 12-11-2016 influenza virus vaccine, unspecified formulation [facility] 02-10-2015 influenza virus vaccine, unspecified formulation [facility] 04-04-2014 influenza virus vaccine, unspecified formulation [facility] 04-04-2014 tetanus toxoid, redu kym diphtheria toxoid, and acellular pertussis vaccine, adsorbed [facility] 02-01-2010 pneumococcal polysaccharide vaccine, 23 valent Marty Link [facility] NEGATED: Highlighted row has not occurred!01-30-2024 influenza virus vaccine, unspecified formulation Marty Link [facility] NEGATED: Highlighted row has not occurred!09-10-2023 influenza virus vaccine, unspecified formulation Marty Link [facility] NEGATED: Highlighted row has not occurred!08-09-2023 influenza virus vaccine, unspecified formulation Marty Link [facility] NEGATED: Highlighted row has not occurred!04-15-2023 influenza virus vaccine, unspecified formulation Nany Queen [facility] NEGATED: Highlighted row has not occurred!01-31-2023 influenza virus vaccine, unspecified formulation CORA BRANHAM [facility] NEGATED: Highlighted row has not occurred!02-15-2022 influenza virus vaccine, unspecified formulation Soraya Hammer [facility] Comment on above: Result Comment: pt i s getting this at a later date Payers Date Payer Category Payer Self-pay [id number] 2023 Unknown [id number] 2022 Medicare [id number] 1959 Private Health Insurance [id number] 1959 Private Health Insurance [id number] 1960 Unknown [id number] 2..840.1.061273.3.579.2.593 1958 Unknown [id number] ..840.1.899230.3.579.2.59 1958 Unknown [id number] 2..840.1.632396.3.579.2.593 1958 Unknown [id number] 2.16.840.1.042812.3.579.2.593 1958 Unknown [id number] 2.16.840.1.701758.3.579.2.593 1958 Unknown [id number] 2.16.840.1.570574.3.579.2.593 1958 Unknown [id number] 2.16.840.1.927288.3.579.2. 1958 Unknown [id number] 2.16.840.1.109985.3.579.2. 1958 Unknown [id number] 2.16.840.1.080619.3.579.2. 1958 Unknown [id number] 2.16.840.1.543156.3.579.2. 1958 Unknown [id number] 2.16.840.1.092438.3.579.2. 1958 Unknown [id number] 2.16.840.1.213656.3.579.2. 1958 Unknown [id number] 2.16.840.1.669454.3.579.2 1958 Unknown [id number] 2.16.840.1.514414.3.579.2. 1958 Unknown [id number] 2.16.840.1.631162.3.579.2. 1958 Unknown [id number] 2.16.840.1.584738.3.579.2. 1958 Unknown [id number] 2.16.840.1.362054.3.579.2. 1958 Unknown [id number] 2.16.840.1.672627.3.579.2. 1958 Unknown [id number] 2.16.840.1.405299.3.579.2. 1958 Unknown [id number] 2.16.840.1.115397.3.579.2. 1958 Unknown [id number] 2.16.840.1.514674.3.579.2 1958 Unknown [id number] 2.16.840.1.737600.3.579.2.727 1958 Unknown [id number] 2.16.840.1.422698.3.579.2.727 1958 Unknown [id number] 2.16.840.1.162357.3.579.2.727 1958 Unknown [id number] 2.16.840.1.992948.3.579.2.72 1958 Unknown [id number] 2.16.840.1.444171.3.579.2.72 1958 Unknown [id number] 2.16.840.1.445375.3.579.2.727 1958 Unknown [id number] 2.16.840.1.800487.3.579.2.72 Private Health Insurance [employer] [id number] Unknown [id number] Unknown Regular Insurance [id number] Unknown [id number] 2.16.840.1.773557.3.579.2.531 Social History Date Type Detail Facility Start: 07-05-2021 End: 01-30-2024 Tobacco smoking status Never smoked tobacco (finding) [facility] Comment on above: denies Tobacco smoking status Never [facility] Comment on above: denies Sex Assigned At Female [facility] Start: 1960 Sex Assigned At Female [facility] Functional Status Date Assessment Result Facility 02-18-2024 Functional Status N/A [facility] 01-30-2024 Functional Status N/A [facility] 01-20-2024 Functional Status N/A [facility] 12-27-2023 Functional Status N/A [facility] 09-10-2023 Functional Status N/A [facility] 08-14-2023 Functional Status N/A [facility] 08-09-2023 Functional Status N/A [facility] 07-04-2023 Functional Status N/A [facility] 04-16-2023 Functional Status N/A [facility] 02-17-2023 Functional Status N/A [facility] 02-13-2023 Functional Status N/A [facility] 06-14-2022 Functional Status N/A [facility] 02-15-2022 Functional Status N/A [facility] 11-10-2021 Functional Status N/A [facility] 11-01-2021 Functional Status N/A [facility] 10-20-2021 Functional Status N/A [facility] 10-18-2021 Functional Status N/A [facility] Clinical Notes 07-05-2021 to 02-18-2024 Note Date & Type Note Facility 02-18-2024 Hospital Discharge instructions Patient Education 02/18/2024 15:24:26 Preventive Care 65 Years and Older, Female Preventive Care 65 Years and Older, Female Preventive care refers to lifestyle choices and visits with your health care provider that can promote health and wellness. Preventive care visits are also called wellness exams. What can I expect for my preventive care visit? Counseling Your health care provider may ask you questions about your: Medical history, including: ?Past medical problems. ?Family medical history. ? and menstrual history. ?History of falls. Current health, including: ?Memory and ability to understand (cognition). ?Emotional well-being. ?Home life and relationship well-being. ?Sexual activity and sexual health. Lifestyle, including: ?Alcohol, nicotine or tobacco, and drug use. ?Access to firearms. ?Diet, exercise, and sleep habits. ?Work and work environment. ?Sunscreen use. ?Safety issues such as seatbelt and bike helmet use. Physical exam Your health care provider will check your: Height and weight. These may be used to calculate your BMI (body mass index). BMI is a measurement that tells if you are at a healthy weight. Waist circumference. This measures the distance around your waistline. This measurement also tells if you are at a healthy weight and may help predict your risk of certain diseases, such as type 2 diabetes and high blood pressure. Heart rate and blood pressure. Body temperature. Skin for abnormal spots. What immunizations do I need? Vaccines are usually given at various ages, according to a schedule. Your health care provider will recommend vaccines for you based on your age, medical history, and lifestyle or other factors, such as travel or where you work. What tests do I need? Screening Your health care provider may recommend screening tests for certain conditions. This may include: Lipid and cholesterol levels. Hepatitis C test. Hepatitis B test. HIV (human immunodeficiency virus) test. STI (sexually transmitted infection) testing, if you are at risk. Lung cancer screening. Colorectal cancer screening. Diabetes screening. This is done by checking your blood sugar (glucose) after you have not eaten for a while (fasting). Mammogram. Talk with your health care provider about how often you should have regular mammograms. BRCA-related cancer screening. This may be done if you have a family history of breast, ovarian, tubal, or peritoneal cancers. Bone density scan. This is done to screen for osteoporosis. Talk with your health care provider about your test results, treatment options, and if necessary, the need for more tests. Follow these instructions at home: Eating and drinking Eat a diet that includes fresh fruits and vegetables, whole grains, lean protein, and low-fat dairy products. Limit your intake of foods with high amounts of sugar, saturated fats, and salt. Take vitamin and mineral supplements as recommended by your health care provider. Do not drink alcohol if your health care provider tells you not to drink. If you drink alcohol: ?Limit how much you have to 0 1 drink a day. ?Know how much alcohol is in your drink. In the [place] one drink equals one 12 oz bottle of beer (355 mL), one 5 oz glass of wine (148 mL), or one 1 oz glass of hard liquor (44 mL). Lifestyle Yale your teeth every morning and night with fluoride toothpaste. Floss one time each day. Exercise for at least 30 minutes 5 or more days each week. Do not use any products that contain nicotine or tobacco. These products include cigarettes, chewing tobacco, and vaping devices, such as e-cigarettes. If you need help quitting, ask your health care provider. Do not use drugs. If you are sexually active, practice safe sex. Use a condom or other form of protection in order to prevent STIs. Take aspirin only as told by your health care provider. Make sure that you understand how much to take and what form to take. Work with your health care provider to find out whether it is safe and beneficial for you to take aspirin daily. Ask your health care provider if you need to take a cholesterol-lowering medicine (statin). Find healthy ways to manage stress, such as: ?Meditation, yoga, or listening to music. ?Journaling. ?Talking to a trusted person. ?Spending time with friends and family. Minimize exposure to UV radiation to reduce your risk of skin cancer. Safety Always wear your seat belt while driving or riding in a vehicle. Do not drive: ?If you have been drinking alcohol. Do not ride with someone who has been drinking. ?When you are tired or distracted. ?While texting. ?If you have been using any mind-altering substances or drugs. Wear a helmet and other protective equipment during sports activities. If you have firearms in your house, make sure you follow all gun safety procedures. What's next? Visit your health care provider once a year for an annual wellness visit. Ask your health care provider how often you should have your eyes and teeth checked. Stay up to date on all vaccines. This information is not intended to replace advice given to you by your health care provider. Make sure you discuss any questions you have with your health care provider. Document Revised: 10/11/2021 Document Reviewed: 10/11/2021 [employer] Patient Education 2023 [employer]. 02/18/2024 15:24:25 Obesity, Adult Obesity, Adult Obesity is the condition of having too much total body fat. Being overweight or obese means that your weight is greater than what is considered healthy for your body size. Obesity is determined by a measurement called BMI (body mass index). BMI is an estimate of body fat and is calculated from height and weight. For adults, a BMI of 30 or higher is considered obese. Obesity can lead to other health concerns and major illnesses, including: Stroke. Coronary artery disease (CAD). Type 2 diabetes. Some types of cancer, including cancers of the colon, breast, uterus, and gallbladder. High blood pressure (hypertension). High cholesterol. Gallbladder stones. Obesity can also contribute to: Osteoarthritis. Sleep apnea. Infertility problems. What are the causes? Common causes of this condition include: Eating daily meals that are high in calories, sugar, and fat. Drinking high amounts of sugar-sweetened beverages, such as soft drinks. Being born with genes that may make you more likely to become obese. Having a medical condition that causes obesity, including: ?Hypothyroidism. ?Polycystic ovarian syndrome (PCOS). ?Binge-eating disorder. ?Giuseppe syndrome. Taking certain medicines, such as steroids, antidepressants, and seizure medicines. Not being physically active (sedentary lifestyle). Not getting enough sleep. What increases the risk? The following factors may make you more likely to develop this condition: Having a family history of obesity. Living in an area with limited access to: ?[place], recreation centers, or sidewalks. ?Healthy food choices, such as grocery stores and [employer]chrono. What are the signs or symptoms? The main sign of this condition is having too much body fat. How is this diagnosed? This condition is diagnosed based on: Your BMI. If you are an adult with a BMI of 30 or higher, you are considered obese. Your waist circumference. This measures the distance around your waistline. Your skinfold thickness. Your health care provider may gently pinch a fold of your skin and measure it. You may have other tests to check for underlying conditions. How is this treated? Treatment for this condition often includes changing your lifestyle. Treatment may include some or all of the following: Dietary changes. This may include developing a healthy meal plan. Regular physical activity. This may include activity that causes your heart to beat faster (aerobic exercise) and strength training. Work with your health care provider to design an exercise program that works for you. Medicine to help you lose weight if you are unable to lose one pound a week after six weeks of healthy eating and more physical activity. Treating conditions that cause the obesity (underlying conditions). Surgery. Surgical options may include gastric banding and gastric bypass. Surgery may be done if: ?Other treatments have not helped to improve your condition. ?You have a BMI of 40 or higher. ?You have life-threatening health problems related to obesity. Follow these instructions at home: Eating and drinking Follow recommendations from your health care provider about what you eat and drink. Your health care provider may advise you to: ?Limit fast food, sweets, and processed snack foods. ?Choose low-fat options, such as low-fat milk instead of whole milk. ?Eat five or more servings of fruits or vegetables every day. ?Choose healthy foods when you eat out. ?Keep low-fat snacks available. ?Limit sugary drinks, such as soda, fruit juice, sweetened iced tea, and flavored milk. Drink enough water to keep your urine pale yellow. Do not follow a fad diet. Fad diets can be unhealthy and even dangerous. Other healthful choices include: ?Eat at home more often. This gives you more control over what you eat. ?Learn to read food labels. This will help you understand how much food is considered one serving. ?Learn what a healthy serving size is. Physical activity Exercise regularly, as told by your health care provider. ?Most adults should get up to 150 minutes of moderate-intensity exercise every week. ?Ask your health care provider what types of exercise are safe for you and how often you should exercise. Warm up and stretch before being active. Cool down and stretch after being active. Rest between periods of activity. Lifestyle Work with your health care provider and a dietitian to set a weight-loss goal that is healthy and reasonable for you. Limit your screen time. Find ways to reward yourself that do not involve food. Do not drink alcohol if: ?Your health care provider tells you not to drink. ?You are , may be , or are planning to become . If you drink alcohol: ?Limit how much you have to: ?0 1 drink a day for women. ?0 2 drinks a day for men. ?Know how much alcohol is in your drink. In the [place] one drink equals one 12 oz bottle of beer (355 mL), one 5 oz glass of wine (148 mL), or one 1 oz glass of hard liquor (44 mL). General instructions Keep a weight-loss journal to keep track of the food you eat and how much exercise you get. Take kaxe-pjy-qdndnvn and prescription medicines only as told by your health care provider. Take vitamins and supplements only as told by your health care provider. Consider joining a support group. Your health care provider may be able to recommend a support group. Pay attention to your mental health as obesity can lead to depression or self esteem issues. Keep all follow-up visits. This is important. Contact a health care provider if: You are unable to meet your weight-loss goal after six weeks of dietary and lifestyle changes. You have trouble breathing. Summary Obesity is the condition of having too much total body fat. Being overweight or obese means that your weight is greater than what is considered healthy for your body size. Work with your health care provider and a dietitian to set a weight-loss goal that is healthy and reasonable for you. Exercise regularly, as told by your health care provider. Ask your health care provider what types of exercise are safe for you and how often you should exercise. This information is not intended to replace advice given to you by your health care provider. Make sure you discuss any questions you have with your health care provider. Document Revised: 11/21/2021 Document Reviewed: 11/21/2021 [employer] Patient Education 2023 [employer]. 02/18/2024 15:24:24 Major Depressive Disorder, Adult Major Depressive Disorder, Adult Major depressive disorder (MDD) is a mental health condition. It may also be called clinical depression or unipolar depression. MDD causes symptoms of sadness, hopelessness, and loss of interest in things. These symptoms last most of the day, almost every day, for 2 weeks. MDD can also cause physical symptoms. It can interfere with relationships and activities, such as work, school, and activities that are usually pleasant. MDD may be mild, moderate, or severe. It may be single-episode MDD, which happens once, or recurrent MDD, which may occur many times. What are the causes? The exact cause of this condition is not known. What increases the risk? The following factors may make someone more likely to develop MDD: A family history of depression. Being female. Long-term (chronic) stress, physical illness, other mental health disorders, or substance misuse. Trauma, including: ?Family problems. ?Violence or abuse. ?Loss of a parent or close family member. ?Experiencing discrimination. What are the signs or symptoms? The main symptoms of MDD usually include: Constant depressed or irritable mood. A loss of interest in activities. Sleeping or eating too much or too little. Tiredness or low energy. Other symptoms include: Unexplained weight gain or weight loss. Being agitated, restless, or weak. Feeling hopeless, worthless, or guilty. Trouble thinking clearly or making decisions. Thoughts of suicide or harming others. Spending a lot of time alone. Not being able to complete daily tasks or work. Severe symptoms of this condition may include: Psychotic depression.This may include false beliefs or delusions. It may also include seeing, hearing, tasting, smelling, or feeling things that are not real (hallucinations). Chronic depression or persistent depressive disorder. This is low-level depression that lasts for at least 2 years. Melancholic depression, or feeling extremely sad and hopeless. Catatonic depression, which includes trouble speaking and trouble moving. Seasonal depression, which is caused by changes in the seasons. How is this diagnosed? This condition may be diagnosed based on: Your symptoms. Your medical and mental health history. A physical exam. Blood tests to rule out other conditions. MDD is confirmed if you have either a depressed mood or loss of interest and at least four other MDD symptoms, most of the day, nearly every day, in a 2-week period. How is this treated? This condition is usually treated by mental health professionals, such as psychologists, psychiatrists, and clinical social workers. You may need more than one type of treatment. Treatment may include: Psychotherapy, also called talk therapy or counseling. Types of psychotherapy include: ?Cognitive behavioral therapy (CBT). This teaches you to recognize unhealthy feelings, thoughts, and behaviors, and replace them with positive thoughts and actions. ?Interpersonal therapy (IPT). This helps you to improve the way you communicate with others or relate to them. ?Family therapy. This treatment includes members of your family. Medicines to treat anxiety and depression. These medicines help to balance the brain chemicals that affect your emotions. Lifestyle changes. You may be asked to: ?Limit alcohol use and avoid drug use. ?Get regular exercise. ?Get plenty of sleep. ?Make healthy eating choices. ?Spend more time outdoors. Brain stimulation. This may be done if symptoms are very severe and other treatments have not worked. Examples of this treatment are electroconvulsive therapy and transcranial magnetic stimulation. Follow these instructions at home: Alcohol use Do not drink alcohol if: ?Your health care provider tells you not to drink. ?You are , may be , or are planning to become . If you drink alcohol: ?Limit how much you have to: ?0 1 drink a day for women ?0 2 drinks a day for men. ?Know how much alcohol is in your drink. In the [place] one drink equals one 12 oz bottle of beer (355 mL), one 5 oz glass of wine (148 mL), or one 1 oz glass of hard liquor (44 mL). Activity Exercise regularly and spend time outdoors. Find activities that you enjoy and make time to do them. Find healthy ways to manage stress, such as: ?Meditation or deep breathing. ?Spending time in nature. ?Journaling. Return to your normal activities as told by your health care provider. Ask your health care provider what activities are safe for you. General instructions Take jswn-txd-[id number] and prescription medicines only as told by your health care provider. Discuss alcohol use with your health care provider. Alcohol can affect any antidepressant medicines you are taking. Discuss any drug use with your health care provider. Eat a healthy diet and get enough sleep. Consider joining a support group. Your health care provider may be able to recommend one. Keep all follow-up visits. It is important for your health care provider to check on your mood, behavior, and medicines. Your health care provider will make changes to your treatment as needed. Where to find more information National [place] on Mental Illness: savi.org National [place] of Mental Health: nimh.nih.gov [place] [employer]: psychiatry.org Contact a health care provider if: Your symptoms get worse. You develop new symptoms. Get help right away if: You hurt yourself on purpose (self-harm). You have thoughts about hurting yourself or others. You have hallucinations. Get help right away if you feel like you may hurt yourself or others, or have thoughts about taking your own life. Go to your nearest emergency room or: Call 911. Call the National Suicide Prevention Lifeline at or 949. This is open 24 hours a day. Text the Crisis Text Line at 895861. This information is not intended to replace advice given to you by your health care provider. Make sure you discuss any questions you have with your health care provider. Document Revised: 08/21/2022 Document Reviewed: 08/21/2022 [employer] Patient Education 2023 [employer]. 02/18/2024 15:24:22 Kidney Stones, Nxvq-zn-Jcwg Kidney Stones Kidney stones are rock-like masses that form inside of the kidneys. Kidneys are organs that make pee (urine). A kidney stone may move into other parts of the urinary tract, including: The tubes that connect the kidneys to the bladder (ureters). The bladder. The tube that carries urine out of the body (urethra). Kidney stones can cause very bad pain and can block the flow of pee. The stone usually leaves your body through your pee. A doctor may need to take out the stone. What are the causes? Kidney stones may be caused by: Too much calcium in the body. This may be caused by too much parathyroid hormone in the blood. Uric acid crystals in the bladder. The body makes uric acid when you eat certain foods. Narrowing of one or both of the ureters. A kidney blockage that you were born with. Past surgery on the kidney or the ureters. What increases the risk? You are more likely to develop this condition if: You have had a kidney stone in the past. Other people in your family have had kidney stones. You do not drink enough water. You eat a diet that is high in protein, salt (sodium), or sugar. You are very overweight (obese). What are the signs or symptoms? Symptoms of a kidney stone may include: Pain in the side of the belly, right below the ribs. Pain usually spreads to the groin. Needing to pee often or right away. Pain when peeing. Blood in your pee. Feeling like you may vomit (nauseous). Vomiting. Fever and chills. How is this treated? Treatment depends on the size, location, and makeup of the kidney stones. The stones will often pass out of the body when you pee. You may need to: Drink more fluid to help pass the stone. ?In some cases, you may be given fluids through an IV tube at the hospital. Take medicine for pain. Change your diet to help keep kidney stones from coming back. Sometimes, you may need: A procedure to break up kidney stones using a beam of light (laser) or shock waves. Surgery to remove the kidney stones. Follow these instructions at home: Medicines Take mmbg-fal-lefjpoj and prescription medicines only as told by your doctor. Ask your doctor if the medicine prescribed to you requires you to avoid driving or using machinery. Eating and drinking Drink enough fluid to keep your pee pale yellow. ?You may be told to drink at least 8 10 glasses of water each day. This will help you pass the stone. If told by your doctor, change your diet. You may be told to: ?Limit how much salt you eat. ?Eat more fruits and vegetables. ?Limit how much meat, poultry, fish, and eggs you eat. Follow instructions from your doctor about what you may eat and drink. General instructions Collect pee samples as told by your doctor. You may need to collect a pee sample: ?24 hours after a stone comes out. ?8 12 weeks after a stone comes out, and every 6 12 months after that. Strain your pee every time you pee. Use the strainer that your doctor recommends. Do not throw out the stone. Keep it so that it can be tested by your doctor. Keep all follow-up visits. You may need X-rays and ultrasounds to make sure the stone has come out. How is this prevented? To prevent another kidney stone: Drink enough fluid to keep your pee pale yellow. This is the best way to prevent kidney stones. Eat healthy foods. Avoid certain foods as told by your doctor. You may be told to eat less protein. Stay at a healthy weight. Where to find more information National Kidney Foundation (NKF): kidney.org [facility] (UCF): urologyhealth.org Contact a doctor if: You have pain that gets worse or does not get better with medicine. Get help right away if: You have a fever or chills. You get very bad pain. You get new pain in your belly. You faint. You cannot pee. This information is not intended to replace advice given to you by your health care provider. Make sure you discuss any questions you have with your health care provider. Document Revised: 12/07/2022 Document Reviewed: 12/07/2022 [employer] Patient Education 2023 [employer]. 02/18/2024 15:24:20 Exercising to Lose Weight Exercising to Lose Weight Getting regular exercise is important for everyone. It is especially important if you are overweight. Being overweight increases your risk of heart disease, stroke, diabetes, high blood pressure, and several types of cancer. Exercising, and reducing the calories you consume, can help you lose weight and improve fitness and health. Exercise can be moderate or vigorous intensity. To lose weight, most people need to do a certain amount of moderate or vigorous-intensity exercise each week. How can exercise affect me? You lose weight when you exercise enough to burn more calories than you eat. Exercise also reduces body fat and builds muscle. The more muscle you have, the more calories you burn. Exercise also: Improves mood. Reduces stress and tension. Improves your overall fitness, flexibility, and endurance. Increases bone strength. Moderate-intensity exercise Moderate-intensity exercise is any activity that gets you moving enough to burn at least three times more energy (calories) than if you were sitting. Examples of moderate exercise include: Walking a mile in 15 minutes. Doing light yard work. Biking at an easy pace. Most people should get at least 150 minutes of moderate-intensity exercise a week to maintain their body weight. Vigorous-intensity exercise Vigorous-intensity exercise is any activity that gets you moving enough to burn at least six times more calories than if you were sitting. When you exercise at this intensity, you should be working hard enough that you are not able to carry on a conversation. Examples of vigorous exercise include: Running. Playing a team sport, such as football, basketball, and soccer. Jumping rope. Most people should get at least 75 minutes a week of vigorous exercise to maintain their body weight. What actions can I take to lose weight? The amount of exercise you need to lose weight depends on: Your age. The type of exercise. Any health conditions you have. Your overall physical ability. Talk to your health care provider about how much exercise you need and what types of activities are safe for you. Nutrition Make changes to your diet as told by your health care provider or diet and nutrition services assistant (dietitian). This may include: ?Eating fewer calories. ?Eating more protein. ?Eating less unhealthy fats. ?Eating a diet that includes fresh fruits and vegetables, whole grains, low-fat dairy products, and lean protein. ?Avoiding foods with added fat, salt, and sugar. Drink plenty of water while you exercise to prevent dehydration or heat stroke. Activity Choose an activity that you enjoy and set realistic goals. Your health care provider can help you make an exercise plan that works for you. Exercise at a moderate or vigorous intensity most days of the week. ?The intensity of exercise may vary from person to person. You can tell how intense a workout is for you by paying attention to your breathing and heartbeat. Most people will notice their breathing and heartbeat get faster with more intense exercise. Do resistance training twice each week, such as: ?Push-ups. ?Sit-ups. ?Lifting weights. ?Using resistance bands. Getting short amounts of exercise can be just as helpful as long, structured periods of exercise. If you have trouble finding time to exercise, try doing these things as part of your daily routine: ?Get up, stretch, and walk around every 30 minutes throughout the day. ?Go for a walk during your lunch break. ?Park your car farther away from your destination. ?If you take public transportation, get off one stop early and walk the rest of the way. ?Make phone calls while standing up and walking around. ?Take the stairs instead of elevators or escalators. Wear comfortable clothes and shoes with good support. Do not exercise so much that you hurt yourself, feel dizzy, or get very short of breath. Where to find more information U.S. Department of Health and Human Services: www.hhs.gov Centers for Disease Control and Prevention: www.cdc.gov Contact a health care provider: Before starting a new exercise program. If you have questions or concerns about your weight. If you have a medical problem that keeps you from exercising. Get help right away if: You have any of the following while exercising: ?Injury. ?Dizziness. ?Difficulty breathing or shortness of breath that does not go away when you stop exercising. ?Chest pain. ?Rapid heartbeat. These symptoms may represent a serious problem that is an emergency. Do not wait to see if the symptoms will go away. Get medical help right away. Call your local emergency services (911 in the [place] Do not drive yourself to the hospital. Summary Getting regular exercise is especially important if you are overweight. Being overweight increases your risk of heart disease, stroke, diabetes, high blood pressure, and several types of cancer. Losing weight happens when you burn more calories than you eat. Reducing the amount of calories you eat, and getting regular moderate or vigorous exercise each week, helps you lose weight. This information is not intended to replace advice given to you by your health care provider. Make sure you discuss any questions you have with your health care provider. Document Revised: 06/11/2021 Document Reviewed: 06/11/2021 [employer] Patient Education 2023 [employer]. 02/18/2024 15:24:17 BMI for Adults BMI for Adults Body mass index (BMI) is a number found using a person's weight and height. BMI can help tell how much of a person's weight is made up of fat. BMI does not measure body fat directly. It is used instead of tests that directly measure body fat, which can be difficult and expensive. What are BMI measurements used for? BMI is useful to: Find out if your weight puts you at higher risk for medical problems. Help recommend changes, such as in diet and exercise. This can help you reach a healthy weight. BMI screening can be done again to see if these changes are working. How is BMI calculated? Your height and weight are measured. The BMI is found from those numbers. This can be done with [place] or metric measurements. Note that charts and online BMI calculators are available to help you find your BMI quickly and easily without doing these calculations. To calculate your BMI in [place] measurements: 1.Measure your weight in pounds (lb). 2.Multiply the number of pounds by 703. So, for an adult who weighs 150 lb, multiply that number by 703: 150 x 703, which equals 105,450. 3.Measure your height in inches. Then multiply that number by itself to get a measurement called inches squared. So, for an adult who is 70 inches tall, the inches squared measurement is 70 inches x 70 inches, which equals 4,900 inches squared. 4.Divide the total from step 2 (number of lb x 703) by the total from step 3 (inches squared): 105,450 4,900 = 21.5. This is your BMI. To calculate your BMI in metric measurements: 1.Measure your weight in kilograms (kg). For this example, the weight is 70 kg. 2.Measure your height in meters (m). Then multiply that number by itself to get a measurement called meters squared. So, for an adult who is 1.75 m tall, the meters squared measurement is 1.75 m x 1.75 m, which equals 3.1 meters squared. 3.Divide the number of kilograms (your weight) by the meters squared number. In this example: 70 3.1 = 22.6. This is your BMI. What do the results mean? BMI charts are used to see if you are underweight, normal weight, overweight, or obese. The following guidelines will be used: Underweight: BMI less than 18.5. Normal weight: BMI between 18.5 and 24.9. Overweight: BMI between 25 and 29.9. Obese: BMI of 30 or above. BMI is a tool and cannot diagnose a condition. Talk with your health care provider about what your BMI means for you. Keep these notes in mind: Weight includes fat and muscle. Someone with a muscular build, such as an athlete, may have a BMI that is higher than 24.9. In cases like these, BMI is not a correct measure of body fat. If you have a BMI of 25 or higher, your provider may need to do more testing to find out if excess body fat is the cause. BMI is measured the same way for males and females. Females usually have more body fat than males of the same height and weight. Where to find more information For more information about BMI, including tools to quickly find your BMI, go to: Centers for Disease Control and Prevention: cdc.gov [place] [employer]: heart.org National Heart, Lung, and Blood [place]: nhlbi.nih.gov This information is not intended to replace advice given to you by your health care provider. Make sure you discuss any questions you have with your health care provider. Document Revised: 01/03/2023 Document Reviewed: 12/27/2022 [employer] Patient Education 2023 [employer]. [facility] 02-18-2024 Note Echocardiology Procedure Exam Date/Time Accession # Ordering ECG Stress Exercise 02/03/2024 10:02 EDT [id number] Link Marty CORTES CPT code 76236 Reason for Exam (ECG Stress Exercise) R94.31;Abnormal EKG Report INDICATIONS: Presurgical clearance PROCEDURE DESCRIPTION: The patient exercised using a standard Roberto protocol for 7 minutes and 19 seconds achieving 100% of maximal age-predicted heart rate, 9.0 METS. She had no symptoms during the exercise part. Blood pressure at baseline was 159/72 mmHg, increased to 200/48 mmHg. The baseline ECG showed normal sinus rhythm. The stress ECG showed no changes suggestive of ischemia. CONCLUSIONS: 1. Uncomplicated exercise stress test, negative by clinical and electrocardiographic criteria, low risk. 2. Elevated blood pressure at baseline. Normal blood pressure response to exercise. cc: Marty Vargas D.O. FINAL REPORT Signed (Electronic Signature): 02/18/2024 3:36 pm Signed by: Greg Soni MD Transcribed by: NILDA Technologist: [facility] 02-18-2024 Note Patient Education Gastroenterology Obesity, Adult Obesity is the condition of having too much total body fat. Being overweight or obese means that your weight is greater than what is considered healthy for your body size. Obesity is determined by a measurement called BMI (body mass index). BMI is an estimate of body fat and is calculated from height and weight. For adults, a BMI of 30 or higher is considered obese. Obesity can lead to other health concerns and major illnesses, including: ??? Stroke. ??? Coronary artery disease (CAD). ??? Type 2 diabetes. ??? Some types of cancer, including cancers of the colon, breast, uterus, and gallbladder. ??? High blood pressure (hypertension). ??? High cholesterol. ??? Gallbladder stones. Obesity can also contribute to: ??? Osteoarthritis. ??? Sleep apnea. ??? Infertility problems. What are the causes? Common causes of this condition include: ??? Eating daily meals that are high in calories, sugar, and fat. ??? Drinking high amounts of sugar-sweetened beverages, such as soft drinks. ??? Being born with genes that may make you more likely to become obese. ??? Having a medical condition that causes obesity, including: ? Hypothyroidism. ? Polycystic ovarian syndrome (PCOS). ? Binge-eating disorder. ? Boissevain syndrome. ??? Taking certain medicines, such as steroids, antidepressants, and seizure medicines. ??? Not being physically active (sedentary lifestyle). ??? Not getting enough sleep. What increases the risk? The following factors may make you more likely to develop this condition: ??? Having a family history of obesity. ??? Living in an area with limited access to: ? [place], recreation centers, or sidewalks. ? Healthy food choices, such as grocery stores and [employer] markets. What are the signs or symptoms? The main sign of this condition is having too much body fat. How is this diagnosed? This condition is diagnosed based on: ??? Your BMI. If you are an adult with a BMI of 30 or higher, you are considered obese. ??? Your waist circumference. This measures the distance around your waistline. ??? Your skinfold thickness. Your health care provider may gently pinch a fold of your skin and measure it. You may have other tests to check for underlying conditions. How is this treated? Treatment for this condition often includes changing your lifestyle. Treatment may include some or all of the following: ??? Dietary changes. This may include developing a healthy meal plan. ??? Regular physical activity. This may include activity that causes your heart to beat faster (aerobic exercise) and strength training. Work with your health care provider to design an exercise program that works for you. ??? Medicine to help you lose weight if you are unable to lose one pound a week after six weeks of healthy eating and more physical activity. ??? Treating conditions that cause the obesity (underlying conditions). ??? Surgery. Surgical options may include gastric banding and gastric bypass. Surgery may be done if: ? Other treatments have not helped to improve your condition. ? You have a BMI of 40 or higher. ? You have life-threatening health problems related to obesity. Follow these instructions at home: Eating and drinking ??? Follow recommendations from your health care provider about what you eat and drink. Your health care provider may advise you to: ? Limit fast food, sweets, and processed snack foods. ? Choose low-fat options, such as low-fat milk instead of whole milk. ? Eat five or more servings of fruits or vegetables every day. ? Choose healthy foods when you eat out. ? Keep low-fat snacks available. ? Limit sugary drinks, such as soda, fruit juice, sweetened iced tea, and flavored milk. ??? Drink enough water to keep your urine pale yellow. ??? Do not follow a fad diet. Fad diets can be unhealthy and even dangerous. ??? Other healthful choices include: ? Eat at home more often. This gives you more control over what you eat. ? Learn to read food labels. This will help you understand how much food is considered one serving. ? Learn what a healthy serving size is. Physical activity ??? Exercise regularly, as told by your health care provider. ? Most adults should get up to 150 minutes of moderate-intensity exercise every week. ? Ask your health care provider what types of exercise are safe for you and how often you should exercise. ??? Warm up and stretch before being active. ??? Cool down and stretch after being active. ??? Rest between periods of activity. Lifestyle ??? Work with your health care provider and a dietitian to set a weight-loss goal that is healthy and reasonable for you. ??? Limit your screen time. ??? Find ways to reward yourself that do not involve food. ??? Do not drink alcohol if: ? Your health care provider tells you not to drink. ? You are , may be preg (more content not included)... [facility] 01-28-2024 Hospital Discharge instructions Follow Up Care 01/28/2024 14:58:05 With:Marty Vargas DO, [facility] Address: [address] [place] [id number]- When:4 weeks Comments:4 WEEKS FOLLOWUP [facility] 01-20-2024 Hospital Discharge instructions Patient Education 01/20/2024 13:41:01 Kidney Stones, Bngj-af-Ztiz Kidney Stones Kidney stones are rock-like masses that form inside of the kidneys. Kidneys are organs that make pee (urine). A kidney stone may move into other parts of the urinary tract, including: The tubes that connect the kidneys to the bladder (ureters). The bladder. The tube that carries urine out of the body (urethra). Kidney stones can cause very bad pain and can block the flow of pee. The stone usually leaves your body through your pee. A doctor may need to take out the stone. What are the causes? Kidney stones may be caused by: Too much calcium in the body. This may be caused by too much parathyroid hormone in the blood. Uric acid crystals in the bladder. The body makes uric acid when you eat certain foods. Narrowing of one or both of the ureters. A kidney blockage that you were born with. Past surgery on the kidney or the ureters. What increases the risk? You are more likely to develop this condition if: You have had a kidney stone in the past. Other people in your family have had kidney stones. You do not drink enough water. You eat a diet that is high in protein, salt (sodium), or sugar. You are very overweight (obese). What are the signs or symptoms? Symptoms of a kidney stone may include: Pain in the side of the belly, right below the ribs. Pain usually spreads to the groin. Needing to pee often or right away. Pain when peeing. Blood in your pee. Feeling like you may vomit (nauseous). Vomiting. Fever and chills. How is this treated? Treatment depends on the size, location, and makeup of the kidney stones. The stones will often pass out of the body when you pee. You may need to: Drink more fluid to help pass the stone. ?In some cases, you may be given fluids through an IV tube at the hospital. Take medicine for pain. Change your diet to help keep kidney stones from coming back. Sometimes, you may need: A procedure to break up kidney stones using a beam of light (laser) or shock waves. Surgery to remove the kidney stones. Follow these instructions at home: Medicines Take jweb-dkq-wkfrzjj and prescription medicines only as told by your doctor. Ask your doctor if the medicine prescribed to you requires you to avoid driving or using machinery. Eating and drinking Drink enough fluid to keep your pee pale yellow. ?You may be told to drink at least 8 10 glasses of water each day. This will help you pass the stone. If told by your doctor, change your diet. You may be told to: ?Limit how much salt you eat. ?Eat more fruits and vegetables. ?Limit how much meat, poultry, fish, and eggs you eat. Follow instructions from your doctor about what you may eat and drink. General instructions Collect pee samples as told by your doctor. You may need to collect a pee sample: ?24 hours after a stone comes out. ?8 12 weeks after a stone comes out, and every 6 12 months after that. Strain your pee every time you pee. Use the strainer that your doctor recommends. Do not throw out the stone. Keep it so that it can be tested by your doctor. Keep all follow-up visits. You may need X-rays and ultrasounds to make sure the stone has come out. How is this prevented? To prevent another kidney stone: Drink enough fluid to keep your pee pale yellow. This is the best way to prevent kidney stones. Eat healthy foods. Avoid certain foods as told by your doctor. You may be told to eat less protein. Stay at a healthy weight. Where to find more information National Kidney Foundation (NKF): kidney.org Urology Care Foundation (F): urologyhealth.org Contact a doctor if: You have pain that gets worse or does not get better with medicine. Get help right away if: You have a fever or chills. You get very bad pain. You get new pain in your belly. You faint. You cannot pee. This information is not intended to replace advice given to you by your health care provider. Make sure you discuss any questions you have with your health care provider. Document Revised: 12/07/2022 Document Reviewed: 12/07/2022 [employer] Patient Education 2023 [employer]. Follow Up Care 01/01/2024 14:21:01 With:Marlin Smith MD, URL, [facility] Address: [phone] When: Unknown With:Marlin Smith MD, URL, [facility] Address: When: Unknown [facility] 01-20-2024 Note Patient Education Urology Kidney Stones Kidney stones are rock-like masses that form inside of the kidneys. Kidneys are organs that make pee (urine). A kidney stone may move into other parts of the urinary tract, including: ? The tubes that connect the kidneys to the bladder (ureters). ? The bladder. ? The tube that carries urine out of the body (urethra). Kidney stones can cause very bad pain and can block the flow of pee. The stone usually leaves your body through your pee. A doctor may need to take out the stone. What are the causes? Kidney stones may be caused by: ? Too much calcium in the body. This may be caused by too much parathyroid hormone in the blood. ? Uric acid crystals in the bladder. The body makes uric acid when you eat certain foods. ? Narrowing of one or both of the ureters. ? A kidney blockage that you were born with. ? Past surgery on the kidney or the ureters. What increases the risk? You are more likely to develop this condition if: ? You have had a kidney stone in the past. ? Other people in your family have had kidney stones. ? You do not drink enough water. ? You eat a diet that is high in protein, salt (sodium), or sugar. ? You are very overweight (obese). What are the signs or symptoms? Symptoms of a kidney stone may include: ? Pain in the side of the belly, right below the ribs. Pain usually spreads to the groin. ? Needing to pee often or right away. ? Pain when peeing. ? Blood in your pee. ? Feeling like you may vomit (nauseous). ? Vomiting. ? Fever and chills. How is this treated? Treatment depends on the size, location, and makeup of the kidney stones. The stones will often pass out of the body when you pee. You may need to: ? Drink more fluid to help pass the stone. ? In some cases, you may be given fluids through an IV tube at the hospital. ? Take medicine for pain. ? Change your diet to help keep kidney stones from coming back. Sometimes, you may need: ? A procedure to break up kidney stones using a beam of light (laser) or shock waves. ? Surgery to remove the kidney stones. Follow these instructions at home: Medicines ? Take icrb-mqm-hgvqqoz and prescription medicines only as told by your doctor. ? Ask your doctor if the medicine prescribed to you requires you to avoid driving or using machinery. Eating and drinking ? Drink enough fluid to keep your pee pale yellow. ? You may be told to drink at least 8?10 glasses of water each day. This will help you pass the stone. ? If told by your doctor, change your diet. You may be told to: ? Limit how much salt you eat. ? Eat more fruits and vegetables. ? Limit how much meat, poultry, fish, and eggs you eat. ? Follow instructions from your doctor about what you may eat and drink. General instructions ? Collect pee samples as told by your doctor. You may need to collect a pee sample: ? 24 hours after a stone comes out. ? 8?12 weeks after a stone comes out, and every 6?12 months after that. ? Strain your pee every time you pee. Use the strainer that your doctor recommends. ? Do not throw out the stone. Keep it so that it can be tested by your doctor. ? Keep all follow-up visits. You may need X-rays and ultrasounds to make sure the stone has come out. How is this prevented? To prevent another kidney stone: ? Drink enough fluid to keep your pee pale yellow. This is the best way to prevent kidney stones. ? Eat healthy foods. ? Avoid certain foods as told by your doctor. You may be told to eat less protein. ? Stay at a healthy weight. Where to find more information ? National Kidney Foundation (NKF): kidney.org ? Urology Care Foundation (UCF): urologyhealth.org Contact a doctor if: ? You have pain that gets worse or does not get better with medicine. Get help right away if: ? You have a fever or chills. ? You get very bad pain. ? You get new pain in your belly. ? You faint. ? You cannot pee. This information is not intended to replace advice given to you by your health care provider. Make sure you discuss any questions you have with your health care provider. Document Revised: 12/07/2022 Document Reviewed: 12/07/2022 [employer] Patient Education ? 2023 [employer]. [facility] 12-27-2023 Hospital Discharge instructions Patient Education 12/27/2023 14:16:44 Kidney Stones Kidney Stones Kidney stones are solid, rock-like deposits that form inside of the kidneys. The kidneys are a pair of organs that make urine. A kidney stone may form in a kidney and move into other parts of the urinary tract, including the tubes that connect the kidneys to the bladder (ureters), the bladder, and the tube that carries urine out of the body (urethra). As the stone moves through these areas, it can cause intense pain and block the flow of urine. Kidney stones are created when high levels of certain minerals are found in the urine. The stones are usually passed out of the body through urination, but in some cases, medical treatment may be needed to remove them. What are the causes? Kidney stones may be caused by: A condition in which certain glands produce too much parathyroid hormone (primary hyperparathyroidism), which causes too much calcium buildup in the blood. A buildup of uric acid crystals in the bladder (hyperuricosuria). Uric acid is a chemical that the body produces when you eat certain foods. It usually leaves the body in the urine. Narrowing (stricture) of one or both of the ureters. A kidney blockage that is present at (congenital obstruction). Past surgery on the kidney or the ureters. What increases the risk? The following factors may make you more likely to develop this condition: Having had a kidney stone in the past. Having a family history of kidney stones. Not drinking enough water. Eating a diet that is high in protein, salt (sodium), or sugar. Being overweight or obese. What are the signs or symptoms? Symptoms of a kidney stone may include: Pain in the side of the abdomen, right below the ribs (flank pain). Pain usually spreads (radiates) to the groin. Needing to urinate often or urgently. Painful urination. Blood in the urine (hematuria). Nausea. Vomiting. Fever and chills. How is this diagnosed? This condition may be diagnosed based on: Your symptoms and medical history. A physical exam. Blood tests. Urine tests. These may be done before and after the stone passes out of your body through urination. Imaging tests, such as a CT scan, abdominal X-ray, or ultrasound. A procedure to examine the inside of the bladder (cystoscopy). How is this treated? Treatment for kidney stones depends on the size, location, and makeup of the stones. Kidney stones will often pass out of the body through urination. You may need to: Increase your fluid intake to help pass the stone. In some cases, you may be given fluids through an IV and may need to be monitored in the hospital. Take medicine for pain. Make changes in your diet to help prevent kidney stones from coming back. Sometimes, procedures are needed to remove a kidney stone. This may involve: A procedure to break up kidney stones using: ?A focused beam of light (laser therapy). ?Shock waves (extracorporeal shock wave lithotripsy). Surgery to remove kidney stones. This may be needed if you have severe pain or have stones that block your urinary tract. Follow these instructions at home: Medicines Take hpco-luz-qkhiyzz and prescription medicines only as told by your health care provider. Ask your health care provider if the medicine prescribed to you requires you to avoid driving or using heavy machinery. Eating and drinking Drink enough fluid to keep your urine pale yellow. You may be instructed to drink at least 8 10 glasses of water each day. This will help you pass the kidney stone. If directed, change your diet. This may include: ?Limiting how much sodium you eat. ?Eating more fruits and vegetables. ?Limiting how much animal protein you eat. Animal proteins include red meat, poultry, fish, and eggs. ?Eating a normal amount of calcium (1,000 1,300 mg per day). Follow instructions from your health care provider about eating or drinking restrictions. General instructions Collect urine samples as told by your health care provider. You may need to collect a urine sample: ?24 hours after you pass the stone. ?8 12 weeks after you pass the kidney stone, and every 6 12 months after that. Strain your urine every time you urinate, for as long as directed. Use the strainer that your health care provider recommends. Do not throw out the kidney stone after passing it. Keep the stone so it can be tested by your health care provider. Testing the makeup of your kidney stone may help prevent you from getting kidney stones in the future. Keep all follow-up visits. You may need follow-up X-rays or ultrasounds to make sure that your stone has passed. How is this prevented? To prevent another kidney stone: Drink enough fluid to keep your urine pale yellow. This is the best way to prevent kidney stones. Eat a healthy diet. Follow recommendations from your health care provider about foods to avoid. Recommendations vary depending on the type of kidney stone that you have. You may be instructed to eat a low-protein diet. Maintain a healthy weight. Where to find more information National Kidney Foundation (NKF): www.kidney.org Urology Care Foundation (UCF): www.urologyhealth.org Contact a health care provider if: You have pain that gets worse or does not get better with medicine. Get help right away if: You have a fever or chills. You develop severe pain. You develop new abdominal pain. You faint. You are unable to urinate. Summary Kidney stones are solid, rock-like deposits that form inside of the kidneys. Kidney stones can cause nausea, vomiting, blood in the urine, abdominal pain, and the urge to urinate often. Treatment for kidney stones depends on the size, location, and makeup of the stones. Kidney stones will often pass out of the body through urination. Kidney stones can be prevented by drinking enough fluids, eating a healthy diet, and maintaining a healthy weight. This information is not intended to replace advice given to you by your health care provider. Make sure you discuss any questions you have with your health care provider. Document Revised: 07/25/2022 Document Reviewed: 07/25/2022 [employer] Patient Education 2023 [employer]. Follow Up Care 12/27/2023 10:45:04 With:Sohail RICHEY Address: [facility] [email or web address] [place] [id number] Business (1) When:12/30/2023 13:29:41 [facility] 12-27-2023 Note ED Patient Education Note Urology Kidney Stones Kidney stones are solid, rock-like deposits that form inside of the kidneys. The kidneys are a pair of organs that make urine. A kidney stone may form in a kidney and move into other parts of the urinary tract, including the tubes that connect the kidneys to the bladder (ureters), the bladder, and the tube that carries urine out of the body (urethra). As the stone moves through these areas, it can cause intense pain and block the flow of urine. Kidney stones are created when high levels of certain minerals are found in the urine. The stones are usually passed out of the body through urination, but in some cases, medical treatment may be needed to remove them. What are the causes? Kidney stones may be caused by: ? A condition in which certain glands produce too much parathyroid hormone (primary hyperparathyroidism), which causes too much calcium buildup in the blood. ? A buildup of uric acid crystals in the bladder (hyperuricosuria). Uric acid is a chemical that the body produces when you eat certain foods. It usually leaves the body in the urine. ? Narrowing (stricture) of one or both of the ureters. ? A kidney blockage that is present at (congenital obstruction). ? Past surgery on the kidney or the ureters. What increases the risk? The following factors may make you more likely to develop this condition: ? Having had a kidney stone in the past. ? Having a family history of kidney stones. ? Not drinking enough water. ? Eating a diet that is high in protein, salt (sodium), or sugar. ? Being overweight or obese. What are the signs or symptoms? Symptoms of a kidney stone may include: ? Pain in the side of the abdomen, right below the ribs (flank pain). Pain usually spreads (radiates) to the groin. ? Needing to urinate often or urgently. ? Painful urination. ? Blood in the urine (hematuria). ? Nausea. ? Vomiting. ? Fever and chills. How is this diagnosed? This condition may be diagnosed based on: ? Your symptoms and medical history. ? A physical exam. ? Blood tests. ? Urine tests. These may be done before and after the stone passes out of your body through urination. ? Imaging tests, such as a CT scan, abdominal X-ray, or ultrasound. ? A procedure to examine the inside of the bladder (cystoscopy). How is this treated? Treatment for kidney stones depends on the size, location, and makeup of the stones. Kidney stones will often pass out of the body through urination. You may need to: ? Increase your fluid intake to help pass the stone. In some cases, you may be given fluids through an IV and may need to be monitored in the hospital. ? Take medicine for pain. ? Make changes in your diet to help prevent kidney stones from coming back. Sometimes, procedures are needed to remove a kidney stone. This may involve: ? A procedure to break up kidney stones using: ? A focused beam of light (laser therapy). ? Shock waves (extracorporeal shock wave lithotripsy). ? Surgery to remove kidney stones. This may be needed if you have severe pain or have stones that block your urinary tract. Follow these instructions at home: Medicines ? Take ygqn-fii-zgkssnq and prescription medicines only as told by your health care provider. ? Ask your health care provider if the medicine prescribed to you requires you to avoid driving or using heavy machinery. Eating and drinking ? Drink enough fluid to keep your urine pale yellow. You may be instructed to drink at least 8?10 glasses of water each day. This will help you pass the kidney stone. ? If directed, change your diet. This may include: ? Limiting how much sodium you eat. ? Eating more fruits and vegetables. ? Limiting how much animal protein you eat. Animal proteins include red meat, poultry, fish, and eggs. ? Eating a normal amount of calcium (1,000?1,300 mg per day). ? Follow instructions from your health care provider about eating or drinking restrictions. General instructions ? Collect urine samples as told by your health care provider. You may need to collect a urine sample: ? 24 hours after you pass the stone. ? 8?12 weeks after you pass the kidney stone, and every 6?12 months after that. ? Strain your urine every time you urinate, for as long as directed. Use the strainer that your health care provider recommends. ? Do not throw out the kidney stone after passing it. Keep the stone so it can be tested by your health care provider. Testing the makeup of your kidney stone may help prevent you from getting kidney stones in the future. ? Keep all follow-up visits. You may need follow-up X-rays or ultrasounds to make sure that your stone has passed. How is this prevented? To prevent another kidney stone: ? Drink enough fluid to keep your urine pale yellow. This is the best way to prevent kidney stones. ? Eat a healthy diet. (more content not included)... [facility] 08-14-2023 Hospital Discharge instructions Patient Education 08/14/2023 09:40:42 BMI for Adults BMI for Adults What is BMI? Body mass index (BMI) is a number that is calculated from a person's weight and height. BMI can help estimate how much of a person's weight is composed of fat. BMI does not measure body fat directly. Rather, it is an alternative to procedures that directly measure body fat, which can be difficult and expensive. BMI can help identify people who may be at higher risk for certain medical problems. What are BMI measurements used for? BMI is used as a screening tool to identify possible weight problems. It helps determine whether a person is obese, overweight, a healthy weight, or underweight. BMI is useful for: Identifying a weight problem that may be related to a medical condition or may increase the risk for medical problems. Promoting changes, such as changes in diet and exercise, to help reach a healthy weight. BMI screening can be repeated to see if these changes are working. How is BMI calculated? BMI involves measuring your weight in relation to your height. Both height and weight are measured, and the BMI is calculated from those numbers. This can be done either in [place] or metric measurements. Note that charts and online BMI calculators are available to help you find your BMI quickly and easily without having to do these calculations yourself. To calculate your BMI in [place] measurements: 1.Measure your weight in pounds (lb). 2.Multiply the number of pounds by 703. For example, for a person who weighs 180 lb, multiply that number by 703, which equals 126,540. 3.Measure your height in inches. Then multiply that number by itself to get a measurement called inches squared. For example, for a person who is 70 inches tall, the inches squared measurement is 70 inches x 70 inches, which equals 4,900 inches squared. 4.Divide the total from step 2 (number of lb x 703) by the total from step 3 (inches squared): 126,540 4,900 = 25.8. This is your BMI. To calculate your BMI in metric measurements: 1.Measure your weight in kilograms (kg). 2.Measure your height in meters (m). Then multiply that number by itself to get a measurement called meters squared. For example, for a person who is 1.75 m tall, the meters squared measurement is 1.75 m x 1.75 m, which is equal to 3.1 meters squared. 3.Divide the number of kilograms (your weight) by the meters squared number. In this example: 70 3.1 = 22.6. This is your BMI. What do the results mean? BMI charts are used to identify whether you are underweight, normal weight, overweight, or obese. The following guidelines will be used: Underweight: BMI less than 18.5. Normal weight: BMI between 18.5 and 24.9. Overweight: BMI between 25 and 29.9. Obese: BMI of 30 or above. Keep these notes in mind: Weight includes both fat and muscle, so someone with a muscular build, such as an athlete, may have a BMI that is higher than 24.9. In cases like these, BMI is not an accurate measure of body fat. To determine if excess body fat is the cause of a BMI of 25 or higher, further assessments may need to be done by a health care provider. BMI is usually interpreted in the same way for men and women. Where to find more information For more information about BMI, including tools to quickly calculate your BMI, go to these websites: Centers for Disease Control and Prevention: www.cdc.gov [place] [employer]: www.heart.org National Heart, Lung, and Blood [place]: www.nhlbi.nih.gov Summary Body mass index (BMI) is a number that is calculated from a person's weight and height. BMI may help estimate how much of a person's weight is composed of fat. BMI can help identify those who may be at higher risk for certain medical problems. BMI can be measured using [place]ese measurements or metric measurements. BMI charts are used to identify whether you are underweight, normal weight, overweight, or obese. This information is not intended to replace advice given to you by your health care provider. Make sure you discuss any questions you have with your health care provider. Document Revised: 01/06/2020 Document Reviewed: 11/13/2019 [employer] Patient Education 2022 [employer]. 08/14/2023 09:40:40 Sinus Infection, Adult, Yqte-ed-Qenh Sinus Infection, Adult A sinus infection is soreness and swelling (inflammation) of your sinuses. Sinuses are hollow spaces in the bones around your face. They are located: Around your eyes. In the middle of your forehead. Behind your nose. In your cheekbones. Your sinuses and nasal passages are lined with a fluid called mucus. Mucus drains out of your sinuses. Swelling can trap mucus in your sinuses. This lets germs (bacteria, virus, or fungus) grow, which leads to infection. Most of the time, this condition is caused by a virus. What are the causes? Allergies. Asthma. Germs. Things that block your nose or sinuses. Growths in the nose (nasal polyps). Chemicals or irritants in the air. A fungus. This is rare. What increases the risk? Having a weak body defense system (immune system). Doing a lot of swimming or diving. Using nasal sprays too much. Smoking. What are the signs or symptoms? The main symptoms of this condition are pain and a feeling of pressure around the sinuses. Other symptoms include: Stuffy nose (congestion). This may make it hard to breathe through your nose. Runny nose (drainage). Soreness, swelling, and warmth in the sinuses. A cough that may get worse at night. Being unable to smell and taste. Mucus that collects in the throat or the back of the nose (postnasal drip). This may cause a sore throat or bad breath. Being very tired (fatigued). A fever. How is this diagnosed? Your symptoms. Your medical history. A physical exam. Tests to find out if your condition is short-term (acute) or long-term (chronic). Your doctor may: ?Check your nose for growths (polyps). ?Check your sinuses using a tool that has a light on one end (endoscope). ?Check for allergies or germs. ?Do imaging tests, such as an MRI or CT scan. How is this treated? Treatment for this condition depends on the cause and whether it is short-term or long-term. If caused by a virus, your symptoms should go away on their own within 10 days. You may be given medicines to relieve symptoms. They include: ?Medicines that shrink swollen tissue in the nose. ?A spray that treats swelling of the nostrils. ?Rinses that help get rid of thick mucus in your nose (nasal saline washes). ?Medicines that treat allergies (antihistamines). ?Fltx-hoe-ayhhjyk pain relievers. If caused by bacteria, your doctor may wait to see if you will get better without treatment. You may be given antibiotic medicine if you have: ?A very bad infection. ?A weak body defense system. If caused by growths in the nose, surgery may be needed. Follow these instructions at home: Medicines Take, use, or apply njkz-gzv-zwzmocg and prescription medicines only as told by your doctor. These may include nasal sprays. If you were prescribed an antibiotic medicine, take it as told by your doctor. Do not stop taking it even if you start to feel better. Hydrate and humidify Drink enough water to keep your pee (urine) pale yellow. Use a cool mist humidifier to keep the humidity level in your home above 50%. Breathe in steam for 10 15 minutes, 3 4 times a day, or as told by your doctor. You can do this in the bathroom while a hot shower is running. Try not to spend time in cool or dry air. Rest Rest as much as you can. Sleep with your head raised (elevated). Make sure you get enough sleep each night. General instructions Put a warm, moist washcloth on your face 3 4 times a day, or as often as told by your doctor. Use nasal saline washes as often as told by your doctor. Wash your hands often with soap and water. If you cannot use soap and water, use hand pneumatic systems operator. Do not smoke. Avoid being around people who are smoking (secondhand smoke). Keep all follow-up visits. Contact a doctor if: You have a fever. Your symptoms get worse. Your symptoms do not get better within 10 days. Get help right away if: You have a very bad headache. You cannot stop vomiting. You have very bad pain or swelling around your face or eyes. You have trouble seeing. You feel confused. Your neck is stiff. You have trouble breathing. These symptoms may be an emergency. Get help right away. Call 911. Do not wait to see if the symptoms will go away. Do not drive yourself to the hospital. Summary A sinus infection is swelling of your sinuses. Sinuses are hollow spaces in the bones around your face. This condition is caused by tissues in your nose that become inflamed or swollen. This traps germs. These can lead to infection. If you were prescribed an antibiotic medicine, take it as told by your doctor. Do not stop taking it even if you start to feel better. Keep all follow-up visits. This information is not intended to replace advice given to you by your health care provider. Make sure you discuss any questions you have with your health care provider. Document Revised: 03/20/2022 Document Reviewed: 03/20/2022 [employer] Patient Education 2022 [employer]. Follow Up Care 08/14/2023 08:15:29 With:Link Marty CORTES FAM Address: [address] [place] [id number]- When: Unknown [facility] 08-09-2023 Hospital Discharge instructions Patient Education 08/09/2023 13:36:22 How to Take Your Blood Pressure, Eiui-xr-Niux How to Take Your Blood Pressure Blood pressure measures how strongly your blood is pressing against the urrutia of your arteries. Arteries are blood vessels that carry blood from your heart throughout your body. You can take your blood pressure at home with a machine. You may need to check your blood pressure at home: To check if you have high blood pressure (hypertension). To check your blood pressure over time. To make sure your blood pressure medicine is working. Supplies needed: Blood pressure machine, or monitor. A chair to sit in. This should be a chair where you can sit upright with your back supported. Do not sit on a soft couch or an armchair. Table or desk. Small notebook. Pencil or pen. How to prepare Avoid these things for 30 minutes before checking your blood pressure: Having drinks with caffeine in them, such as coffee or tea. Drinking alcohol. Eating. Smoking. Exercising. Do these things five minutes before checking your blood pressure: Go to the bathroom and pee (urinate). Sit in a chair. Be quiet. Do not talk. How to take your blood pressure Follow the instructions that came with your machine. If you have a digital blood pressure monitor, these may be the instructions: 1.Sit up straight. 2.Place your feet on the floor. Do not cross your ankles or legs. 3.Rest your left arm at the level of your heart. You may rest it on a table, desk, or chair. 4.Pull up your shirt sleeve. 5.Wrap the blood pressure cuff around the upper part of your left arm. The cuff should be 1 inch (2.5 cm) above your elbow. It is best to wrap the cuff around bare skin. 6.Fit the cuff snugly around your arm, but not too tightly. You should be able to place only one finger between the cuff and your arm. 7.Place the cord so that it rests in the bend of your elbow. 8.Press the power button. 9.Sit quietly while the cuff fills with air and loses air. 10.Write down the numbers on the screen. 11.Wait 2 3 minutes and then repeat steps 1 10. What do the numbers mean? Two numbers make up your blood pressure. The first number is called systolic pressure. The second is called diastolic pressure. An example of a blood pressure reading is 120 over 80 (or 120/80). If you are an adult and do not have a medical condition, use this guide to find out if your blood pressure is normal: Normal First number: below 120. Second number: below 80. Elevated First number: 120 129. Second number: below 80. Hypertension stage 1 First number: 130 139. Second number: 80 89. Hypertension stage 2 First number: 140 or above. Second number: 90 or above. Your blood pressure is above normal even if only the first or only the second number is above normal. Follow these instructions at home: Medicines Take sodx-sdj-ruxccsw and prescription medicines only as told by your doctor. Tell your doctor if your medicine is causing side effects. General instructions Check your blood pressure as often as your doctor tells you to. Check your blood pressure at the same time every day. Take your monitor to your next doctor's appointment. Your doctor will: ?Make sure you are using it correctly. ?Make sure it is working right. Understand what your blood pressure numbers should be. Keep all follow-up visits. General tips You will need a blood pressure machine or monitor. Your doctor can suggest a monitor. You can buy one at a [employer] or online. When choosing one: Choose one with an arm cuff. Choose one that wraps around your upper arm. Only one finger should fit between your arm and the cuff. Do not choose one that measures your blood pressure from your wrist or finger. Where to find more information [place] [employer]: www.heart.org Contact a doctor if: Your blood pressure keeps being high. Your blood pressure is suddenly low. Get help right away if: Your first blood pressure number is higher than 180. Your second blood pressure number is higher than 120. These symptoms may be an emergency. Do not wait to see if the symptoms will go away. Get help right away. Call 911. Summary Check your blood pressure at the same time every day. Avoid caffeine, alcohol, smoking, and exercise for 30 minutes before checking your blood pressure. Make sure you understand what your blood pressure numbers should be. This information is not intended to replace advice given to you by your health care provider. Make sure you discuss any questions you have with your health care provider. Document Revised: 12/28/2021 Document Reviewed: 12/28/2021 [employer] Patient Education 2022 [employer] Follow Up Care 08/02/2023 11:43:47 With:Link Marty CORTES FAM Address: [address] [place] [id number]- When:4 weeks Comments:4 WEEKS FOLLOWUP [facility] 08-09-2023 Hospital Discharge instructions Follow Up Care 08/09/2023 13:30:04 With:Link Marty CORTESTABITHA Address: [address] [address]- When:4 weeks Comments:4 WEEKS FOLLOWUP [facility] 08-09-2023 Note Procedures How to Take Your Blood Pressure Blood pressure measures how strongly your blood is pressing against the urrutia of your arteries. Arteries are blood vessels that carry blood from your heart throughout your body. You can take your blood pressure at home with a machine. You may need to check your blood pressure at home: ? To check if you have high blood pressure (hypertension). ? To check your blood pressure over time. ? To make sure your blood pressure medicine is working. Supplies needed: ? Blood pressure machine, or monitor. ? A chair to sit in. This should be a chair where you can sit upright with your back supported. Do not sit on a soft couch or an armchair. ? Table or desk. ? Small notebook. ? Pencil or pen. How to prepare Avoid these things for 30 minutes before checking your blood pressure: ? Having drinks with caffeine in them, such as coffee or tea. ? Drinking alcohol. ? Eating. ? Smoking. ? Exercising. Do these things five minutes before checking your blood pressure: ? Go to the bathroom and pee (urinate). ? Sit in a chair. ? Be quiet. Do not talk. How to take your blood pressure Follow the instructions that came with your machine. If you have a digital blood pressure monitor, these may be the instructions: 1. Sit up straight. 2. Place your feet on the floor. Do not cross your ankles or legs. 3. Rest your left arm at the level of your heart. You may rest it on a table, desk, or chair. 4. Pull up your shirt sleeve. 5. Wrap the blood pressure cuff around the upper part of your left arm. The cuff should be 1 inch (2.5 cm) above your elbow. It is best to wrap the cuff around bare skin. 6. Fit the cuff snugly around your arm, but not too tightly. You should be able to place only one finger between the cuff and your arm. 7. Place the cord so that it rests in the bend of your elbow. 8. Press the power button. 9. Sit quietly while the cuff fills with air and loses air. 10. Write down the numbers on the screen. 11. Wait 2?3 minutes and then repeat steps 1?10. What do the numbers mean? Two numbers make up your blood pressure. The first number is called systolic pressure. The second is called diastolic pressure. An example of a blood pressure reading is 120 over 80 (or 120/80). If you are an adult and do not have a medical condition, use this guide to find out if your blood pressure is normal: Normal ? First number: below 120. ? Second number: below 80. Elevated ? First number: 120?129. ? Second number: below 80. Hypertension stage 1 ? First number: 130?139. ? Second number: 80?89. Hypertension stage 2 ? First number: 140 or above. ? Second number: 90 or above. Your blood pressure is above normal even if only the first or only the second number is above normal. Follow these instructions at home: Medicines ? Take bcoc-ngk-pnbghhw and prescription medicines only as told by your doctor. ? Tell your doctor if your medicine is causing side effects. General instructions ? Check your blood pressure as often as your doctor tells you to. ? Check your blood pressure at the same time every day. ? Take your monitor to your next doctor's appointment. Your doctor will: ? Make sure you are using it correctly. ? Make sure it is working right. ? Understand what your blood pressure numbers should be. ? Keep all follow-up visits. General tips You will need a blood pressure machine or monitor. Your doctor can suggest a monitor. You can buy one at a [employer] or online. When choosing one: ? Choose one with an arm cuff. ? Choose one that wraps around your upper arm. Only one finger should fit between your arm and the cuff. ? Do not choose one that measures your blood pressure from your wrist or finger. Where to find more information [place] [employer]: www.heart.org Contact a doctor if: ? Your blood pressure keeps being high. ? Your blood pressure is suddenly low. Get help right away if: ? Your first blood pressure number is higher than 180. ? Your second blood pressure number is higher than 120. These symptoms may be an emergency. Do not wait to see if the symptoms will go away. Get help right away. Call 911. Summary ? Check your blood pressure at the same time every day. ? Avoid caffeine, alcohol, smoking, and exercise for 30 minutes before checking your blood pressure. ? Make sure you understand what your blood pressure numbers should be. This information is not intended to replace advice given to you by your health care provider. Make sure you discuss any questions you have with your health care provider. Document Revised: 12/28/2021 Document Reviewed: 12/28/2021 [employer] Patient Education ? 2022 [employer]. [facility] 04-16-2023 Hospital Discharge instructions Patient Education 04/16/2023 08:30:26 Colonoscopy, Adult Colonoscopy, Adult A colonoscopy is a procedure to look at the entire large intestine. This procedure is done using a long, thin, flexible tube that has a camera on the end. You may have a colonoscopy: As a part of normal colorectal screening. If you have certain symptoms, such as: ?A low number of red blood cells in your blood (anemia). ?Diarrhea that does not go away. ?Pain in your abdomen. ?Blood in your stool. A colonoscopy can help screen for and diagnose medical problems, including: An abnormal growth of cells or tissue (tumor). Abnormal growths within the lining of your intestine (polyps). Inflammation. Areas of bleeding. Tell your health care provider about: Any allergies you have. All medicines you are taking, including vitamins, herbs, eye drops, creams, and veta-cmt-posltgt medicines. Any problems you or family members have had with anesthetic medicines. Any bleeding problems you have. Any surgeries you have had. Any medical conditions you have. Any problems you have had with having bowel movements. Whether you are or may be . What are the risks? Generally, this is a safe procedure. However, problems may occur, including: Bleeding. Damage to your intestine. Allergic reactions to medicines given during the procedure. Infection. This is rare. What happens before the procedure? Eating and drinking restrictions Follow instructions from your health care provider about eating or drinking restrictions, which may include: A few days before the procedure: ?Follow a low-fiber diet. ?Avoid nuts, seeds, dried fruit, raw fruits, and vegetables. 1 3 days before the procedure: ?Eat only gelatin dessert or ice pops. ?Drink only clear liquids, such as water, clear juice, clear broth or bouillon, black coffee or tea, or clear soft drinks or sports drinks. ?Avoid liquids that contain red or purple dye. The day of the procedure: ?Do not eat solid foods. You may continue to drink clear liquids until up to 2 hours before the procedure. ?Do not eat or drink anything starting 2 hours before the procedure, or within the time period that your health care provider recommends. Bowel prep If you were prescribed a bowel prep to take by mouth (orally) to clean out your colon: Take it as told by your health care provider. Starting the day before your procedure, you will need to drink a large amount of liquid medicine. The liquid will cause you to have many bowel movements of loose stool until your stool becomes almost clear or light green. If your skin or the opening between the buttocks (anus) gets irritated from diarrhea, you may relieve the irritation using: ?Wipes with medicine in them, such as adult wet wipes with aloe and vitamin E. ?A product to soothe skin, such as petroleum jelly. If you vomit while drinking the bowel prep: ?Take a break for up to 60 minutes. ?Begin the bowel prep again. ?Call your health care provider if you keep vomiting or you cannot take the bowel prep without vomiting. To clean out your colon, you may also be given: ?Laxative medicines. These help you have a bowel movement. ?Instructions for enema use. An enema is liquid medicine injected into your rectum. Medicines Ask your health care provider about: Changing or stopping your regular medicines or supplements. This is especially important if you are taking iron supplements, diabetes medicines, or blood thinners. Taking medicines such as aspirin and ibuprofen. These medicines can thin your blood. Do not take these medicines unless your health care provider tells you to take them. Taking jgbl-xzd-pcoxhtc medicines, vitamins, herbs, and supplements. General instructions Ask your health care provider what steps will be taken to help prevent infection. These may include washing skin with a germ-killing soap. If you will be going home right after the procedure, plan to have a responsible adult: ?Take you home from the hospital or clinic. You will not be allowed to drive. ? Care for you for the time you are told. What happens during the procedure? An IV will be inserted into one of your veins. You will be given a medicine to make you fall asleep (general anesthetic). You will lie on your side with your knees bent. A lubricant will be put on the tube. Then the tube will be: ?Inserted into your anus. ?Gently eased through all parts of your large intestine. Air will be sent into your colon to keep it open. This may cause some pressure or cramping. Images will be taken with the camera and will appear on a screen. A small tissue sample may be removed to be looked at under a microscope (biopsy). The tissue may be sent to a lab for testing if any signs of problems are found. If small polyps are found, they may be removed and checked for cancer cells. When the procedure is finished, the tube will be removed. The procedure may vary among health care providers and hospitals. What happens after the procedure? Your blood pressure, heart rate, breathing rate, and blood oxygen level will be monitored until you leave the hospital or clinic. You may have a small amount of blood in your stool. You may pass gas and have mild cramping or bloating in your abdomen. This is caused by the air that was used to open your colon during the exam. If you were given a sedative during the procedure, it can affect you for several hours. Do not drive or operate machinery until your health care provider says that it is safe. It is up to you to get the results of your procedure. Ask your health care provider, or the department that is doing the procedure, when your results will be ready. Summary A colonoscopy is a procedure to look at the entire large intestine. Follow instructions from your health care provider about eating and drinking before the procedure. If you were prescribed an oral bowel prep to clean out your colon, take it as told by your health care provider. During the colonoscopy, a flexible tube with a camera on its end is inserted into the anus and then passed into all parts of the large intestine. This information is not intended to replace advice given to you by your health care provider. Make sure you discuss any questions you have with your health care provider. Document Revised: 04/09/2022 Document Reviewed: 12/06/2021 [employer] Patient Education 2022 [employer]. Follow Up Care 03/22/2023 08:03:23 With:Nany Queen CNP Address: When:1 to 2 weeks Comments:Follow-up following colonoscopy. [facility] 04-16-2023 Note Radiology Colonoscopy, Adult A colonoscopy is a procedure to look at the entire large intestine. This procedure is done using a long, thin, flexible tube that has a camera on the end. You may have a colonoscopy: ? As a part of normal colorectal screening. ? If you have certain symptoms, such as: ? A low number of red blood cells in your blood (anemia). ? Diarrhea that does not go away. ? Pain in your abdomen. ? Blood in your stool. A colonoscopy can help screen for and diagnose medical problems, including: ? An abnormal growth of cells or tissue (tumor). ? Abnormal growths within the lining of your intestine (polyps). ? Inflammation. ? Areas of bleeding. Tell your health care provider about: ? Any allergies you have. ? All medicines you are taking, including vitamins, herbs, eye drops, creams, and urgk-uxg-yggpqgk medicines. ? Any problems you or family members have had with anesthetic medicines. ? Any bleeding problems you have. ? Any surgeries you have had. ? Any medical conditions you have. ? Any problems you have had with having bowel movements. ? Whether you are or may be . What are the risks? Generally, this is a safe procedure. However, problems may occur, including: ? Bleeding. ? Damage to your intestine. ? Allergic reactions to medicines given during the procedure. ? Infection. This is rare. What happens before the procedure? Eating and drinking restrictions Follow instructions from your health care provider about eating or drinking restrictions, which may include: ? A few days before the procedure: ? Follow a low-fiber diet. ? Avoid nuts, seeds, dried fruit, raw fruits, and vegetables. ? 1?3 days before the procedure: ? Eat only gelatin dessert or ice pops. ? Drink only clear liquids, such as water, clear juice, clear broth or bouillon, black coffee or tea, or clear soft drinks or sports drinks. ? Avoid liquids that contain red or purple dye. ? The day of the procedure: ? Do not eat solid foods. You may continue to drink clear liquids until up to 2 hours before the procedure. ? Do not eat or drink anything starting 2 hours before the procedure, or within the time period that your health care provider recommends. Bowel prep If you were prescribed a bowel prep to take by mouth (orally) to clean out your colon: ? Take it as told by your health care provider. Starting the day before your procedure, you will need to drink a large amount of liquid medicine. The liquid will cause you to have many bowel movements of loose stool until your stool becomes almost clear or light green. ? If your skin or the opening between the buttocks (anus) gets irritated from diarrhea, you may relieve the irritation using: ? Wipes with medicine in them, such as adult wet wipes with aloe and vitamin E. ? A product to soothe skin, such as petroleum jelly. ? If you vomit while drinking the bowel prep: ? Take a break for up to 60 minutes. ? Begin the bowel prep again. ? Call your health care provider if you keep vomiting or you cannot take the bowel prep without vomiting. ? To clean out your colon, you may also be given: ? Laxative medicines. These help you have a bowel movement. ? Instructions for enema use. An enema is liquid medicine injected into your rectum. Medicines Ask your health care provider about: ? Changing or stopping your regular medicines or supplements. This is especially important if you are taking iron supplements, diabetes medicines, or blood thinners. ? Taking medicines such as aspirin and ibuprofen. These medicines can thin your blood. Do not take these medicines unless your health care provider tells you to take them. ? Taking qlke-jxt-boahdfv medicines, vitamins, herbs, and supplements. General instructions ? Ask your health care provider what steps will be taken to help prevent infection. These may include washing skin with a germ-killing soap. ? If you will be going home right after the procedure, plan to have a responsible adult: ? Take you home from the hospital or clinic. You will not be allowed to drive. ? Care for you for the time you are told. What happens during the procedure? ? An IV will be inserted into one of your veins. ? You will be given a medicine to make you fall asleep (general anesthetic). ? You will lie on your side with your knees bent. ? A lubricant will be put on the tube. Then the tube will be: ? Inserted into your anus. ? Gently eased through all parts of your large intestine. ? Air will be sent into your colon to keep it open. This may cause some pressure or cramping. ? Images will be taken with the camera and will appear on a screen. ? A small tissue sample may be removed to be looked at under a microscope (biopsy). The tissue may be sent to a lab for testing if any signs of problems are found. ? If small polyps are found, they may be removed and checked for cancer cells. (more content not included)... [facility] 02-17-2023 Hospital Discharge instructions Patient Education 02/17/2023 15:57:04 Earwax Buildup, Adult Earwax Buildup, Adult The ears produce a substance called earwax that helps keep bacteria out of the ear and protects the skin in the ear canal. Occasionally, earwax can build up in the ear and cause discomfort or hearing loss. What are the causes? This condition is caused by a buildup of earwax. Ear canals are self-cleaning. Ear wax is made in the outer part of the ear canal and generally falls out in small amounts over time. When the self-cleaning mechanism is not working, earwax builds up and can cause decreased hearing and discomfort. Attempting to clean ears with cotton swabs can push the earwax deep into the ear canal and cause decreased hearing and pain. What increases the risk? This condition is more likely to develop in people who: Clean their ears often with cotton swabs. Pick at their ears. Use earplugs or in-ear headphones often, or wear hearing aids. The following factors may also make you more likely to develop this condition: Being male. Being of older age. Naturally producing more earwax. Having narrow ear canals. Having earwax that is overly thick or sticky. Having excess hair in the ear canal. Having eczema. Being dehydrated. What are the signs or symptoms? Symptoms of this condition include: Reduced or muffled hearing. A feeling of fullness in the ear or feeling that the ear is plugged. Fluid coming from the ear. Ear pain or an itchy ear. Ringing in the ear. Coughing. Balance problems. An obvious piece of earwax that can be seen inside the ear canal. How is this diagnosed? This condition may be diagnosed based on: Your symptoms. Your medical history. An ear exam. During the exam, your health care provider will look into your ear with an instrument called an otoscope. You may have tests, including a hearing test. How is this treated? This condition may be treated by: Using ear drops to soften the earwax. Having the earwax removed by a health care provider. The health care provider may: ?Flush the ear with water. ?Use an instrument that has a loop on the end (curette). ?Use a suction device. Having surgery to remove the wax buildup. This may be done in severe cases. Follow these instructions at home: Take ovyf-cbe-wxvfmuz and prescription medicines only as told by your health care provider. Do not put any objects, including cotton swabs, into your ear. You can clean the opening of your ear canal with a washcloth or facial tissue. Follow instructions from your health care provider about cleaning your ears. Do not overclean your ears. Drink enough fluid to keep your urine pale yellow. This will help to thin the earwax. Keep all follow-up visits as told. If earwax builds up in your ears often or if you use hearing aids, consider seeing your health care provider for routine, preventive ear cleanings. Ask your health care provider how often you should schedule your cleanings. If you have hearing aids, clean them according to instructions from the bulk sealer operator and your health care provider. Contact a health care provider if: You have ear pain. You develop a fever. You have pus or other fluid coming from your ear. You have hearing loss. You have ringing in your ears that does not go away. You feel like the room is spinning (vertigo). Your symptoms do not improve with treatment. Get help right away if: You have bleeding from the affected ear. You have severe ear pain. Summary Earwax can build up in the ear and cause discomfort or hearing loss. The most common symptoms of this condition include reduced or muffled hearing, a feeling of fullness in the ear, or feeling that the ear is plugged. This condition may be diagnosed based on your symptoms, your medical history, and an ear exam. This condition may be treated by using ear drops to soften the earwax or by having the earwax removed by a health care provider. Do not put any objects, including cotton swabs, into your ear. You can clean the opening of your ear canal with a washcloth or facial tissue. This information is not intended to replace advice given to you by your health care provider. Make sure you discuss any questions you have with your health care provider. Document Revised: 08/02/2020 Document Reviewed: 08/02/2020 [employer] Patient Education 2022 [employer]. Follow Up Care 02/17/2023 15:05:56 With:CORA BRANHAM Address: [address] [place], [place] [id number] Business (1) When:02/20/2023 15:56:52 Comments:Call the office of your primary care doctor to arrange for follow-up within the above-stated timeframe. Follow-up with your primary care doctor about this ED visit. You should review your labs, imaging, and diagnoses from this ED visit with your primary care physician. If you were prescribed medications you should discuss possible side-effects and drug interactions with your pharmacist. Call 911 or go to the nearest Emergency Department if you develop any new or worsening symptoms. [facility] 02-17-2023 Evaluation + Plan note Extrac dante from: Title:ED Note Author:Dylan Shoemaker PA-C Brandt e:02/17/23 Cerumen impaction (H61.20: I mpacted cerumen, unspecified ear) Future Appointments Appointment Date:02/25/2023 08:00:00 AM Scheduled Provider: Location:[facility] Appointment Type: Nurse Visit Appointment Date:02/18/2024 11:00:00 AM Scheduled Provider: Location:[facility] Appointment Type: Medicare Wellness Initial Future Scheduled Tests Radiology* XR Abdomen 1 View 11/13/22 * XR Ankle 3+ Views Left 01/31/23 * XR Calcaneus Left 01/31/23 [facility]10-18-2023 Hospital Discharge instructions Patient Education 02/13/2023 21:27:38 Sinus Infection, Adult, Chxz-eo-Qvnc Sinus Infection, Adult A sinus infection is soreness and swelling (inflammation) of your sinuses. Sinuses are hollow spaces in the bones around your face. They are located: Around your eyes. In the middle of your forehead. Behind your nose. In your cheekbones. Your sinuses and nasal passages are lined with a fluid called mucus. Mucus drains out of your sinuses. Swelling can trap mucus in your sinuses. This lets germs (bacteria, virus, or fungus) grow, which leads to infection. Most of the time, this condition is caused by a virus. What are the causes? Allergies. Asthma. Germs. Things that block your nose or sinuses. Growths in the nose (nasal polyps). Chemicals or irritants in the air. A fungus. This is rare. What increases the risk? Having a weak body defense system (immune system). Doing a lot of swimming or diving. Using nasal sprays too much. Smoking. What are the signs or symptoms? The main symptoms of this condition are pain and a feeling of pressure around the sinuses. Other symptoms include: Stuffy nose (congestion). This may make it hard to breathe through your nose. Runny nose (drainage). Soreness, swelling, and warmth in the sinuses. A cough that may get worse at night. Being unable to smell and taste. Mucus that collects in the throat or the back of the nose (postnasal drip). This may cause a sore throat or bad breath. Being very tired (fatigued). A fever. How is this diagnosed? Your symptoms. Your medical history. A physical exam. Tests to find out if your condition is short-term (acute) or long-term (chronic). Your doctor may: ?Check your nose for growths (polyps). ?Check your sinuses using a tool that has a light on one end (endoscope). ?Check for allergies or germs. ?Do imaging tests, such as an MRI or CT scan. How is this treated? Treatment for this condition depends on the cause and whether it is short-term or long-term. If caused by a virus, your symptoms should go away on their own within 10 days. You may be given medicines to relieve symptoms. They include: ?Medicines that shrink swollen tissue in the nose. ?A spray that treats swelling of the nostrils. ?Rinses that help get rid of thick mucus in your nose (nasal saline washes). ?Medicines that treat allergies (antihistamines). ?Galn-vhp-dphxbav pain relievers. If caused by bacteria, your doctor may wait to see if you will get better without treatment. You may be given antibiotic medicine if you have: ?A very bad infection. ?A weak body defense system. If caused by growths in the nose, surgery may be needed. Follow these instructions at home: Medicines Take, use, or apply hbnn-ojz-lblgyrb and prescription medicines only as told by your doctor. These may include nasal sprays. If you were prescribed an antibiotic medicine, take it as told by your doctor. Do not stop taking it even if you start to feel better. Hydrate and humidify Drink enough water to keep your pee (urine) pale yellow. Use a cool mist humidifier to keep the humidity level in your home above 50%. Breathe in steam for 10 15 minutes, 3 4 times a day, or as told by your doctor. You can do this in the bathroom while a hot shower is running. Try not to spend time in cool or dry air. Rest Rest as much as you can. Sleep with your head raised (elevated). Make sure you get enough sleep each night. General instructions Put a warm, moist washcloth on your face 3 4 times a day, or as often as told by your doctor. Use nasal saline washes as often as told by your doctor. Wash your hands often with soap and water. If you cannot use soap and water, use hand pneumatic systems operator. Do not smoke. Avoid being around people who are smoking (secondhand smoke). Keep all follow-up visits. Contact a doctor if: You have a fever. Your symptoms get worse. Your symptoms do not get better within 10 days. Get help right away if: You have a very bad headache. You cannot stop vomiting. You have very bad pain or swelling around your face or eyes. You have trouble seeing. You feel confused. Your neck is stiff. You have trouble breathing. These symptoms may be an emergency. Get help right away. Call 911. Do not wait to see if the symptoms will go away. Do not drive yourself to the hospital. Summary A sinus infection is swelling of your sinuses. Sinuses are hollow spaces in the bones around your face. This condition is caused by tissues in your nose that become inflamed or swollen. This traps germs.These can lead to infection. If you were prescribed an antibiotic medicine, take it as told by your doctor. Do not stop taking it even if you start to feel better. Keep all follow-up visits. This information is not intended to replace advice given to you by your health care provider. Make sure you discuss any questions you have with your health care provider. Document Revised: 03/20/2022 Document Reviewed: 03/20/2022 [employer]Where [employer] Be[employer] Patient Education 2022 [employer]. [facility] 07-18-2023 Evaluation + Plan note Future Scheduled Tests Radiology* XR Abdomen 1 View 11/13/22 * MA Mamm Screen w/CAD if perf and 3D [place] 12/13/21 [facility] 02-20-2023 Hospital Discharge instructions Follow Up Care 06/18/2022 12:55:02 With:KAITLIN DOLL, Gilberto Jose, URL Address: [facility] [address], [place] [address] [phone] When: Unknown [facility] 02-16-2023 Hospital Discharge instructions Patient Education 06/14/2022 09:26:41 Dietary Guidelines to Help Prevent Kidney Stones Dietary Guidelines to Help Prevent Kidney Stones Kidney stones are deposits of minerals and salts that form inside your kidneys. Your risk of developing kidney stones may be greater depending on your diet, your lifestyle, the medicines you take, and whether you have certain medical conditions. Most people can reduce their chances of developing kidney stones by following the instructions below. Depending on your overall health and the type of kidney stones you tend to develop, your dietitian may give you more specific instructions. What are tips for following this plan? Reading food labels Choose foods with no salt added or low-salt labels. Limit your sodium intake to less than 1500 mg per day. Choose foods with calcium for each meal and snack. Try to eat about 300 mg of calcium at each meal.Foods that contain 200 500 mg of calcium per serving include: ?8 oz (237 ml) of milk, fortified nondairy milk, and fortified fruit juice. ?8 oz (237 ml) of kefir, yogurt, and soy yogurt. ?4 oz (118 ml) of tofu. ?1 oz of cheese. ?1 cup (300 g) of dried figs. ?1 cup (91 g) of cooked broccoli. ?1 3 oz can of sardines or mackerel. Most people need 1000 to 1500 mg of calcium each day. Talk to your dietitian about how much calciumis recommended for you. Shopping Buy plenty of fresh fruits and vegetables. Most people do not need to avoid fruits and vegetables, even if they contain nutrients that may contribute to kidney stones. When shopping for convenience foods, choose: ?Whole pieces of fruit. ?Premade salads with dressing on the side. ?Low-fat fruit and yogurt smoothies. Avoid buying frozen meals or prepared deli foods. Look for foods with live cultures, such as yogurt and kefir. Cooking Do not add salt to food when cooking. Place a salt shaker on the table and allow each person to addhis or her own salt to taste. Use vegetable protein, such as beans, textured vegetable protein (TVP), or tofu instead of meat in pasta, casseroles, and soups. Meal planning Eat less salt, if told by your dietitian. To do this: ?Avoid eating processed or premade food. ?Avoid eating fast food. Eat less animal protein, including cheese, meat, poultry, or fish, if told by your dietitian. To dothis: ?Limit the number of times you have meat, poultry, fish, or cheese each week. Eat a diet free of meat at least 2 days a week. ?Eat only one serving each day of meat, poultry, fish, or seafood. ?When you prepare animal protein, cut pieces into small portion sizes. For most meat and fish, one serving is about the size of one deck of cards. Eat at least 5 servings of fresh fruits and vegetables each day. To do this: ?Keep fruits and vegetables on hand for snacks. ?Eat 1 piece of fruit or a handful of berries with breakfast. ?Have a salad and fruit at lunch. ?Have two kinds of vegetables at dinner. Limit foods that are high in a substance called oxalate. These include: ?Spinach. ?Rhubarb. ?Beets. ?Potato chips and moroccan fries. ?Nuts. If you regularly take a diuretic medicine, make sure to eat at least 1 2 fruits or vegetables high in potassium each day. These include: ?Avocado. ?Banana. ?Horton, prune, carrot, or tomato juice. ?Baked potato. ?Cabbage. ?Beans and split peas. General instructions Drink enough fluid to keep your urine clear or pale yellow. This is the most important thing you can do. Talk to your health care provider and dietitian about taking daily supplements. Depending on your health and the cause of your kidney stones, you may be advised: ?Not to take supplements with vitamin C. ?To take a calcium supplement. ?To take a daily probiotic supplement. ?To take other supplements such as magnesium, fish oil, or vitamin B6. Take all medicines and supplements as told by your health care provider. Limit alcohol intake to no more than 1 drink a day for non women and 2 drinks a day for men. One drink equals 12 oz of beer, 5 oz of wine, or 1 oz of hard liquor. Lose weight if told by your health care provider. Work with your dietitian to find strategies and an eating plan that works best for you. What foods are not recommended? Limit your intake of the following foods, or as told by your dietitian. Talk to your dietitian about specific foods you should avoid based on the type of kidney stones and your overall health. Grains Breads. Bagels. Rolls. Baked goods. Salted crackers. Cereal. Pasta. Vegetables Spinach. Rhubarb. Beets. Canned vegetables. Pickles. Olives. Meats and other protein foods Nuts. Nut butters. Large portions of meat, poultry, or fish. Salted or cured meats. Deli meats. Hotdogs. Sausages. Dairy Cheese. Beverages Regular soft drinks. Regular vegetable juice. Seasonings and other foods Seasoning blends with salt. Salad dressings. Canned soups. Soy sauce. Ketchup. Barbecue sauce. Canned pasta sauce. Casseroles. Pizza. Lasagna. Frozen meals. Potato chips. Ivorian fries. Summary You can reduce your risk of kidney stones by making changes to your diet. The most important thing you can do is drink enough fluid. You should drink enough fluid to keep your urine clear or pale yellow. Ask your health care provider or dietitian how much protein from animal sources you should eat eachday, and also how much salt and calcium you should have each day. This information is not intended to replace advice given to you by your health care provider. Make sure you discuss any questions you have with your health care provider. Document Released: 08/10/2011 Document Revised: 08/05/2019 Document Reviewed: 03/26/2017 [employer]Where I[employer] Been Patient Education 2019 [employer]. [facility] 07-06-2022 Hospital Discharge instructions Patient Education 11/01/2021 12:30:56 Kidney Stones Kidney Stones Kidney stones are solid, rock-like deposits that form inside of the kidneys. The kidneys are a pairof organs that make urine. A kidney stone may form in a kidney and move into other parts of the urinary tract, including the tubes that connect the kidneys to the bladder (ureters), the bladder, and the tube that carries urine out of the body (urethra). As the stone moves through these areas, it can cause intense pain and block the flow of urine. Kidney stones are created when high levels of certain minerals are found in the urine. The stones are usually passed out of the body through urination, but in some cases, medical treatment may be needed to remove them. What are the causes? Kidney stones may be caused by: A condition in which certain glands produce too much parathyroid hormone (primary hyperparathyroidism), which causes too much calcium buildup in the blood. A buildup of uric acid crystals in the bladder (hyperuricosuria). Uric acid is a chemical that the body produces when you eat certain foods. It usually exits the body in the urine. Narrowing (stricture) of one or both of the ureters. A kidney blockage that is present at (congenital obstruction). Past surgery on the kidney or the ureters, such as gastric bypass surgery. What increases the risk? The following factors may make you more likely to develop this condition: Having had a kidney stone in the past. Having a family history of kidney stones. Not drinking enough water. Eating a diet that is high in protein, salt (sodium), or sugar. Being overweight or obese. What are the signs or symptoms? Symptoms of a kidney stone may include: Pain in the side of the abdomen, right below the ribs (flank pain). Pain usually spreads (radiates)to the groin. Needing to urinate frequently or urgently. Painful urination. Blood in the urine (hematuria). Nausea. Vomiting. Fever and chills. How is this diagnosed? This condition may be diagnosed based on: Your symptoms and medical history. A physical exam. Blood tests. Urine tests. These may be done before and after the stone passes out of your body through urination. Imaging tests, such as a CT scan, abdominal X-ray, or ultrasound. A procedure to examine the inside of the bladder (cystoscopy). How is this treated? Treatment for kidney stones depends on the size, location, and makeup of the stones. Kidney stones will often pass out of the body through urination. You may need to: Increase your fluid intake to help pass the stone. In some cases, you may be given fluids through an IV and may need to be monitored at the hospital. Take medicine for pain. Make changes in your diet to help prevent kidney stones from coming back. Sometimes, medical procedures are needed to remove a kidney stone. This may involve: A procedure to break up kidney stones using: ?A focused beam of light (laser therapy). ?Shock waves (extracorporeal shock wave lithotripsy). Surgery to remove kidney stones. This may be needed if you have severe pain or have stones that block your urinary tract. Follow these instructions at home: Medicines Take tcys-shr-obfychf and prescription medicines only as told by your health care provider. Ask your health care provider if the medicine prescribed to you requires you to avoid driving or using heavy machinery. Eating and drinking Drink enough fluid to keep your urine pale yellow. You may be instructed to drink at least 8 10 glasses of water each day. This will help you pass the kidney stone. If directed, change your diet. This may include: ?Limiting how much sodium you eat. ?Eating more fruits and vegetables. ?Limiting how much animal protein such as red meat, poultry, fish, and eggs you eat. Follow instructions from your health care provider about eating or drinking restrictions. General instructions Collect urine samples as told by your health care provider. You may need to collect a urine sample: ?24 hours after you pass the stone. ?8 12 weeks after passing the kidney stone, and every 6 12 months after that. Strain your urine every time you urinate, for as long as directed. Use the strainer that your health care provider recommends. Do not throw out the kidney stone after passing it. Keep the stone so it can be tested by your health care provider. Testing the makeup of your kidney stone may help prevent you from getting kidney stones in the future. Keep all follow-up visits as told by your health care provider. This is important. You may need follow-up X-rays or ultrasounds to make sure that your stone has passed. How is this prevented? To prevent another kidney stone: Drink enough fluid to keep your urine pale yellow. This is the best way to prevent kidney stones. Eat a healthy diet and follow recommendations from your health care provider about foods to avoid. You may be instructed to eat a low-protein diet. Recommendations vary depending on the type of kidney stone that you have. Maintain a healthy weight. Where to find more information National Kidney Foundation (NKF): www.kidney.org Urology Care Foundation (UCF): www.urologyhealth.org Contact a health care provider if: You have pain that gets worse or does not get better with medicine. Get help right away if: You have a fever or chills. You develop severe pain. You develop new abdominal pain. You faint. You are unable to urinate. Summary Kidney stones are solid, rock-like deposits that form inside of the kidneys. Kidney stones can cause nausea, vomiting, blood in the urine, abdominal pain, and the urge to urinate frequently. Treatment for kidney stones depends on the size, location, and makeup of the stones. Kidney stones will often pass out of the body through urination. Kidney stones can be prevented by drinking enough fluids, eating a healthy diet, and maintaining a healthy weight. This information is not intended to replace advice given to you by your health care provider. Make sure you discuss any questions you have with your health care provider. Document Released: 04/15/2006 Document Revised: 09/01/2019 Document Reviewed: 09/01/2019 [employer] Patient Education 2019 [employer]. Follow Up Care 10/20/2021 10:27:54 With:KAITLIN DOLL, Gilberto Jose, URL Address: [facility] [address] , [place] [address]- When: Unknown Comments:schedule ESWL [facility] [place] 06-24-2022 Hospital Discharge instructions Patient Education 10/20/2021 10:19:57 Kidney Stones, Nvry-vo-Szna Kidney Stones Kidney stones are rock-like masses that form inside of the kidneys. Kidneys are organs that make pee (urine). A kidney stone may move into other parts of the urinary tract, including: The tubes that connect the kidneys to the bladder (ureters). The bladder. The tube that carries urine out of the body (urethra). Kidney stones can cause very bad pain and can block the flow of pee. The stone usually leaves your body (passes) through your pee. You may need to have a doctor take out the stone. What are the causes? Kidney stones may be caused by: A condition in which certain glands make too much parathyroid hormone (primary hyperparathyroidism). A buildup of a type of crystals in the bladder made of a chemical called uric acid. The body makes uric acid when you eat certain foods. Narrowing (stricture) of one or both of the ureters. A kidney blockage that you were born with. Past surgery on the kidney or the ureters, such as gastric bypass surgery. What increases the risk? You are more likely to develop this condition if: You have had a kidney stone in the past. You have a family history of kidney stones. You do not drink enough water. You eat a diet that is high in protein, salt (sodium), or sugar. You are overweight or very overweight (obese). What are the signs or symptoms? Symptoms of a kidney stone may include: Pain in the side of the belly, right below the ribs (flank pain). Pain usually spreads (radiates) to the groin. Needing to pee often or right away (urgently). Pain when going pee (urinating). Blood in your pee (hematuria). Feeling like you may vomit (nauseous). Vomiting. Fever and chills. How is this treated? Treatment depends on the size, location, and makeup of the kidney stones. The stones will often pass out of the body through peeing. You may need to: Drink more fluid to help pass the stone. In some cases, you may be given fluids through an IV tube put into one of your veins at the hospital. Take medicine for pain. Make changes in your diet to help keep kidney stones from coming back. Sometimes, medical procedures are needed to remove a kidney stone. This may involve: A procedure to break up kidney stones using a beam of light (laser) or shock waves. Surgery to remove the kidney stones. Follow these instructions at home: Medicines Take hamx-enl-ilblfnh and prescription medicines only as told by your doctor. Ask your doctor if the medicine prescribed to you requires you to avoid driving or using heavy machinery. Eating and drinking Drink enough fluid to keep your pee pale yellow. You may be told to drink at least 8 10 glasses of water each day. This will help you pass the stone. If told by your doctor, change your diet. This may include: ?Limiting how much salt you eat. ?Eating more fruits and vegetables. ?Limiting how much meat, poultry, fish, and eggs you eat. Follow instructions from your doctor about eating or drinking restrictions. General instructions Collect pee samples as told by your doctor. You may need to collect a pee sample: ?24 hours after a stone comes out. ?8 12 weeks after a stone comes out, and every 6 12 months after that. Strain your pee every time you pee (urinate), for as long as told. Use the strainer that your doctor recommends. Do not throw out the stone. Keep it so that it can be tested by your doctor. Keep all follow-up visits as told by your doctor. This is important. You may need follow-up tests. How is this prevented? To prevent another kidney stone: Drink enough fluid to keep your pee pale yellow. This is the best way to prevent kidney stones. Eat healthy foods. Avoid certain foods as told by your doctor. You may be told to eat less protein. Stay at a healthy weight. Where to find more information National Kidney Foundation (NKF): www.kidney.org Urology Care Foundation (UCF): www.urologyhealth.org Contact a doctor if: You have pain that gets worse or does not get better with medicine. Get help right away if: You have a fever or chills. You get very bad pain. You get new pain in your belly (abdomen). You pass out (faint). You cannot pee. Summary Kidney stones are rock-like masses that form inside of the kidneys. Kidney stones can cause very bad pain and can block the flow of pee. The stones will often pass out of the body through peeing. Drink enough fluid to keep your pee pale yellow. This information is not intended to replace advice given to you by your health care provider. Make sure you discuss any questions you have with your health care provider. Document Released: 10/01/2008 Document Revised: 09/01/2019 Document Reviewed: 09/01/2019 [employer] Patient Education 2019 [employer]. Follow Up Care 10/20/2021 08:28:58 With:KAITLIN DOLL, Gilberto Jose, SADIQL Address: [address] [place] [address] [place] [address]- When:1 to 2 weeks Comments:w/ RAMIN [facility] [place] 06-22-2022 Hospital Discharge instructions Patient Education 10/18/2021 20:55:57 Kidney Stones Kidney Stones Kidney stones are solid, rock-like deposits that form inside of the kidneys. The kidneys are a pairof organs that make urine. A kidney stone may form in a kidney and move into other parts of the urinary tract, including the tubes that connect the kidneys to the bladder (ureters), the bladder, and the tube that carries urine out of the body (urethra). As the stone moves through these areas, it can cause intense pain and block the flow of urine. Kidney stones are created when high levels of certain minerals are found in the urine. The stones are usually passed out of the body through urination, but in some cases, medical treatment may be needed to remove them. What are the causes? Kidney stones may be caused by: A condition in which certain glands produce too much parathyroid hormone (primary hyperparathyroidism), which causes too much calcium buildup in the blood. A buildup of uric acid crystals in the bladder (hyperuricosuria). Uric acid is a chemical that the body produces when you eat certain foods. It usually exits the body in the urine. Narrowing (stricture) of one or both of the ureters. A kidney blockage that is present at (congenital obstruction). Past surgery on the kidney or the ureters, such as gastric bypass surgery. What increases the risk? The following factors may make you more likely to develop this condition: Having had a kidney stone in the past. Having a family history of kidney stones. Not drinking enough water. Eating a diet that is high in protein, salt (sodium), or sugar. Being overweight or obese. What are the signs or symptoms? Symptoms of a kidney stone may include: Pain in the side of the abdomen, right below the ribs (flank pain). Pain usually spreads (radiates)to the groin. Needing to urinate frequently or urgently. Painful urination. Blood in the urine (hematuria). Nausea. Vomiting. Fever and chills. How is this diagnosed? This condition may be diagnosed based on: Your symptoms and medical history. A physical exam. Blood tests. Urine tests. These may be done before and after the stone passes out of your body through urination. Imaging tests, such as a CT scan, abdominal X-ray, or ultrasound. A procedure to examine the inside of the bladder (cystoscopy). How is this treated? Treatment for kidney stones depends on the size, location, and makeup of the stones. Kidney stones will often pass out of the body through urination. You may need to: Increase your fluid intake to help pass the stone. In some cases, you may be given fluids through an IV and may need to be monitored at the hospital. Take medicine for pain. Make changes in your diet to help prevent kidney stones from coming back. Sometimes, medical procedures are needed to remove a kidney stone. This may involve: A procedure to break up kidney stones using: ?A focused beam of light (laser therapy). ?Shock waves (extracorporeal shock wave lithotripsy). Surgery to remove kidney stones. This may be needed if you have severe pain or have stones that block your urinary tract. Follow these instructions at home: Medicines Take jtaq-lfb-yzpdzyp and prescription medicines only as told by your health care provider. Ask your health care provider if the medicine prescribed to you requires you to avoid driving or using heavy machinery. Eating and drinking Drink enough fluid to keep your urine pale yellow. You may be instructed to drink at least 8 10 glasses of water each day. This will help you pass the kidney stone. If directed, change your diet. This may include: ?Limiting how much sodium you eat. ?Eating more fruits and vegetables. ?Limiting how much animal protein such as red meat, poultry, fish, and eggs you eat. Follow instructions from your health care provider about eating or drinking restrictions. General instructions Collect urine samples as told by your health care provider. You may need to collect a urine sample: ?24 hours after you pass the stone. ?8 12 weeks after passing the kidney stone, and every 6 12 months after that. Strain your urine every time you urinate, for as long as directed. Use the strainer that your health care provider recommends. Do not throw out the kidney stone after passing it. Keep the stone so it can be tested by your health care provider. Testing the makeup of your kidney stone may help prevent you from getting kidney stones in the future. Keep all follow-up visits as told by your health care provider. This is important. You may need follow-up X-rays or ultrasounds to make sure that your stone has passed. How is this prevented? To prevent another kidney stone: Drink enough fluid to keep your urine pale yellow. This is the best way to prevent kidney stones. Eat a healthy diet and follow recommendations from your health care provider about foods to avoid. You may be instructed to eat a low-protein diet. Recommendations vary depending on the type of kidney stone that you have. Maintain a healthy weight. Where to find more information National Kidney Foundation (NKF): www.kidney.org Urology Care Foundation (UCF): www.urologyhealth.org Contact a health care provider if: You have pain that gets worse or does not get better with medicine. Get help right away if: You have a fever or chills. You develop severe pain. You develop new abdominal pain. You faint. You are unable to urinate. Summary Kidney stones are solid, rock-like deposits that form inside of the kidneys. Kidney stones can cause nausea, vomiting, blood in the urine, abdominal pain, and the urge to urinate frequently. Treatment for kidney stones depends on the size, location, and makeup of the stones. Kidney stones will often pass out of the body through urination. Kidney stones can be prevented by drinking enough fluids, eating a healthy diet, and maintaining a healthy weight. This information is not intended to replace advice given to you by your health care provider. Make sure you discuss any questions you have with your health care provider. Document Released: 04/15/2006 Document Revised: 09/01/2019 Document Reviewed: 09/01/2019 [employer] Patient Education 2019 [employer]. Follow Up Care 10/18/2021 17:28:48 With:Gilberto MADRIGAL Address: [facility] [address], [place] [address]- Business (1) When:10/21/2021 20:11:17 [facility]06-22-2022 Evaluation + Plan noteExtracted from: Title:ED Note Author:Jovan Zacarias DO Date:09/28 06/20 Abdominal pain (R10.9: Unspe cified abdominal pain) Nausea (R11.0: Nausea) Orders: ketorolac, 30 mg = 1 mL, Injection, IV Push, Once, Stop date 10/18/21 17:44:00 EDT, STAT, Start date 10/18/21 17:44:00 EDT, 10/18/21 17:44:00 EDT ondansetron, 4 mg = 2 mL, Injection, IV Push, Once, Stop date 10/18/21 17:44:00 EDT, STAT, Start date 10/18/21 17:44:00 EDT, 10/18/21 17:44:00 EDT Sodium Chloride 0.9% intravenous solution, 1,000 mL, Soln-IV, IV, Once, Stop date 10/18/21 17:44:00 EDT, STAT, Start date 10/18/21 17:44:00 EDT, mL/hr, Infuse over 61, minute(s) Basic Metabolic Panel CBC w/ Auto Diff CT Abdomen/Pelvis w/o Contrast eGFR Hepatic Function Panel Lipase Level UA With Cult Reflex Diagnostic Tests Pending * Urine Culture 10/18/21 Future Scheduled Tests Laboratory* BUN 07/05/21 * Creatinine 07/05/21 Radiology* XR Abdomen 1 View 08/16/21 [facility]03-09-2022 Evaluation + Plan note Future Scheduled Tests Laboratory* BUN 07/05/21 * Creatinine 07/05/21 [facility]03-09-2022 Evaluation + Plan note Future Scheduled Tests Laboratory* BUN 07/05/21 * Creatinine 07/05/21 Radiology* XR Abdomen 1 View 08/16/21 [facility] [id number] Evaluation + Plan note Future Scheduled Tests Laboratory* BUN 07/05/21 * Creatinine 07/05/21 Radiology* MA Mamm Screen w/CAD if perf and 3D [place] 12/13/21 [facility] Evaluation + Plan note Future Appointments Appointment Date:11/01/2021 11:45:00 AM Scheduled Provider:Gilberto MADRIGAL MD Location:[facility] Appointment Type:URO Office Visit Future Scheduled Tests Laboratory* BUN 07/05/21 * Creatinine 07/05/21 Radiology* XR Abdomen 1 View 10/20/21 * XR Abdomen 1 View 08/16/21 [facility] evaluation + Plan note Future Appointments Appointment Date:11/01/2021 11:45:00 AM Scheduled Provider:Gilberto MADRIGAL MD Location:[facility] Appointment Type:URO Office Visit Future Scheduled Tests Laboratory* BUN 07/05/21 * Creatinine 07/05/21 Radiology* XR Abdomen [facility] Appointment Date:05/16/2022 09:15:00 AM Scheduled Provider:Gilberto MADRIGAL MD Location:[facility] Appointment Type:URO Office Visit Future Scheduled Tests Laboratory* BUN 07/05/21 * Creatinine 07/05/21 Radiology* XR Abdomen 1 View 08/16/21 * MA Mamm Screen w/CAD if perf and 3D [place] 12/13/21 [facility] Evaluation + Plan note Future Appointments Appointment Date:06/14/2022 09:00:00 AM Scheduled Provider:Alphonse Muniz Location:[facility] Appointment Type:URO Office Visit Future Scheduled Tests Laboratory* BUN 07/05/21 * Creatinine 07/05/21 Radiology* MA Mamm Screen w/CAD if perf and 3D [place] [facility] Appointment Date:02/25/2023 08:00:00 AM Scheduled Provider: Location:[facility] Appointment Type: Nurse Visit Appointment Date:02/18/2024 11:00:00 AM Scheduled Provider: Location:[facility] Appointment Type: Medicare Wellness Initial Future Scheduled Tests Radiology* XR Abdomen 1 View 11/13/22 * XR Ankle 3+ Views Left 01/31/23 * XR Calcaneus Left 01/31/23 [facility] [place] Evaluation + Plan note Future Appointments Appointment Date:02/18/2024 11:00:00 AM Scheduled Provider: Location:[facility] Appointment Type: Medicare Wellness Initial Future Scheduled Tests Radiology* XR Abdomen 1 View 11/13/22 * XR Ankle 3+ Views Left 01/31/23 * XR Calcaneus Left 01/31/23 [facility] [place] Evaluation + Plan note Future Appointments Appointment Date:04/26/2023 08:00:00 AM Scheduled Provider: Location[facility] Appointment Type:CT Abdomen/Pelvis Combo () Appointment Date:02/18/2024 11:00:00 AM Scheduled Provider: Location:[facility] Appointment Type:FM Medicare Wellness Initial Future Scheduled Tests Radiology* XR Abdomen 1 View 11/13/22 * CT Abdomen/Pelvis w/ Contrast 04/26/23 * XR Ankle 3+ Views Left 01/31/23 * XR Calcaneus Left 01/31/23 [facility] evaluation + Plan note Future Appointments Appointment Date:08/26/2023 11:15:00 AM Scheduled Provider:Gilberto MADRIGAL MD Location:[facility] [place] Appointment Type:URO Office Visit Appointment Date:02/18/2024 11:00:00 AM Scheduled Provider: Location:[facility] Appointment Type:FM Medicare Wellness Initial Future Scheduled Tests Radiology* XR Abdomen 1 View 05/28/23 * XR Abdomen 1 View 11/13/22 * XR Ankle 3+ Views Left 01/31/23 * XR Calcaneus Left 01/31/23 [facility] evaluation + Plan note Future Appointments Appointment Date:08/26/2023 11:15:00 AM Scheduled Provider:Gilberto MADRIGAL MD Location:[facility] [place] Appointment Type:URO Office Visit Appointment Date:09/10/2023 10:40:00 AM Scheduled Provider:Marty Vargas DO Location:[facility] Appointment Type: Open Appointment Date:02/18/2024 11:00:00 AM Scheduled Provider: Location:[facility] Appointment Type: Medicare Wellness Initial Future Scheduled Tests Radiology* XR Abdomen 1 View 05/28/23 * XR Abdomen 1 View 11/13/22 * XR Ankle 3+ Views Left 01/31/23 * XR Calcaneus Left 01/31/23 [facility] evaluation + Plan note Future Appointments Appointment Date:10/11/2023 11:40:00 AM Scheduled Provider:Marty Vargas DO Location:[facility] Appointment Type:FM Open Appointment Date:02/18/2024 11:00:00 AM Scheduled Provider: Location:[facility] Appointment Type:FM Medicare Wellness Initial Future Scheduled Tests Radiology* XR Abdomen 1 View 05/28/23 * XR Abdomen 1 View 11/13/22 * XR Ankle 3+ Views Left 01/31/23 * XR Calcaneus Left 01/31/23 [facility] evaluation + Plan note Future Appointments Appointment Date:02/18/2024 11:00:00 AM Scheduled Provider: Location:[facility] Appointment Type:FM Medicare Wellness Initial Future Scheduled Tests Radiology* XR Abdomen 1 View 05/28/23 * XR Ankle 3+ Views Left 01/31/23 * XR Calcaneus Left 01/31/23 [facility] evaluation + Plan note Future Appointments Appointment Date:01/20/2024 02:00:00 PM Scheduled Provider:Marlin Smith MD Location:[facility] Appointment Type:URO New Patient Appointment Date:02/18/2024 11:00:00 AM Scheduled Provider: Location:[facility] Appointment Type:FM Medicare Wellness Initial Future Scheduled Tests Radiology* XR Abdomen 1 View 05/28/23 * XR Ankle 3+ Views Left 01/31/23 * XR Calcaneus Left 01/31/23 [facility] evaluation + Plan note Future Appointments Appointment Date:02/18/2024 11:00:00 AM Scheduled Provider: Location:[facility] Appointment Type:FM Medicare Wellness Initial Diagnostic Tests Pending * Calculi Analysis Urinary 01/20/24 Future Scheduled Tests Radiology* XR Abdomen 1 View 05/28/23 * XR Ankle 3+ Views Left 01/31/23 * XR Calcaneus Left 01/31/23 [facility] Evaluation + Plan note Future Appointments Appointment Date:02/03/2024 09:30:00 AM Scheduled Provider: Location:[facility] Appointment Type:CV Stress (FT) Appointment Date:02/18/2024 11:00:00 AM Scheduled Provider: Location:[facility] Appointment Type:FM Medicare Wellness Initial Future Scheduled Tests Radiology* XR Abdomen 1 View 05/28/23 * ECG Stress Exercise 02/03/24 * XR Ankle 3+ Views Left 01/31/23 * XR Calcaneus Left 01/31/23 [facility] Evaluation + Plan note Future Appointments Appointment Date:02/18/2024 11:00:00 AM Scheduled Provider: Location:[facility] Appointment Type: Medicare Wellness Initial Future Scheduled Tests Radiology* XR Abdomen 1 View 05/28/23 [facility] Evaluation + Plan note Future Appointments Appointment Date:02/23/2025 11:00:00 AM Scheduled Provider: Location:[facility] Appointment Type: Medicare Wellness Subsequent Future Scheduled Tests Radiology* XR Abdomen 1 View 05/28/23 [facility] evaluation noteNo assessment information available [facility] Work Phone: Hospital course Narrative No data available for this section [facility] No data available for this section [facility] No data available for this section [facility] (narrative) Referred by: Ancelmo DOLL, Miguel Blackwell [facility] Summary Purpose Family History No Family History Records Found No data available for this section No data available for this section No data available for this section No data available for this section No data available for this section No data available for this section No data available for this section No data available for this section No data available for this section No data available for this section No data available for this section No data available for this section No data available for this section No Family History Records Found No data available for this section No data available for this section No data available for this section No data available for this section No Family History Records Found No data available for this section No data available for this section No data available for this section No Family History Records FoundNo Family History Records Found Advance Directives No Advanced Directives Records Found Advance Directive Response Recorded Date/ Time Advance Directives No July 26, 018 4:23pm Chief Complaint and Reason for Visit Chief Complaint Screening Additional Source Comments Care Team (unrecognized sect ion and content) Team Status: Active Member Role Status Dates Cornell Smith NP-C Primary Care Provider Active Team Status: Inactive Member Role Status Dates Referral Self Attending Provider Active Cornell Smith P[employer] WORKER-C Primary Care Provider, Referring Provider Active Team Status: Active Member Role Status Dates Marty Vargas , DO Primary Care Provider Active Team Status: Inactive Member Role Status Dates Referral Self Attending Provider Active Start: S eptember 2023 End: January 03, 2024 Marty Arndt Link , DO Primary Care Provider Active St art: January 03, 2024 End: January 03, 2024 INFORMATION SOURCE (unrecogn ized section and content) DATE CREATED AUTHOR 12/06/2021 [facility] DATE CREATED AUTHOR AUTHOR'S ORGANIZ ATION 01/10/2024 [facility] DATE CREATED AUTHOR AUTHOR'S ORGANIZ ATION 02/08/2024 [facility] DATE CREATED AUTHOR AUTHOR'S ORGANIZ ATION [facility] DATE CREATED AUTHOR AUTHOR'S ORGANIZ ATION 02/21/2024 [facility] Goals (unrecognized section and content) Goals may be documented in a n alternate section FOR RECORDS PERTAINING TO PATIENTS WHO ARE OR HAVE BEEN ENROLLED IN A CHEMICAL DEPENDENCY/SUBSTANCEABUSE PROGRAM, SOME INFORMATION MAY BE OMITTED. This clinical summary was aggregated from multiple sources. Caution should be exercised in using it in the provision of clinical care. This summary normalizes information from multiple sources, and as a consequence, information in this document may materially change the coding, format and clinical context of patient data. In addition, data may be omitted in some cases. CLINICAL DECISIONS SHOULD BE BASED ON THE PRIMARY CLINICAL RECORDS. [facility] [employer] [facility] provides no warranty or guarantee of the accuracy or completeness of information in this document.
[2024-03-06 14:47] LABS: Basophils Percent Auto 0.4 % (0.2-2.0); Eosinophils Absolute Auto 0.3 10^3/uL (0.0-0.7); Eosinophils Percent Auto 3.8 % (0.9-7.0); Hematocrit 39.9 % (36.0-48.0); Hemoglobin 13.1 g/dL (12.0-16.0); Immature Granulocytes Abs Auto 0.01 10^3/uL (0.00-0.03); Immature Granulocytes Pct Auto 0.1 % (0.0-0.5); Lymphocytes Absolute Auto 2.5 10^3/uL (1.2-3.8); Lymphocytes Percent Auto 31.8 % (20.5-60.0); Mean Corpuscular HGB Conc 32.8 g/dL (29.9-35.2); Mean Corpuscular Hemoglobin 28.8 pg (26.7-34.0); Mean Corpuscular Volume 87.7 fL (81.0-99.0); Mean Platelet Volume 9.4 fL (9.5-13.5); Monocytes Absolute Auto 0.6 10^3/uL (0.3-0.8); Monocytes Percent Auto 6.9 % (1.7-12.0); Neutrophils Absolute Auto 4.5 10^3/uL (1.4-6.5); Platelet Count 346 10^3/uL (150-450); Red Blood Count 4.55 10^6/uL (4.20-5.40); Red Cell Distribution Width 13.5 % (11.0-15.0)
--- NOTE | 2024-03-06 14:52 | P.GSHP_ITS ---
History of Present Illness History of Present Illness Chief complaint: left kidney stone Narrative: Patient presents for presurgical testing. The patient was originally scheduled for this procedure on February 04, but had an abnormal EKG and is now rescheduled after medical clearance. The patient states she had an ER visit in December for kidney stones and continues to have flank pain, frequency with urination, urgency with urination, and nocturia. She denies nausea, vomiting, fever, or any other complaints at this time. Review of Systems ROS Narrative REVIEW OF SYSTEMS: Negative except as stated in HPI, ten or more systems reviewed. Constitutional: No fever, chills, weakness ENT: No sore throat or epistaxis Cardiovascular: No edema, chest pain, palpitations, or activity intolerance Respiratory: No shortness of breath, cough, or wheezing Musculoskeletal: No joint pain or swelling Gastrointestinal: No abdominal pain, constipation, diarrhea, or vomiting Genitourinary: No dysuria or hematuria Neurological: No numbness, tingling, weakness, or headache Psychiatric: No mood changes PFSH PFS Medical History (Updated 01/23/24 @ 11:23 by Paulina Crowe NP) Back pain ?M54.9 - Dorsalgia, unspecified (ICD-10) Arthritis ?M19.90 - Unspecified osteoarthritis, unspecified site (ICD-10) Depression ?F32.A - Depression, unspecified (ICD-10) COVID-19 ?U07.1 - COVID-19 (ICD-10) Sleep apnea ?G47.30 - Sleep apnea, unspecified (ICD-10) Pneumonia ?J18.9 - Pneumonia, unspecified organism (ICD-10) Migraine ?G43.909 - Migraine, unspecified, not intractable, without status migrainosus (ICD-10) S/P extracorporeal shock wave therapy ?Z98.890 - Other specified postprocedural states (ICD-10) S/P extracorporeal shock wave therapy ?Z98.890 - Other specified postprocedural states (ICD-10) Kidney stones ?N20.0 - Calculus of kidney (ICD-10) Cataract ?H26.9 - Unspecified cataract (ICD-10) GERD (gastroesophageal reflux disease) ?K21.9 - Gastro-esophageal reflux disease without esophagitis (ICD-10) Elevated blood pressure reading in office without diagnosis of hypertension ?R03.0 - Elevated blood-pressure reading, without diagnosis of hypertension (ICD-10) Postoperative nausea and vomiting ?R11.2 - Nausea with vomiting, unspecified (ICD-10) ?Z98.890 - Other specified postprocedural states (ICD-10) Surgical History (Updated 01/23/24 @ 11:23 by Paulina Crowe NP) H/O hand surgery ?Z98.890 - Other specified postprocedural states (ICD-10) History of cholecystectomy ?Z90.49 - Acquired absence of other specified parts of digestive tract (ICD- 10) History of dilation and curettage ?Z98.890 - Other specified postprocedural states (ICD-10) History of dilation and curettage ?Z98.890 - Other specified postprocedural states (ICD-10) History of colonoscopy ?Z98.890 - Other specified postprocedural states (ICD-10) History of carpal tunnel release ?Z98.890 - Other specified postprocedural states (ICD-10) History of carpal tunnel release ?Z98.890 - Other specified postprocedural states (ICD-10) History of section ?Z98.891 - History of uterine scar from previous surgery (ICD-10) History of section ?Z98.891 - History of uterine scar from previous surgery (ICD-10) History of appendectomy ?Z90.49 - Acquired absence of other specified parts of digestive tract (ICD- 10) History of hysterectomy ?Z90.710 - Acquired absence of both cervix and uterus (ICD-10) Family History (Updated 01/23/24 @ 11:23 by Paulina Crowe NP) Other Family history of colon cancer Family history of hypertension Family history of prostate cancer Family history of stroke Social History (Updated 01/23/24 @ 11:16 by Paulina Crowe NP) Within the past year, how often did you have a drink containing alcohol: never Score interpretation: A score less than 3 is consistent with normal alcohol consumption. Smoking status: Never smoker Non-prescribed substance use: denies use Highest level of school completed/degree received: high school graduate Meds Home Medications and Allergies Home Medications ?Medication ?Instructions ?Recorded ?Confirmed ?Type sertraline 100 mg tablet 100 mg PO QPM 01/23/24 03/06/24 History tamsulosin 0.4 mg capsule 0.4 mg PO Q24H 01/23/24 03/06/24 History Allergies Allergy/AdvReac Type Severity Reaction Status Date / Time No Known Drug Allergies Allergy Verified 03/06/24 14:29 Exam Narrative Exam Narrative: Constitutional: Awake, alert, comfortable, well-appearing, nontoxic, interactive, vital signs as charted Head: Normocephalic, atraumatic Neck: Supple, normal appearance, normal range of motion, no meningeal signs, no lymphadenopathy Respiratory: No respiratory distress, breath sounds clear Cardiovascular: Regular rate and rhythm, strong and regular heart tones Abdomen: Nontender, normal bowel sounds, soft, no CVA tenderness Musculoskeletal: Normal gait, no swelling or edema Skin: No rashes or induration, no lesions, only visible skin inspected Neuro: No neurological deficits, normal sensation Psychiatric: Oriented ?3, normal affect Assessment and Plan Assessment and Plan (1) Kidney stones: Plan Cystoscopy, left ureteroscopy, laser lithotripsy, left stent placement scheduled with Dr. Smith March 11, 2024.
[2024-03-06 14:57] LABS: BUN Creatinine Ratio 12.6; Calcium 9.3 mg/dL (8.5-10.1); Carbon Dioxide 28.5 mmol/L (21.0-32.0); Chloride 108 mmol/L (98-107); Estimated GFR (African America 60 (>=60 mL/min/1.73m^2); Estimated GFR (Non-African Ame 49 (>=60 mL/min/1.73m^2); Glucose 122 mg/dL (74-106); Potassium 4.5 mmol/L (3.5-5.1); Sodium 143 mmol/L (136-145)
[2024-03-06 15:14] LABS: INR 0.96; Partial Thromboplastin Time 28.2 sec (22.3-36.2); Prothrombin Time 10.2 sec (9.0-11.6)
== END 2024-03-06 14:08 | disposition home or self-care (01) ==
LOC: PST 14:08
PROVIDERS: PCP Family Medicine; Visit Provider Urology
DX: Z01.812 Encounter for preprocedural laboratory examination (principal); Z01.818 Encounter for other preprocedural examination; N20.0 Calculus of kidney
CPT/HCPCS: 80048; 85025; 85610; 85730; G0463

== ENCOUNTER 2024-03-11 11:09 | Day surgery (SDC) | payer MEDICARE, SELFPAY ==
[2024-03-06 14:46] VITALS: BP 148/79; PULSE 80; TEMP 36.4; O2SAT 96; BMI 33.4
[2024-03-11] VITALS (9 sets, daily range): BP systolic 136–157; BP diastolic 76–87; PULSE 78–93; TEMP 36–36.1; O2SAT 88–98; BMI 33.5
[2024-03-11] MEDS: SCOPOLAMINE 1 MG/3 DAYS TRANSDERM PATCH 1 PATCH TD (11:52)
[2024-03-11] MEDS: LACTATED RINGER'S SOLUTION 1,000 ML 50 ML IV (11:52)
[2024-03-11] MEDS: CEFAZOLIN SODIUM 2 GM/50 ML D5W PREMIX IV (12:48)
--- NOTE | 2024-03-11 12:55 | P.URON_ITS ---
Urology Surgery Operative Note Operative Note Procedure Date: 03/11/24 Time Out Performed: yes Pre-op Diagnosis: 1. Left proximal ureteral stone, 2. Left kidney stones Post-op Diagnosis: other (Left kidney stones) Procedures performed: Cystoscopy, left retrograde pyelogram, ureteroscopy laser lithotripsy/stone extraction, stent placement Anesthesia: General-LMA (Dr. Borges) Primary Surgeon: Marlin Smith Complications: none Estimated blood loss (mL): 0 Findings: L RPG- narrowing with possible filling defect proximal ureter, no hydronephrosis. Post laser - no extravasation or filling defects 5 mm left lower pole stone, 2x3 mm upper pole stone underwent uncomplicated laser lithotripsy and stone extraction Left proximal ureter with short narrowing ~ 10Fr, likely where prior UPJ stone was, no ureteral stone found Specimens: left kidney stones Drains: 6Fr x 24 cm JJ left ureteral stent Incision: none Indications for Procedures: 64 year old female who was recently diagnosed with a 5 mm left UPJ stone with moderate hydronephrosis and other kidney stones presents today for definitive stone treatment after failed medical expulsive therapy. Surgery delayed due to abnormal preop testing and need for cardiac clearance. After discussion of risks/benefits of management options, she elected to proceed with cystoscopy, left retrograde pyelogram, ureteroscopy with laser lithotripsy/stone extraction, ureteral stent placement under general anesthesia. Risks were discussed including but not limited to bleeding, pain, infection, damage to surrounding structures, inability to treat the stone/place a stent, and need for additional procedures. The patient understands the stent is not permanent and needs to be removed or exchanged within 3 months to prevent encrustation, infection, invasive procedures and/or permanent renal damage. Detailed description of Procedure: After informed consent was obtained, the patient was brought to the operating room and transferred onto the operating table in supine position. Sequential compression devices were placed on bilateral lower extremities. The patient received the appropriate dose of preoperative IV antibiotics and general anesthesia LMA was induced. They were positioned in modified dorsolithotomy with the appropriate pressure points padded, prepped, and draped in the usual sterile fashion for this procedure. An operative safety timeout was performed confirming the patient's identity, laterality and procedure, and all present agreed to proceed. I began by inserting a 22 Belgian rigid cystoscope with 30 degree lens into the patient's urethra and bladder without difficulty. There were no bladder tumors, lesions, stones or foreign bodies. Bilateral ureteral orifices were orthotopic and patent. I turned my attention to the left ureteral orifice and a 6- Belgian open-ended catheter was inserted into the ureteral orifice and dilute contrast was injected for retrograde pyelogram with findings as above. A Sensor wire was inserted into the ureter up to the renal pelvis confirmed on fluoroscopy. A 10/12 Belgian by 36 cm ureteral access sheath was inserted over the wire in a sequential fashion to gain access to the proximal ureter until gentle resistance was met. Next a flexible ureteroscope was inserted through the sheath and advanced to the renal pelvis. No ureteral stone was encountered. Lower pole and upper pole stones were noted as above. The lower pole stone was relocated to the upper pole and a 275 ?m thulium laser fiber was used to break the stone into fragments which were then removed with a 1.8 tipless nitinol basket. After the stones were adequately treated, a full renoscopy was performed confirming no significant residual stones or fragments remained. Contrast was injected to assist with mapping for the renoscopy. The wire was reinserted and a pull down ureteroscopy was performed confirming no stones remained in the ureter. The wire was backloaded through the cystoscope and 6Fr x 24 cm JJ ureteral stent was advanced over the wire, noting adequate curl in the renal pelvis and bladder on fluoroscopic and direct visualization. The bladder was drained and inspected one final time to ensure adequate position of stent and no undue trauma to the bladder was done. The stones were sent for pathology and the cystoscope was removed. The patient tolerated the procedure well without complication. The patient was awakened from anesthesia and sent to PACU in stable condition. Plan: Discharge home with stent pain medications. Follow up in 1-2 weeks for in- office cystoscopy. Other Provider present: No Post Operative care instructions: See discharge instructions Attending Doc Confirm Attending Attestation: Yes
[2024-03-11] MEDS: IOHEXOL 300 MG/ML - 50 ML BTL INJ (13:05)
[2024-03-16 20:08] LABS: Calcium Oxalate Dihydrate 30 % (.); Calcium Oxalate Monohydrate 70 % (.); Size 4x3 mm (.)
== END 2024-03-11 14:52 | disposition home or self-care (01) ==
PROVIDERS: PCP Family Medicine; Visit Provider Urology
PROC: (CPT 52356; principal; 2024-03-11 12:30)
DX: N20.2 Calculus of kidney with calculus of ureter (principal); G47.33 Obstructive sleep apnea (adult) (pediatric); Z90.49 Acquired absence of other specified parts of digestive tract; Z90.710 Acquired absence of both cervix and uterus; Z87.01 Personal history of pneumonia (recurrent)
CPT/HCPCS: 52356; 36415; 74420; 82365; 99999; J0690; J1100; J2250; J2371; J2405; J2704; J3010; Q9967